=== PATIENT | male | born 1970 | race African-American/Black ===

== ENCOUNTER 2016-10-05 00:49 | Emergency (ER) | payer OTHER ==
[~2016-10-05] VITALS: Ht 170.2 cm; Wt 116.0 kg
[~2016-10-05 00:49] MED LIST: AMOXICILLIN500 MG PO; ASPIRIN EC325 MG PO; ATORVASTATI80 MG/TAB PO; AUGMENTIN875TAB PO; BACLOFEN10 MG PO; CARVEDILOL25 MG PO; CLONIDINE0.1 MG PO; COREG25 MG PO; EFFIENT10 MG PO; FLEXERIL PO; HYDRALAZINE50 MG PO; ISOSORB MONO30 MG PO; KEFLEX500 M1 PO; LASIX 40 MG TAB40 MG PO; LISINOPRIL20 MG PO; NAPROSYN500 MG PO; NORVASC2.5 MG PO; PLAVIX75 MG PO; TORSEMIDE20 M1 PO; ULTRAM50 M1 PO; ZOFRAN ODT8 MG PO; ZPAK PO
[2016-10-05 01:51] LABS: HEMATOCRIT 41.5 % (39.0-50.0); HEMOGLOBIN 13.2 g/dl (14.0-18.0); IMMATURE GRANULOCYTES 0.2 % (0.0-1.0); MEAN CELL VOLUME 96.1 fL CALC (80.0-100.0); MEAN CORPUSCULAR HGB 30.6 pG CALC (26.0-32.0); MEAN CORPUSCULAR HGB CONC 31.8 g/L CALC (32.0-36.0); NEUT# 5.14 thou/uL (1.82-7.42); RED BLOOD COUNT 4.32 mill/uL (4.70-6.10); RED CELL DISTRI WIDTH 15.1 % (11.5-15.5)
[2016-10-05 01:56] LABS: ALBUMIN 3.5 g/dL (3.2-5.0); ALKALINE PHOSPHATASE 65 u/l (38-126); ANION GAP 15 (6-22 (CALC)); BILIRUBIN, TOTAL 0.8 mg/dL (0.0-1.4); BUN 24 mg/dL (9-20); BUN/CREATININE RATIO 17 (12-20 (CALC)); CALCIUM 8.7 mg/dL (8.4-10.2); CARBON DIOXIDE 26 mmol/l (22-30); CHLORIDE 106 mmol/l (95-108); CREATININE 1.4 mg/dL (0.7-1.3); GFR 55 ML/MIN (>=60 (CALC)); GFR FOR AFR.AMER. > 60 ML/MIN (>=60 (CALC)); GLUCOSE 116 mg/dL (75-110); POTASSIUM 4.6 mmol/l (3.5-5.1); SGOT/AST 49 u/l (17-59); SGPT/ALT 47 u/l (21-72); SODIUM 142 mmol/l (137-146); TOTAL PROTEIN 6.7 g/dL (6.3-8.2)
[2016-10-05 02:08] LABS: MYOGLOBIN 135 ng/mL (0 - 121)
[2016-10-05 03:30] LABS: URINE BILIRUBIN - DIPSTICK SMALL (NEGATIVE); URINE BLOOD DIPSTICK TRACE-INTACT (NEGATIVE); URINE CLARITY CLOUDY; URINE COLOR YELLOW; URINE GLUCOSE - DIPSTICK NEGATIVE (NEGATIVE); URINE KETONE TRACE mg/dL (NEGATIVE); URINE LEUK ESTERASE NEGATIVE (NEGATIVE); URINE NITRITE - DIPSTICK NEGATIVE (Negative); URINE PROTEIN - DIPSTICK >=300 mg/dL (NEG-TRACE); URINE SPECIFIC GRAVITY >=1.030
[2016-10-05 03:38] LABS: URINE BACTERIA FEW hpf; URINE HYALINE CAST FEW lpf (NONE-RARE); URINE MUCUS FEW hpf (NONE-FEW); URINE SQUAMOUS EPITHELIAL CELL MODERATE EPI/hpf (0-FEW); URINE WAXY CAST MANY lpf
[2016-10-05] MEDS ORDERED: CIPROFLOXACN500 MG PO (03:50)
[2016-10-05 04:53] VITALS: BP 123/85
== END 2016-10-05 05:00 | disposition home or self-care (01) | DRG 312 ==
LOC: ED 00:49
PROVIDERS: Emergency Medicine
DX: R55 Syncope and collapse (principal); T17.928A Food in respiratory tract, part unspecified causing other injury, initial encounter; N39.0 Urinary tract infection, site not specified; Y92.003 Bedroom of unspecified non-institutional (private) residence as the place of occurrence of the external cause; R06.02 Shortness of breath; X58.XXXA Exposure to other specified factors, initial encounter; Y92.009 Unspecified place in unspecified non-institutional (private) residence as the place of occurrence of the external cause

== ENCOUNTER 2016-10-05 16:16 | Emergency (ER) | payer OTHER ==
[~2016-10-05] VITALS: Ht 170.2 cm; Wt 121.0 kg
[~2016-10-05 16:16] MED LIST changes: +CIPROFLOXACN500 MG PO
[2016-10-05 16:58] VITALS: BP 160/110
== END 2016-10-05 17:03 | disposition home or self-care (01) | DRG 206 ==
LOC: ED 16:16
DX: T17.928A Food in respiratory tract, part unspecified causing other injury, initial encounter (principal); R06.02 Shortness of breath; X58.XXXA Exposure to other specified factors, initial encounter; Y92.009 Unspecified place in unspecified non-institutional (private) residence as the place of occurrence of the external cause

== ENCOUNTER 2016-10-22 17:58 | Emergency (ER) | payer OTHER ==
[~2016-10-22] VITALS: Ht 170.2 cm; Wt 125.0 kg
[2016-10-22 18:40] LABS: HEMATOCRIT 41.3 % (39.0-50.0); HEMOGLOBIN 13.4 g/dl (14.0-18.0); IMMATURE GRANULOCYTES 0.1 % (0.0-1.0); MEAN CELL VOLUME 95.4 fL CALC (80.0-100.0); MEAN CORPUSCULAR HGB 30.9 pG CALC (26.0-32.0); MEAN CORPUSCULAR HGB CONC 32.4 g/L CALC (32.0-36.0); NEUT# 5.36 thou/uL (1.82-7.42); RED BLOOD COUNT 4.33 mill/uL (4.70-6.10); RED CELL DISTRI WIDTH 15.1 % (11.5-15.5)
[2016-10-22 18:58] LABS: ALBUMIN 3.9 g/dL (3.2-5.0); ALKALINE PHOSPHATASE 62 u/l (38-126); ANION GAP 17 (6-22 (CALC)); BUN 21 mg/dL (9-20); BUN/CREATININE RATIO 14 (12-20 (CALC)); CALCIUM 9.3 mg/dL (8.4-10.2); CARBON DIOXIDE 28 mmol/l (22-30); CHLORIDE 101 mmol/l (95-108); CREATININE 1.5 mg/dL (0.7-1.3); GFR 51 ML/MIN (>=60 (CALC)); GFR FOR AFR.AMER. > 60 ML/MIN (>=60 (CALC)); GLUCOSE 119 mg/dL (75-110); POTASSIUM 4.5 mmol/l (3.5-5.1); SGOT/AST 40 u/l (17-59); SGPT/ALT 48 u/l (21-72); SODIUM 141 mmol/l (137-146); TOTAL PROTEIN 7.1 g/dL (6.3-8.2)
[2016-10-22 19:10] LABS: MYOGLOBIN 105 ng/mL (0 - 121)
[2016-10-22 20:40] LABS: URINE BILIRUBIN - DIPSTICK NEGATIVE (NEGATIVE); URINE BLOOD DIPSTICK NEGATIVE (NEGATIVE); URINE CLARITY CLEAR; URINE COLOR YELLOW; URINE GLUCOSE - DIPSTICK NEGATIVE (NEGATIVE); URINE KETONE NEGATIVE (NEGATIVE); URINE LEUK ESTERASE NEGATIVE (NEGATIVE); URINE NITRITE - DIPSTICK NEGATIVE (Negative); URINE PROTEIN - DIPSTICK 30 mg/dL (NEG-TRACE); URINE SPECIFIC GRAVITY 1.025; URINE UROBILINOGEN - DIPSTICK 0.2 E.U./dL (0.2)
[2016-10-22 20:43] LABS: URINE RBC 0-2 RBC/hpf (0-5); URINE WBC 0-2 WBC/hpf (0-5)
[2016-10-22] MEDS ORDERED: MEDDOSEPAK PO (21:26)
[2016-10-22 21:42] VITALS: BP 149/97
== END 2016-10-22 21:39 | disposition home or self-care (01) | DRG 192 ==
LOC: ED 17:58
DX: J44.1 Chronic obstructive pulmonary disease with (acute) exacerbation (principal); I10 Essential (primary) hypertension; E78.5 Hyperlipidemia, unspecified; I25.2 Old myocardial infarction; Z95.5 Presence of coronary angioplasty implant and graft; Z86.73 Personal history of transient ischemic attack (TIA), and cerebral infarction without residual deficits; R55 Syncope and collapse

== ENCOUNTER 2016-12-02 03:30 | Emergency (ER) | payer OTHER ==
[~2016-12-02] VITALS: Ht 170.2 cm; Wt 121.8 kg
[~2016-12-02 03:30] MED LIST changes: +MEDDOSEPAK PO
[2016-12-02] MEDS ORDERED: LASIX 20 MG20 MG/TAB PO (03:55)
[2016-12-02] MEDS ORDERED: NITROGLYCERIN0.4 MG SL (03:57)
[2016-12-02] MEDS ORDERED: CLONIDINE PO (04:00)
[2016-12-02 04:19] LABS: HEMATOCRIT 39.7 % (39.0-50.0); HEMOGLOBIN 12.5 g/dl (14.0-18.0); IMMATURE GRANULOCYTES 0.3 % (0.0-1.0); MEAN CELL VOLUME 97.3 fL CALC (80.0-100.0); MEAN CORPUSCULAR HGB 30.6 pG CALC (26.0-32.0); MEAN CORPUSCULAR HGB CONC 31.5 g/L CALC (32.0-36.0); NEUT# 4.57 thou/uL (1.82-7.42); RED BLOOD COUNT 4.08 mill/uL (4.70-6.10); RED CELL DISTRI WIDTH 15.5 % (11.5-15.5)
[2016-12-02 04:26] LABS: ALBUMIN 3.4 g/dL (3.2-5.0); ALKALINE PHOSPHATASE 51 u/l (38-126); ANION GAP 12 (6-22 (CALC)); BUN 20 mg/dL (9-20); BUN/CREATININE RATIO 14 (12-20 (CALC)); CALCIUM 8.6 mg/dL (8.4-10.2); CARBON DIOXIDE 27 mmol/l (22-30); CHLORIDE 106 mmol/l (95-108); CREATININE 1.4 mg/dL (0.7-1.3); GFR 55 ML/MIN (>=60 (CALC)); GFR FOR AFR.AMER. > 60 ML/MIN (>=60 (CALC)); GLUCOSE 103 mg/dL (75-110); SGOT/AST 34 u/l (17-59); SGPT/ALT 44 u/l (21-72); SODIUM 141 mmol/l (137-146); TOTAL PROTEIN 6.4 g/dL (6.3-8.2)
[2016-12-02 04:31] LABS: INTERNATIONAL NORMALIZED RATIO 1.1 RATIO (0.7-1.3); PROTHROMBIN TIME 11.8 SECONDS (9.0-12.5)
[2016-12-02 04:38] LABS: MYOGLOBIN 80 ng/mL (0 - 121)
[2016-12-02 05:44] VITALS: BP 100/56
[2016-12-03] MEDS ORDERED: ANTIVERT PO (15:34)
== END 2016-12-02 05:55 | disposition home or self-care (01) | DRG 312 ==
LOC: ED 03:30
PROVIDERS: Emergency Medicine
DX: R55 Syncope and collapse (principal); I10 Essential (primary) hypertension; E78.5 Hyperlipidemia, unspecified; I25.2 Old myocardial infarction; Z86.73 Personal history of transient ischemic attack (TIA), and cerebral infarction without residual deficits; Z95.5 Presence of coronary angioplasty implant and graft

== ENCOUNTER 2016-12-03 12:41 | Emergency (ER) | payer OTHER ==
[~2016-12-03] VITALS: Ht 170.2 cm; Wt 128.5 kg
[~2016-12-03 12:41] MED LIST changes: +CLONIDINE PO; +LASIX 20 MG20 MG/TAB PO; +NITROGLYCERIN0.4 MG SL
[2016-12-03 14:04] LABS: HEMATOCRIT 40.2 % (39.0-50.0); HEMOGLOBIN 12.9 g/dl (14.0-18.0); IMMATURE GRANULOCYTES 0.3 % (0.0-1.0); MEAN CELL VOLUME 95.9 fL CALC (80.0-100.0); MEAN CORPUSCULAR HGB 30.8 pG CALC (26.0-32.0); MEAN CORPUSCULAR HGB CONC 32.1 g/L CALC (32.0-36.0); NEUT# 5.02 thou/uL (1.82-7.42); RED BLOOD COUNT 4.19 mill/uL (4.70-6.10); RED CELL DISTRI WIDTH 15.5 % (11.5-15.5)
[2016-12-03 14:29] LABS: ALBUMIN 3.5 g/dL (3.2-5.0); BILIRUBIN, TOTAL 1.2 mg/dL (0.0-1.4); CREATININE 1.7 mg/dL (0.7-1.3); POTASSIUM 4.3 mmol/l (3.5-5.1); TOTAL PROTEIN 6.3 g/dL (6.3-8.2)
[2016-12-03] MEDS ORDERED: ANTIVERT PO (15:34)
[2016-12-03 15:37] VITALS: BP 144/94
== END 2016-12-03 15:27 | disposition home or self-care (01) | DRG 149 ==
LOC: ED 12:41
PROVIDERS: Emergency Medicine
DX: R42 Dizziness and giddiness (principal); I10 Essential (primary) hypertension; E78.5 Hyperlipidemia, unspecified; I25.2 Old myocardial infarction; Z86.73 Personal history of transient ischemic attack (TIA), and cerebral infarction without residual deficits; Z95.5 Presence of coronary angioplasty implant and graft

== ENCOUNTER 2016-12-14 19:58 | Emergency (ER) | payer OTHER ==
[~2016-12-14] VITALS: Ht 170.2 cm; Wt 127.6 kg
[~2016-12-14 19:58] MED LIST changes: +ANTIVERT PO
[2016-12-14 20:38] LABS: HEMATOCRIT 41.8 % (39.0-50.0); HEMOGLOBIN 13.3 g/dl (14.0-18.0); IMMATURE GRANULOCYTES 0.3 % (0.0-1.0); MEAN CELL VOLUME 96.1 fL CALC (80.0-100.0); MEAN CORPUSCULAR HGB 30.6 pG CALC (26.0-32.0); MEAN CORPUSCULAR HGB CONC 31.8 g/L CALC (32.0-36.0); NEUT# 5.09 thou/uL (1.82-7.42); RED BLOOD COUNT 4.35 mill/uL (4.70-6.10); RED CELL DISTRI WIDTH 15.7 % (11.5-15.5)
[2016-12-14 21:11] LABS: ALBUMIN 3.6 g/dL (3.2-5.0); CALCIUM 8.9 mg/dL (8.4-10.2); CREATININE 1.6 mg/dL (0.7-1.3); TOTAL PROTEIN 6.4 g/dL (6.3-8.2)
[2016-12-14] MEDS ORDERED: MEDDOSEPAK PO (23:02)
[2016-12-14] MEDS ORDERED: ZPAK PO (23:02)
[2016-12-14 23:10] LABS: URINE BILIRUBIN - DIPSTICK NEGATIVE (NEGATIVE); URINE BLOOD DIPSTICK NEGATIVE (NEGATIVE); URINE CLARITY SLIGHT CLOUDY; URINE COLOR YELLOW; URINE GLUCOSE - DIPSTICK NEGATIVE (NEGATIVE); URINE KETONE NEGATIVE (NEGATIVE); URINE LEUK ESTERASE NEGATIVE (NEGATIVE); URINE NITRITE - DIPSTICK NEGATIVE (Negative); URINE PROTEIN - DIPSTICK 100 mg/dL (NEG-TRACE); URINE SPECIFIC GRAVITY >=1.030
[2016-12-14 23:16] LABS: BARBITURATES NEGATIVE (NEGATIVE); COCAINE NEGATIVE (NEGATIVE); METHADONE NEGATIVE (NEGATIVE); OXCYCODONE NEGATIVE (NEGATIVE); TETRAHYDROCANNABIONOL NEGATIVE (NEGATIVE); TRICYLIC ANTIDEPRESSANTS NEGATIVE (NEGATIVE)
[2016-12-14 23:17] LABS: URINE BACTERIA FEW hpf; URINE HYALINE CAST FEW lpf (NONE-RARE); URINE RBC 0-2 RBC/hpf (0-5); URINE SQUAMOUS EPITHELIAL CELL MANY EPI/hpf (0-FEW)
[2016-12-14 23:45] VITALS: BP 151/100
== END 2016-12-14 23:45 | disposition home or self-care (01) | DRG 192 ==
LOC: ED 19:58
PROVIDERS: Emergency Medicine
DX: J44.1 Chronic obstructive pulmonary disease with (acute) exacerbation (principal); I10 Essential (primary) hypertension; R55 Syncope and collapse; E78.5 Hyperlipidemia, unspecified; I25.2 Old myocardial infarction; Z86.73 Personal history of transient ischemic attack (TIA), and cerebral infarction without residual deficits

== ENCOUNTER 2017-02-12 19:50 | Emergency (ER) | payer OTHER ==
[~2017-02-12] VITALS: Ht 170.2 cm; Wt 127.0 kg
[2017-02-12 21:13] LABS: HEMATOCRIT 42.9 % (39.0-50.0); HEMOGLOBIN 13.7 g/dl (14.0-18.0); IMMATURE GRANULOCYTES 0.3 % (0.0-1.0); MEAN CELL VOLUME 97.5 fL CALC (80.0-100.0); MEAN CORPUSCULAR HGB 31.1 pG CALC (26.0-32.0); MEAN CORPUSCULAR HGB CONC 31.9 g/L CALC (32.0-36.0); NEUT# 4.46 thou/uL (1.82-7.42); RED BLOOD COUNT 4.4 mill/uL (4.70-6.10); RED CELL DISTRI WIDTH 15.4 % (11.5-15.5)
[2017-02-12 21:27] LABS: ALBUMIN 4.2 g/dL (3.2-5.0); ALKALINE PHOSPHATASE 65 u/l (38-126); ANION GAP 15 (6-22 (CALC)); BILIRUBIN, TOTAL 1.6 mg/dL (0.0-1.4); BUN 16 mg/dL (9-20); BUN/CREATININE RATIO 15 (12-20 (CALC)); CALCIUM 8.7 mg/dL (8.4-10.2); CARBON DIOXIDE 28 mmol/l (22-30); CHLORIDE 104 mmol/l (95-108); CREATININE 1.1 mg/dL (0.7-1.3); GFR > 60 ML/MIN (>=60 (CALC)); GFR FOR AFR.AMER. > 60 ML/MIN (>=60 (CALC)); GLUCOSE 93 mg/dL (75-110); POTASSIUM 4.9 mmol/l (3.5-5.1); SGOT/AST 72 u/l (17-59); SGPT/ALT 31 u/l (21-72); SODIUM 142 mmol/l (137-146); TOTAL PROTEIN 7.6 g/dL (6.3-8.2)
[2017-02-12 22:26] VITALS: BP 178/101
== END 2017-02-12 22:26 | disposition home or self-care (01) | DRG 607 ==
LOC: ED 19:50
PROVIDERS: Emergency Medicine
DX: R22.43 Localized swelling, mass and lump, lower limb, bilateral (principal); I10 Essential (primary) hypertension; Z86.73 Personal history of transient ischemic attack (TIA), and cerebral infarction without residual deficits; I25.2 Old myocardial infarction; Z95.5 Presence of coronary angioplasty implant and graft; Z79.82 Long term (current) use of aspirin

== ENCOUNTER 2017-03-17 02:49 | Observation (INO) | payer OTHER ==
[~2017-03-17] VITALS: Ht 170.2 cm; Wt 128.2 kg
[2017-03-17] VITALS (17 sets, daily range): BP systolic 72–198; BP diastolic 43–112
[~2017-03-17 02:49] MED LIST changes: +DIOVAN320 MG PO; -LISINOPRIL20 MG PO
[2017-03-17 03:42] LABS: HEMATOCRIT 41.5 % (39.0-50.0); HEMOGLOBIN 13.2 g/dl (14.0-18.0); IMMATURE GRANULOCYTES 0.3 % (0.0-1.0); MEAN CORPUSCULAR HGB 30.8 pG CALC (26.0-32.0); MEAN CORPUSCULAR HGB CONC 31.8 g/L CALC (32.0-36.0); NEUT# 4.32 thou/uL (1.82-7.42); RED BLOOD COUNT 4.28 mill/uL (4.70-6.10); RED CELL DISTRI WIDTH 14.9 % (11.5-15.5)
[2017-03-17 04:03] LABS: ACT PARTIAL THROMBO TIME 24.7 SECONDS (20.0-32.5); ALKALINE PHOSPHATASE 62 u/l (38-126); ANION GAP 17 (6-22 (CALC)); BILIRUBIN, TOTAL 1.4 mg/dL (0.0-1.4); BUN 19 mg/dL (9-20); BUN/CREATININE RATIO 17 (12-20 (CALC)); CALCIUM 8.8 mg/dL (8.4-10.2); CARBON DIOXIDE 23 mmol/l (22-30); CHLORIDE 106 mmol/l (95-108); CREATININE 1.1 mg/dL (0.7-1.3); GFR > 60 ML/MIN (>=60 (CALC)); GFR FOR AFR.AMER. > 60 ML/MIN (>=60 (CALC)); GLUCOSE 103 mg/dL (75-110); INTERNATIONAL NORMALIZED RATIO 1.1 RATIO (0.7-1.3); POTASSIUM 4.1 mmol/l (3.5-5.1); PROTHROMBIN TIME 11.9 SECONDS (9.0-12.5); SGOT/AST 41 u/l (17-59); SGPT/ALT 36 u/l (21-72); SODIUM 142 mmol/l (137-146); TOTAL PROTEIN 6.9 g/dL (6.3-8.2)
[2017-03-17 04:13] LABS: MYOGLOBIN 87 ng/mL (0 - 121)
[2017-03-17 06:14] LABS: URINE BILIRUBIN - DIPSTICK NEGATIVE (NEGATIVE); URINE BLOOD DIPSTICK NEGATIVE (NEGATIVE); URINE CLARITY CLEAR; URINE COLOR YELLOW; URINE GLUCOSE - DIPSTICK NEGATIVE (NEGATIVE); URINE KETONE NEGATIVE (NEGATIVE); URINE LEUK ESTERASE NEGATIVE (NEGATIVE); URINE NITRITE - DIPSTICK NEGATIVE (Negative); URINE PROTEIN - DIPSTICK 100 mg/dL (NEG-TRACE); URINE UROBILINOGEN - DIPSTICK 0.2 E.U./dL (0.2)
[2017-03-17 06:30] LABS: URINE RBC 0-2 RBC/hpf (0-5); URINE WBC 0-2 WBC/hpf (0-5)
[2017-03-18] VITALS (12 sets, daily range): BP systolic 81–160; BP diastolic 49–100
[2017-03-18 05:05] LABS: CALCIUM 8.1 mg/dL (8.4-10.2); CREATININE 1.8 mg/dL (0.7-1.3); POTASSIUM 4.9 mmol/l (3.5-5.1)
[2017-03-18 06:01] LABS: HEMATOCRIT 37.7 % (39.0-50.0); HEMOGLOBIN 11.8 g/dl (14.0-18.0); MEAN CORPUSCULAR HGB 31.3 pG CALC (26.0-32.0); MEAN CORPUSCULAR HGB CONC 31.3 g/L CALC (32.0-36.0); RED BLOOD COUNT 3.77 mill/uL (4.70-6.10); RED CELL DISTRI WIDTH 14.8 % (11.5-15.5)
[2017-03-19 00:05] VITALS: BP 144/82
[2017-03-19 04:50] VITALS: BP 137/83
[2017-03-19 06:56] LABS: HEMATOCRIT 39.7 % (39.0-50.0); HEMOGLOBIN 12.8 g/dl (14.0-18.0); IMMATURE GRANULOCYTES 0.5 % (0.0-1.0); MEAN CELL VOLUME 97.5 fL CALC (80.0-100.0); MEAN CORPUSCULAR HGB 31.4 pG CALC (26.0-32.0); MEAN CORPUSCULAR HGB CONC 32.2 g/L CALC (32.0-36.0); NEUT# 8.16 thou/uL (1.82-7.42); RED BLOOD COUNT 4.07 mill/uL (4.70-6.10); RED CELL DISTRI WIDTH 14.3 % (11.5-15.5)
[2017-03-19 07:09] LABS: ANION GAP 16 (6-22 (CALC)); BUN 28 mg/dL (9-20); BUN/CREATININE RATIO 21 (12-20 (CALC)); CALCIUM 8.8 mg/dL (8.4-10.2); CARBON DIOXIDE 26 mmol/l (22-30); CHLORIDE 103 mmol/l (95-108); CREATININE 1.3 mg/dL (0.7-1.3); GFR 60 ML/MIN (>=60 (CALC)); GFR FOR AFR.AMER. > 60 ML/MIN (>=60 (CALC)); GLUCOSE 137 mg/dL (75-110); MAGNESIUM 1.5 mg/dL (1.6-2.3); POTASSIUM 4.8 mmol/l (3.5-5.1); SODIUM 141 mmol/l (137-146)
[2017-03-19 07:51] VITALS: BP 142/89
[2017-03-19 11:22] VITALS: BP 170/96
[2017-03-19] MEDS ORDERED: PREDNISONE10 MG PO (11:44)
[2017-03-19] MEDS ORDERED: IPRATROPIUM BR0.02 % IN (11:44)
== END 2017-03-19 14:45 | disposition home or self-care (01) | DRG 305 ==
LOC: ED 02:49 → ED-I 06:24 → ED 06:44 → ICU 06:45 → MS2 03-18 15:54
PROVIDERS: Emergency Medicine; Nurse Practitioner Family; ADMIT Internal Medicine; ATTEND Internal Medicine
DX: I16.0 Hypertensive urgency (principal); J96.10 Chronic respiratory failure, unspecified whether with hypoxia or hypercapnia; N17.9 Acute kidney failure, unspecified; I50.22 Chronic systolic (congestive) heart failure; J44.1 Chronic obstructive pulmonary disease with (acute) exacerbation; Z68.41 Body mass index [BMI] 40.0-44.9, adult; I13.0 Hypertensive heart and chronic kidney disease with heart failure and stage 1 through stage 4 chronic kidney disease, or unspecified chronic kidney disease; N18.2 Chronic kidney disease, stage 2 (mild); I25.2 Old myocardial infarction; E78.5 Hyperlipidemia, unspecified; I25.5 Ischemic cardiomyopathy; E66.01 Morbid (severe) obesity due to excess calories; E83.42 Hypomagnesemia; G47.33 Obstructive sleep apnea (adult) (pediatric); I25.118 Atherosclerotic heart disease of native coronary artery with other forms of angina pectoris; Z86.73 Personal history of transient ischemic attack (TIA), and cerebral infarction without residual deficits; Z95.5 Presence of coronary angioplasty implant and graft; Z99.81 Dependence on supplemental oxygen; Z91.19 Patient's noncompliance with other medical treatment and regimen
CPT/HCPCS: G0378; J1650

== ENCOUNTER 2017-04-16 22:48 | Observation (INO) | payer OTHER ==
[~2017-04-16] VITALS: Ht 170.2 cm; Wt 130.0 kg
[~2017-04-16 22:48] MED LIST changes: +IPRATROPIUM BR0.02 % IN; +PREDNISONE10 MG PO
[2017-04-17 01:53] LABS: HEMATOCRIT 42.5 % (39.0-50.0); HEMOGLOBIN 13.2 g/dl (14.0-18.0); IMMATURE GRANULOCYTES 0.3 % (0.0-1.0); MEAN CELL VOLUME 96.8 fL CALC (80.0-100.0); MEAN CORPUSCULAR HGB 30.1 pG CALC (26.0-32.0); MEAN CORPUSCULAR HGB CONC 31.1 g/L CALC (32.0-36.0); NEUT# 4.62 thou/uL (1.82-7.42); RED BLOOD COUNT 4.39 mill/uL (4.70-6.10); RED CELL DISTRI WIDTH 15.2 % (11.5-15.5)
[2017-04-17 02:09] LABS: ALBUMIN 3.8 g/dL (3.2-5.0); ALKALINE PHOSPHATASE 70 u/l (38-126); AMYLASE 38 u/l (30-110); ANION GAP 16 (6-22 (CALC)); BILIRUBIN, TOTAL 1.4 mg/dL (0.0-1.4); BUN 14 mg/dL (9-20); BUN/CREATININE RATIO 10 (12-20 (CALC)); CALCIUM 8.8 mg/dL (8.4-10.2); CARBON DIOXIDE 31 mmol/l (22-30); CHLORIDE 103 mmol/l (95-108); CREATININE 1.3 mg/dL (0.7-1.3); GFR 60 ML/MIN (>=60 (CALC)); GFR FOR AFR.AMER. > 60 ML/MIN (>=60 (CALC)); GLUCOSE 95 mg/dL (75-110); LIPASE 63 u/l (23-300); POTASSIUM 4.2 mmol/l (3.5-5.1); SGOT/AST 41 u/l (17-59); SGPT/ALT 44 u/l (21-72); SODIUM 146 mmol/l (137-146); TOTAL PROTEIN 6.8 g/dL (6.3-8.2)
[2017-04-17 04:55] VITALS: BP 182/120
[2017-04-17 05:20] LABS: URINE BILIRUBIN - DIPSTICK NEGATIVE (NEGATIVE); URINE BLOOD DIPSTICK TRACE-INTACT (NEGATIVE); URINE CLARITY CLEAR; URINE COLOR YELLOW; URINE GLUCOSE - DIPSTICK NEGATIVE (NEGATIVE); URINE KETONE NEGATIVE (NEGATIVE); URINE LEUK ESTERASE NEGATIVE (NEGATIVE); URINE NITRITE - DIPSTICK NEGATIVE (Negative); URINE PH 5.5 (4.5-8.0); URINE PROTEIN - DIPSTICK 100 mg/dL (NEG-TRACE); URINE UROBILINOGEN - DIPSTICK 0.2 E.U./dL (0.2)
[2017-04-17 05:26] LABS: URINE BACTERIA FEW hpf; URINE MUCUS FEW hpf (NONE-FEW); URINE SQUAMOUS EPITHELIAL CELL MODERATE EPI/hpf (0-FEW)
[2017-04-17 05:52] VITALS: BP 168/86
[2017-04-17] MEDS ORDERED: PREDNISONE10 MG PO (13:43)
[2017-04-17 14:04] VITALS: BP 177/101
== END 2017-04-17 16:10 | disposition home or self-care (01) | DRG 392 ==
LOC: ED 22:48 → ED-I 04-17 03:45 → ED 04-17 04:04 → ICU 04-17 04:05
PROVIDERS: Emergency Medicine; ADMIT Internal Medicine; ATTEND Internal Medicine
DX: R10.33 Periumbilical pain (principal); I11.0 Hypertensive heart disease with heart failure; I50.9 Heart failure, unspecified; Z68.41 Body mass index [BMI] 40.0-44.9, adult; I25.10 Atherosclerotic heart disease of native coronary artery without angina pectoris; J44.9 Chronic obstructive pulmonary disease, unspecified; I25.5 Ischemic cardiomyopathy; E66.01 Morbid (severe) obesity due to excess calories; Z95.5 Presence of coronary angioplasty implant and graft
CPT/HCPCS: Q9967; S0164

== ENCOUNTER 2017-04-24 07:05 | Inpatient (IN) | payer OTHER ==
[~2017-04-24] VITALS: Ht 170.2 cm; Wt 131.0 kg
[2017-04-24 07:35] LABS: HEMATOCRIT 40.1 % (39.0-50.0); HEMOGLOBIN 12.9 g/dl (14.0-18.0); IMMATURE GRANULOCYTES 0.1 % (0.0-1.0); MEAN CELL VOLUME 95.5 fL CALC (80.0-100.0); MEAN CORPUSCULAR HGB 30.7 pG CALC (26.0-32.0); MEAN CORPUSCULAR HGB CONC 32.2 g/L CALC (32.0-36.0); NEUT# 4.43 thou/uL (1.82-7.42); RED BLOOD COUNT 4.2 mill/uL (4.70-6.10); RED CELL DISTRI WIDTH 15.2 % (11.5-15.5)
[2017-04-24 08:15] LABS: ALBUMIN 3.9 g/dL (3.2-5.0); ALKALINE PHOSPHATASE 83 u/l (38-126); ANION GAP 16 (6-22 (CALC)); BILIRUBIN, TOTAL 1.2 mg/dL (0.0-1.4); BUN 21 mg/dL (9-20); BUN/CREATININE RATIO 15 (12-20 (CALC)); CALCIUM 8.5 mg/dL (8.4-10.2); CARBON DIOXIDE 28 mmol/l (22-30); CHLORIDE 104 mmol/l (95-108); CREATININE 1.4 mg/dL (0.7-1.3); GFR 55 ML/MIN (>=60 (CALC)); GFR FOR AFR.AMER. > 60 ML/MIN (>=60 (CALC)); GLUCOSE 125 mg/dL (75-110); POTASSIUM 3.6 mmol/l (3.5-5.1); SGOT/AST 47 u/l (17-59); SGPT/ALT 51 u/l (21-72); SODIUM 144 mmol/l (137-146); TOTAL PROTEIN 6.9 g/dL (6.3-8.2)
[2017-04-24 08:27] LABS: MYOGLOBIN 96 ng/mL (0 - 121)
[2017-04-24 12:21] VITALS: BP 159/97
[2017-04-24 15:14] VITALS: BP 161/81
[2017-04-24 16:46] LABS: MAGNESIUM 1.4 mg/dL (1.6-2.3); POTASSIUM 5.1 mmol/l (3.5-5.1)
[2017-04-24 19:20] VITALS: BP 139/85
[2017-04-25 00:10] VITALS: BP 113/60
[2017-04-25 05:03] VITALS: BP 117/70
[2017-04-25 05:53] LABS: HEMATOCRIT 40.1 % (39.0-50.0); HEMOGLOBIN 12.4 g/dl (14.0-18.0); IMMATURE GRANULOCYTES 0.3 % (0.0-1.0); MEAN CELL VOLUME 98.3 fL CALC (80.0-100.0); MEAN CORPUSCULAR HGB 30.4 pG CALC (26.0-32.0); MEAN CORPUSCULAR HGB CONC 30.9 g/L CALC (32.0-36.0); NEUT# 8.39 thou/uL (1.82-7.42); RED BLOOD COUNT 4.08 mill/uL (4.70-6.10); RED CELL DISTRI WIDTH 14.9 % (11.5-15.5)
[2017-04-25 06:09] LABS: ANION GAP 17 (6-22 (CALC)); BUN 23 mg/dL (9-20); BUN/CREATININE RATIO 17 (12-20 (CALC)); CALCIUM 8.5 mg/dL (8.4-10.2); CARBON DIOXIDE 29 mmol/l (22-30); CHLORIDE 102 mmol/l (95-108); CREATININE 1.4 mg/dL (0.7-1.3); GFR 55 ML/MIN (>=60 (CALC)); GFR FOR AFR.AMER. > 60 ML/MIN (>=60 (CALC)); GLUCOSE 133 mg/dL (75-110); MAGNESIUM 2.2 mg/dL (1.6-2.3); POTASSIUM 5.1 mmol/l (3.5-5.1); SODIUM 143 mmol/l (137-146)
[2017-04-25 09:20] VITALS: BP 112/70
[2017-04-25 11:00] VITALS: BP 114/79
[2017-04-25 16:16] VITALS: BP 93/64
[2017-04-25 19:20] VITALS: BP 115/65
[2017-04-26 00:30] VITALS: BP 92/54
[2017-04-26 04:30] VITALS: BP 107/77
[2017-04-26 05:00] VITALS: BP 106/75
[2017-04-26 06:05] LABS: HEMATOCRIT 40.5 % (39.0-50.0); HEMOGLOBIN 12.7 g/dl (14.0-18.0); IMMATURE GRANULOCYTES 0.6 % (0.0-1.0); MEAN CELL VOLUME 97.4 fL CALC (80.0-100.0); MEAN CORPUSCULAR HGB 30.5 pG CALC (26.0-32.0); MEAN CORPUSCULAR HGB CONC 31.4 g/L CALC (32.0-36.0); NEUT# 12.3 thou/uL (1.82-7.42); RED BLOOD COUNT 4.16 mill/uL (4.70-6.10); RED CELL DISTRI WIDTH 15.2 % (11.5-15.5)
[2017-04-26 06:15] LABS: CALCIUM 8.7 mg/dL (8.4-10.2); CREATININE 2.1 mg/dL (0.7-1.3); MAGNESIUM 2.3 mg/dL (1.6-2.3); POTASSIUM 5.1 mmol/l (3.5-5.1)
[2017-04-26 07:49] VITALS: BP 104/74
[2017-04-26 11:00] VITALS: BP 95/65
[2017-04-26 19:55] VITALS: BP 121/82
[2017-04-27 04:45] VITALS: BP 131/89
[2017-04-27 07:33] LABS: HEMATOCRIT 41.3 % (39.0-50.0); HEMOGLOBIN 12.9 g/dl (14.0-18.0); MEAN CELL VOLUME 95.6 fL CALC (80.0-100.0); MEAN CORPUSCULAR HGB 29.9 pG CALC (26.0-32.0); MEAN CORPUSCULAR HGB CONC 31.2 g/L CALC (32.0-36.0); RED BLOOD COUNT 4.32 mill/uL (4.70-6.10); RED CELL DISTRI WIDTH 15.3 % (11.5-15.5)
[2017-04-27 07:51] LABS: CALCIUM 8.7 mg/dL (8.4-10.2); CREATININE 2.1 mg/dL (0.7-1.3)
[2017-04-27 08:00] VITALS: BP 126/85
[2017-04-27 08:33] LABS: POTASSIUM 5.4 mmol/l (3.5-5.1)
[2017-04-27 12:00] VITALS: BP 140/79
[2017-04-27] MEDS ORDERED: PANTOPRAZOLE SO40 M1 PO (14:25)
== END 2017-04-27 15:05 | disposition home or self-care (01) | DRG 291 ==
LOC: ED 07:05 → ED-I 08:26 → ED 08:40 → MS2 08:41
PROVIDERS: Emergency Medicine; Nurse Practitioner Family; ADMIT Internal Medicine; ATTEND Internal Medicine
DX: I13.0 Hypertensive heart and chronic kidney disease with heart failure and stage 1 through stage 4 chronic kidney disease, or unspecified chronic kidney disease (principal); I50.23 Acute on chronic systolic (congestive) heart failure; J96.20 Acute and chronic respiratory failure, unspecified whether with hypoxia or hypercapnia; N17.9 Acute kidney failure, unspecified; Z68.41 Body mass index [BMI] 40.0-44.9, adult; J44.1 Chronic obstructive pulmonary disease with (acute) exacerbation; N18.2 Chronic kidney disease, stage 2 (mild); I25.118 Atherosclerotic heart disease of native coronary artery with other forms of angina pectoris; I25.5 Ischemic cardiomyopathy; I25.2 Old myocardial infarction; E78.5 Hyperlipidemia, unspecified; E66.01 Morbid (severe) obesity due to excess calories; G47.33 Obstructive sleep apnea (adult) (pediatric); E83.42 Hypomagnesemia; Z91.19 Patient's noncompliance with other medical treatment and regimen; Z95.5 Presence of coronary angioplasty implant and graft; Z86.73 Personal history of transient ischemic attack (TIA), and cerebral infarction without residual deficits
CPT/HCPCS: S0164

== ENCOUNTER 2017-05-02 00:12 | Inpatient (IN) | payer OTHER ==
[~2017-05-02] VITALS: Ht 170.2 cm; Wt 136.0 kg
[~2017-05-02 00:12] MED LIST changes: +PANTOPRAZOLE SO40 M1 PO
[2017-05-02 01:28] LABS: HEMATOCRIT 39.7 % (39.0-50.0); HEMOGLOBIN 12.3 g/dl (14.0-18.0); IMMATURE GRANULOCYTES 0.4 % (0.0-1.0); MEAN CELL VOLUME 95.7 fL CALC (80.0-100.0); MEAN CORPUSCULAR HGB 29.6 pG CALC (26.0-32.0); NEUT# 6.22 thou/uL (1.82-7.42); RED BLOOD COUNT 4.15 mill/uL (4.70-6.10); RED CELL DISTRI WIDTH 15.2 % (11.5-15.5); URINE BILIRUBIN - DIPSTICK NEGATIVE (NEGATIVE); URINE BLOOD DIPSTICK NEGATIVE (NEGATIVE); URINE CLARITY CLEAR; URINE COLOR YELLOW; URINE GLUCOSE - DIPSTICK NEGATIVE (NEGATIVE); URINE KETONE NEGATIVE (NEGATIVE); URINE LEUK ESTERASE NEGATIVE (NEGATIVE); URINE NITRITE - DIPSTICK NEGATIVE (Negative); URINE PROTEIN - DIPSTICK NEGATIVE (NEG-TRACE); URINE UROBILINOGEN - DIPSTICK 0.2 E.U./dL (0.2)
[2017-05-02 01:40] LABS: ALBUMIN 3.6 g/dL (3.2-5.0); ALKALINE PHOSPHATASE 63 u/l (38-126); ANION GAP 15 (6-22 (CALC)); BILIRUBIN, TOTAL 1.6 mg/dL (0.0-1.4); BUN 21 mg/dL (9-20); BUN/CREATININE RATIO 20 (12-20 (CALC)); CALCIUM 8.4 mg/dL (8.4-10.2); CARBON DIOXIDE 31 mmol/l (22-30); CHLORIDE 105 mmol/l (95-108); CREATININE 1.1 mg/dL (0.7-1.3); GFR > 60 ML/MIN (>=60 (CALC)); GFR FOR AFR.AMER. > 60 ML/MIN (>=60 (CALC)); GLUCOSE 86 mg/dL (75-110); POTASSIUM 4.2 mmol/l (3.5-5.1); SGOT/AST 50 u/l (17-59); SGPT/ALT 70 u/l (21-72); SODIUM 147 mmol/l (137-146); TOTAL PROTEIN 6.1 g/dL (6.3-8.2)
[2017-05-02 01:46] LABS: ACT PARTIAL THROMBO TIME 24.5 SECONDS (20.0-32.5); INTERNATIONAL NORMALIZED RATIO 1.1 RATIO (0.7-1.3); PROTHROMBIN TIME 11.9 SECONDS (9.0-12.5)
[2017-05-02 01:55] LABS: MYOGLOBIN 65 ng/mL (0 - 121)
[2017-05-02 06:12] VITALS: BP 162/88
[2017-05-02 08:01] VITALS: BP 169/116
[2017-05-02 10:56] VITALS: BP 184/103
[2017-05-02 14:12] VITALS: BP 114/61
== END 2017-05-02 15:00 | disposition short-term general hospital (02) | DRG 303 ==
LOC: ED 00:12 → ED-I 04:00 → ED 04:42 → MS2 04:43
PROVIDERS: Emergency Medicine; ADMIT Internal Medicine; ATTEND Internal Medicine
DX: I25.5 Ischemic cardiomyopathy (principal); I13.0 Hypertensive heart and chronic kidney disease with heart failure and stage 1 through stage 4 chronic kidney disease, or unspecified chronic kidney disease; I50.22 Chronic systolic (congestive) heart failure; Z68.42 Body mass index [BMI] 45.0-49.9, adult; E66.01 Morbid (severe) obesity due to excess calories; J44.9 Chronic obstructive pulmonary disease, unspecified; G47.33 Obstructive sleep apnea (adult) (pediatric); F17.200 Nicotine dependence, unspecified, uncomplicated; F12.90 Cannabis use, unspecified, uncomplicated; I25.118 Atherosclerotic heart disease of native coronary artery with other forms of angina pectoris; N18.9 Chronic kidney disease, unspecified; Z95.5 Presence of coronary angioplasty implant and graft
CPT/HCPCS: G0378

== ENCOUNTER 2017-05-26 05:36 | Emergency (ER) | payer OTHER ==
[~2017-05-26] VITALS: Ht 170.2 cm; Wt 119.4 kg
[2017-05-26] MEDS ORDERED: PERCOCET 5/325M1 TAB PO (06:51)
[2017-05-26] MEDS ORDERED: AMOXICILLIN500 MG PO (06:51)
[2017-05-26 06:56] VITALS: BP 134/97
[2017-05-27] MEDS ORDERED: ULTRAM50 M1 PO (21:19)
== END 2017-05-26 07:00 | disposition home or self-care (01) | DRG 153 ==
LOC: ED 05:36
DX: H66.91 Otitis media, unspecified, right ear (principal); I11.0 Hypertensive heart disease with heart failure; I50.9 Heart failure, unspecified; E78.5 Hyperlipidemia, unspecified; I25.2 Old myocardial infarction; J44.9 Chronic obstructive pulmonary disease, unspecified; Z95.5 Presence of coronary angioplasty implant and graft; Z99.81 Dependence on supplemental oxygen; Z86.73 Personal history of transient ischemic attack (TIA), and cerebral infarction without residual deficits

== ENCOUNTER 2017-05-27 20:02 | Emergency (ER) | payer OTHER ==
[~2017-05-27] VITALS: Ht 170.2 cm; Wt 118.8 kg
[~2017-05-27 20:02] MED LIST changes: +PERCOCET 5/325M1 TAB PO
[2017-05-27] MEDS ORDERED: ULTRAM50 M1 PO (21:19)
[2017-05-27 21:35] VITALS: BP 155/88
== END 2017-05-27 21:36 | disposition home or self-care (01) | DRG 563 ==
LOC: ED 20:02
DX: S93.601A Unspecified sprain of right foot, initial encounter (principal); I10 Essential (primary) hypertension; J44.9 Chronic obstructive pulmonary disease, unspecified; E78.5 Hyperlipidemia, unspecified; I25.2 Old myocardial infarction; W19.XXXA Unspecified fall, initial encounter; Y93.9 Activity, unspecified; Y92.009 Unspecified place in unspecified non-institutional (private) residence as the place of occurrence of the external cause; Z99.81 Dependence on supplemental oxygen; Z86.73 Personal history of transient ischemic attack (TIA), and cerebral infarction without residual deficits; Z95.5 Presence of coronary angioplasty implant and graft

== ENCOUNTER 2017-07-09 02:41 | Emergency (ER) | payer OTHER ==
[~2017-07-09] VITALS: Ht 170.2 cm; Wt 116.4 kg
[2017-07-09] MEDS ORDERED: UNK DIURETIC (03:15)
[2017-07-09] MEDS ORDERED: ROBITUSSIN AC10 ML PO (03:16)
[2017-07-09 03:46] LABS: BILIRUBIN, TOTAL 0.8 mg/dL (0.0-1.4); CALCIUM 8.7 mg/dL (8.4-10.2); CREATININE 1.6 mg/dL (0.7-1.3); POTASSIUM 4.7 mmol/l (3.5-5.1); TOTAL PROTEIN 6.8 g/dL (6.3-8.2)
[2017-07-09 03:56] LABS: HEMATOCRIT 41.3 % (39.0-50.0); HEMOGLOBIN 13.1 g/dl (14.0-18.0); IMMATURE GRANULOCYTES 0.1 % (0.0-1.0); MEAN CELL VOLUME 94.7 fL CALC (80.0-100.0); MEAN CORPUSCULAR HGB CONC 31.7 g/L CALC (32.0-36.0); NEUT# 4.25 thou/uL (1.82-7.42); RED BLOOD COUNT 4.36 mill/uL (4.70-6.10)
[2017-07-09 04:07] LABS: URINE BILIRUBIN - DIPSTICK NEGATIVE (NEGATIVE); URINE BLOOD DIPSTICK TRACE-INTACT (NEGATIVE); URINE COLOR YELLOW; URINE GLUCOSE - DIPSTICK NEGATIVE (NEGATIVE); URINE KETONE NEGATIVE (NEGATIVE); URINE LEUK ESTERASE NEGATIVE (NEGATIVE); URINE NITRITE - DIPSTICK NEGATIVE (Negative); URINE PROTEIN - DIPSTICK >=300 mg/dL (NEG-TRACE); URINE SPECIFIC GRAVITY >=1.030
[2017-07-09 04:08] LABS: URINE CLARITY CLEAR
[2017-07-09 04:11] LABS: BARBITURATES NEGATIVE (NEGATIVE); COCAINE NEGATIVE (NEGATIVE); METHADONE NEGATIVE (NEGATIVE); OXCYCODONE NEGATIVE (NEGATIVE); TETRAHYDROCANNABIONOL NEGATIVE (NEGATIVE); TRICYLIC ANTIDEPRESSANTS NEGATIVE (NEGATIVE)
[2017-07-09 04:18] LABS: URINE BACTERIA FEW hpf; URINE TRANSITIONAL EPI. CELLS FEW hpf
[2017-07-09 04:35] VITALS: BP 131/80
[2017-07-09] MEDS ORDERED: ANTIVERT PO (04:59)
== END 2017-07-09 05:00 | disposition home or self-care (01) | DRG 149 ==
LOC: ED 02:41
PROVIDERS: Emergency Medicine
DX: R42 Dizziness and giddiness (principal); I11.0 Hypertensive heart disease with heart failure; I50.9 Heart failure, unspecified; Z99.81 Dependence on supplemental oxygen; N28.9 Disorder of kidney and ureter, unspecified; E78.5 Hyperlipidemia, unspecified; I25.2 Old myocardial infarction; Z86.73 Personal history of transient ischemic attack (TIA), and cerebral infarction without residual deficits; Z95.5 Presence of coronary angioplasty implant and graft

== ENCOUNTER 2017-07-20 13:04 | Emergency (ER) | payer OTHER ==
[~2017-07-20] VITALS: Ht 170.2 cm; Wt 121.0 kg
[~2017-07-20 13:04] MED LIST changes: +ROBITUSSIN AC10 ML PO; +UNK DIURETIC
[2017-07-20 13:47] LABS: HEMATOCRIT 39.5 % (39.0-50.0); HEMOGLOBIN 12.7 g/dl (14.0-18.0); IMMATURE GRANULOCYTES 0.3 % (0.0-1.0); MEAN CELL VOLUME 92.1 fL CALC (80.0-100.0); MEAN CORPUSCULAR HGB 29.6 pG CALC (26.0-32.0); MEAN CORPUSCULAR HGB CONC 32.2 g/L CALC (32.0-36.0); NEUT# 5.86 thou/uL (1.82-7.42); RED BLOOD COUNT 4.29 mill/uL (4.70-6.10); RED CELL DISTRI WIDTH 16.7 % (11.5-15.5)
[2017-07-20 14:02] LABS: ALBUMIN 4.1 g/dL (3.2-5.0); ALKALINE PHOSPHATASE 71 u/l (38-126); ANION GAP 14 (6-22 (CALC)); BILIRUBIN, TOTAL 1.3 mg/dL (0.0-1.4); BUN 17 mg/dL (9-20); BUN/CREATININE RATIO 14 (12-20 (CALC)); CALCIUM 9.4 mg/dL (8.4-10.2); CARBON DIOXIDE 28 mmol/l (22-30); CHLORIDE 107 mmol/l (95-108); CREATININE 1.2 mg/dL (0.7-1.3); GFR > 60 ML/MIN (>=60 (CALC)); GFR FOR AFR.AMER. > 60 ML/MIN (>=60 (CALC)); GLUCOSE 111 mg/dL (75-110); POTASSIUM 3.8 mmol/l (3.5-5.1); SGOT/AST 50 u/l (17-59); SGPT/ALT 43 u/l (21-72); SODIUM 146 mmol/l (137-146); TOTAL PROTEIN 6.9 g/dL (6.3-8.2)
[2017-07-20 14:11] LABS: MYOGLOBIN 189 ng/mL (0 - 121)
[2017-07-20] MEDS ORDERED: LORTAB 1010 MG PO (15:09)
[2017-07-20 15:18] VITALS: BP 158/86
== END 2017-07-20 15:34 | disposition home or self-care (01) | DRG 563 ==
LOC: ED 13:04
PROVIDERS: Emergency Medicine
DX: S93.402A Sprain of unspecified ligament of left ankle, initial encounter (principal); I11.0 Hypertensive heart disease with heart failure; I50.9 Heart failure, unspecified; W19.XXXA Unspecified fall, initial encounter

== ENCOUNTER 2017-08-11 02:55 | Emergency (ER) | payer OTHER ==
[~2017-08-11] VITALS: Ht 170.2 cm; Wt 121.4 kg
[~2017-08-11 02:55] MED LIST changes: +LORTAB 1010 MG PO
[2017-08-11] MEDS ORDERED: CETIRIZINE10 MG PO (03:00)
[2017-08-11] MEDS ORDERED: DIOVAN320 MG PO (03:01)
[2017-08-11] MEDS ORDERED: PLAVIX75 MG PO (03:02)
[2017-08-11] MEDS ORDERED: BUMETANIDE1 MG PO (03:04)
[2017-08-11] MEDS ORDERED: DIOVAN160 MG PO (03:05)
[2017-08-11 03:48] LABS: HEMATOCRIT 38.1 % (39.0-50.0); HEMOGLOBIN 11.6 g/dl (14.0-18.0); IMMATURE GRANULOCYTES 0.4 % (0.0-1.0); MEAN CELL VOLUME 94.5 fL CALC (80.0-100.0); MEAN CORPUSCULAR HGB 28.8 pG CALC (26.0-32.0); MEAN CORPUSCULAR HGB CONC 30.4 g/L CALC (32.0-36.0); NEUT# 5.07 thou/uL (1.82-7.42); RED BLOOD COUNT 4.03 mill/uL (4.70-6.10); RED CELL DISTRI WIDTH 16.9 % (11.5-15.5)
[2017-08-11 04:02] LABS: ALKALINE PHOSPHATASE 79 u/l (38-126); ANION GAP 18 (6-22 (CALC)); BILIRUBIN, TOTAL 0.9 mg/dL (0.0-1.4); BUN 17 mg/dL (9-20); BUN/CREATININE RATIO 14 (12-20 (CALC)); CALCIUM 8.9 mg/dL (8.4-10.2); CARBON DIOXIDE 26 mmol/l (22-30); CHLORIDE 106 mmol/l (95-108); CREATININE 1.2 mg/dL (0.7-1.3); GFR > 60 ML/MIN (>=60 (CALC)); GFR FOR AFR.AMER. > 60 ML/MIN (>=60 (CALC)); GLUCOSE 118 mg/dL (75-110); POTASSIUM 4.1 mmol/l (3.5-5.1); SGOT/AST 41 u/l (17-59); SGPT/ALT 25 u/l (21-72); SODIUM 146 mmol/l (137-146)
[2017-08-11 04:14] LABS: MYOGLOBIN 79 ng/mL (0 - 121)
[2017-08-11 04:55] VITALS: BP 163/93
== END 2017-08-11 05:15 | disposition home or self-care (01) | DRG 948 ==
LOC: ED 02:55
PROVIDERS: Emergency Medicine
DX: R53.1 Weakness (principal); I42.9 Cardiomyopathy, unspecified; I50.9 Heart failure, unspecified; R60.0 Localized edema; E11.9 Type 2 diabetes mellitus without complications; I10 Essential (primary) hypertension; Z95.810 Presence of automatic (implantable) cardiac defibrillator

== ENCOUNTER 2017-08-12 20:25 | Inpatient (IN) | payer OTHER ==
[~2017-08-12] VITALS: Ht 170.2 cm; Wt 134.0 kg
[~2017-08-12 20:25] MED LIST changes: +BUMETANIDE1 MG PO; +CETIRIZINE10 MG PO; +DIOVAN160 MG PO
--- NOTE | 2017-08-12 21:14 | NUR ---
PT TAKEN TO ER ROOM 15 BY CORINNE. PT STATES HE TOOK HIS MEDS. STATES HE USES [facility] AT HOME TO GET AROUND. REPORT GIVEN TO ER .
--- NOTE | 2017-08-12 21:23 | NUR ---
PT. WITH C/O EDEMA TO BLE +4 AND ABD. HARD AND DISTENDED AND PAINFUL.
[2017-08-12 21:27] LABS: HEMATOCRIT 41.1 % (39.0-50.0); HEMOGLOBIN 12.5 g/dl (14.0-18.0); IMMATURE GRANULOCYTES 0.3 % (0.0-1.0); MEAN CELL VOLUME 93.4 fL CALC (80.0-100.0); MEAN CORPUSCULAR HGB 28.4 pG CALC (26.0-32.0); MEAN CORPUSCULAR HGB CONC 30.4 g/L CALC (32.0-36.0); NEUT# 3.91 thou/uL (1.82-7.42); RED BLOOD COUNT 4.4 mill/uL (4.70-6.10); RED CELL DISTRI WIDTH 16.8 % (11.5-15.5)
[2017-08-12 21:37] LABS: ALBUMIN 4.3 g/dL (3.2-5.0); ALKALINE PHOSPHATASE 92 u/l (38-126); BILIRUBIN, TOTAL 1.3 mg/dL (0.0-1.4); BUN 18 mg/dL (9-20); BUN/CREATININE RATIO 14 (12-20 (CALC)); CALCIUM 9.3 mg/dL (8.4-10.2); CARBON DIOXIDE 26 mmol/l (22-30); CHLORIDE 103 mmol/l (95-108); CREATININE 1.3 mg/dL (0.7-1.3); GFR 60 ML/MIN (>=60 (CALC)); GFR FOR AFR.AMER. > 60 ML/MIN (>=60 (CALC)); GLUCOSE 108 mg/dL (75-110); LIPASE 46 u/l (23-300); POTASSIUM 4.1 mmol/l (3.5-5.1); SGOT/AST 47 u/l (17-59); SGPT/ALT 39 u/l (21-72); TOTAL PROTEIN 7.5 g/dL (6.3-8.2)
[2017-08-12 21:39] LABS: ANION GAP 16 (6-22 (CALC)); SODIUM 141 mmol/l (137-146)
--- NOTE | 2017-08-12 21:50 | NUR ---
IV LASIX GIVEN PER MD ORDER.
--- NOTE | 2017-08-12 21:51 | NUR ---
O2 2 LIT. NC APPLIED.
--- NOTE | 2017-08-12 21:55 | NUR ---
IV LABETALOL GIVEN PER MD ORDER.
[2017-08-12 22:00] LABS: URINE BLOOD DIPSTICK SMALL (NEGATIVE); URINE COLOR YELLOW; URINE GLUCOSE - DIPSTICK NEGATIVE (NEGATIVE); URINE KETONE NEGATIVE (NEGATIVE); URINE LEUK ESTERASE NEGATIVE (NEGATIVE); URINE NITRITE - DIPSTICK NEGATIVE (Negative); URINE PH 5.5 (4.5-8.0); URINE PROTEIN - DIPSTICK >=300 mg/dL (NEG-TRACE); URINE SPECIFIC GRAVITY >=1.030
[2017-08-12 22:11] LABS: URINE BILIRUBIN - DIPSTICK NEGATIVE (NEGATIVE); URINE CLARITY CLEAR
--- NOTE | 2017-08-12 22:55 | NUR ---
MD IN ROOM TO DISCUSS CLINICAL FINDINGS WITH PT. AND TO ALSO MAKE HIM AWARE OF ADMISSION, VERBALIZED UNDERSTANDING.
--- NOTE | 2017-08-12 23:54 | NUR ---
PT. VOIDED 1 LIT CLEAR CLAIRE URINE.
--- NOTE | 2017-08-12 23:58 | NUR ---
Admission Note Report Given to: TISH HEREDIA Transported by: Wheelchair X Stretcher Transported with: X Nurse Transporter X Patent IV X O2 X Paper Machine Supervisor
[2017-08-13] VITALS (7 sets, daily range): BP systolic 99–157; BP diastolic 70–98
--- NOTE | 2017-08-13 00:15 | NUR ---
PT ARRIVED TO FLOOR WITH ER STAFF. PT AMBULATED TO SCALE; THEN TO BED. VITAL SIGNS OBTAINED. PT ORIENTED TO ROOM AND CALL LIGHT SYSTEM. PT DENIES ANY PAIN OR DISCOMFORT. NO DISTRESS NOTED.O2 2L IN PLACE; PT STATES HOME USE OF O2. ABD DISTENDED; FIRM. BOWEL SOUNDS PRESENT. EDEMA +4 LEG/FEET BILAT NOTED. PEDAL PULSES PALPATED BILAT. TELE IN PLACE. IV RAC FLUSHED WITHOUT DIFFICULTY; NO REDNESS OR EDEMA NOTED. FREQUENT ROUNDS MADE. SAFETY PRECAUTIONS REINFORCED. CALL LIGHT WITHIN REACH.
--- NOTE | 2017-08-13 00:27 | NUR ---
PT. TRANSFERED VIA STRETCHER, TO [facility], NO C/O.
--- NOTE | 2017-08-13 04:15 | NUR ---
TELE IN PLACE. NO DISTRESS NOTED; O2 IN PLACE. ASSESSMENT UNCHANGED. CALL LIGHT WITHIN REACH.
[2017-08-13 06:10] LABS: HEMATOCRIT 37.1 % (39.0-50.0); HEMOGLOBIN 11.5 g/dl (14.0-18.0); MEAN CELL VOLUME 92.5 fL CALC (80.0-100.0); MEAN CORPUSCULAR HGB 28.7 pG CALC (26.0-32.0); RED BLOOD COUNT 4.01 mill/uL (4.70-6.10); RED CELL DISTRI WIDTH 16.6 % (11.5-15.5)
[2017-08-13 06:21] LABS: ANION GAP 17 (6-22 (CALC)); BUN 18 mg/dL (9-20); BUN/CREATININE RATIO 14 (12-20 (CALC)); CALCIUM 9.2 mg/dL (8.4-10.2); CARBON DIOXIDE 25 mmol/l (22-30); CHLORIDE 104 mmol/l (95-108); CREATININE 1.3 mg/dL (0.7-1.3); GFR 60 ML/MIN (>=60 (CALC)); GFR FOR AFR.AMER. > 60 ML/MIN (>=60 (CALC)); GLUCOSE 108 mg/dL (75-110); MAGNESIUM 1.4 mg/dL (1.6-2.3); POTASSIUM 4.7 mmol/l (3.5-5.1); SODIUM 141 mmol/l (137-146)
--- NOTE | 2017-08-13 08:00 | NUR ---
PT RESTING WITH EYES CLOSED; AROUSED EASILY TO VERBAL STIMULI; NO COMPLAINTS VOICED; TELE MONITOR IN PLACE; CALL SAMPSON WITHIN REACH; WILL CONTINUE TO MONITOR.
--- NOTE | 2017-08-13 12:30 | NUR ---
PT IN HIGH BALDERAS POSITION TOLERATING LUNCH WELL; NO COMPLAINTS VOICED; CALL SAMPSON WITHIN REACH; WILL CONTINUE TO MONITOR.
--- NOTE | 2017-08-13 16:47 | NUR ---
PT RESTING WITH EYES CLOSED; NO S/SX OF DISTRESS NOTED
--- NOTE | 2017-08-13 19:05 | NUR ---
REPORT RECEIVED FROM GIOVANNA PALENCIA;PT IN RESTROOM AT THIS TIME;PT VOICES NO COMPLAINTS OR NEEDED;PT EDUCATED TO CALL FOR ASSISTANCE IF NEEDED;CALL LIGHT IN REACH;WILL CONTINUE TO MONITOR
--- NOTE | 2017-08-13 21:15 | NUR ---
PT RESTING IN SEMI FOWLERS POSITION WATCHING TV;A&O X3;ASSESSMENT COMPLETED;RESPIRATIONS EVEN AND UNLABORED,SHALLOW ON 02 @ 2L VIA NC;DIMINISHED LUNG SOUNDS NOTED;PEDAL PULSES WEAK,4+ PITTING EDEMA NOTED TO BILATERAL ANKLES;FEET ELEVATED ON X2 PILLOWS;TELE MONITOR IN PLACE;#20G TO RAC FLUSHED AND PATENT;SKIN INTACT;PT VOICES NO COMPLAINTS OR DISCOMFORTS;PT ENCOURAGED TO CALL FOR ASSISTANCE IF NEEDED;FALL PRECAUTIONS IN PLACE WITH CALL LIGHT IN REACH;WILL CONTINUE TO MONITOR
--- NOTE | 2017-08-13 23:30 | NUR ---
PT APPEARS TO BE SLEEPING IN SEMI FOWLERS POSITION;WOKE PT TO ADMINISTER SCHEDULED MEDICATION AND OBTAIN VS;RESPIRATIONS EVEN AND UNLABORED, SHALLOW ON 02;PT NEEDS TO BE FREQUENTLY REMINDED TO KEEP OXYGEN ON;TELE MONITOR IN PLACE;PT DENIES ANY NEEDS;FALL PRECAUTIONS IN PLACE WITH CALL LIGHT IN REACH;WILL CONTINUE TO MONITOR
[2017-08-14] VITALS (7 sets, daily range): BP systolic 102–134; BP diastolic 68–90
--- NOTE | 2017-08-14 05:50 | NUR ---
PT RESTING ON BEDSIDE COMPLAINING OF BACK PAIN;PT AND WRITTER DISCUSSED ORDERED PAIN MEDICATIONS;PT REFUSES PAIN MEDICATIONS;WARM PACKS PROVIDED AND PT RE-POSITIONED INTO THE RECLINER;TELE MONITOR IN PLACE;PT VOIDED 700CC OF DARK YELLOW URINE INTO URINAL;TELE MONITOR IN PLACE;RESPIRATIONS SHALLOW ON O2 @ 2L;SAFETY PRECAUTIONS REINFORCED;CALL LIGHT IN REACH;WILL CONTINUE TO MONITOR
--- NOTE | 2017-08-14 07:45 | NUR ---
ASSESSMENT IS COMPLETED: IV SITE IS FREE FROM REDNESS OR EDEMA. TELE MONITOR IN PLACE. PT IS SITTING UP IN THE CHAIR DOSES OFF ,
[2017-08-14 08:59] LABS: HEMATOCRIT 39.1 % (39.0-50.0); HEMOGLOBIN 11.8 g/dl (14.0-18.0); MEAN CORPUSCULAR HGB 28.4 pG CALC (26.0-32.0); MEAN CORPUSCULAR HGB CONC 30.2 g/L CALC (32.0-36.0); RED BLOOD COUNT 4.16 mill/uL (4.70-6.10); RED CELL DISTRI WIDTH 16.7 % (11.5-15.5)
[2017-08-14 09:06] LABS: CALCIUM 9.1 mg/dL (8.4-10.2); INTERNATIONAL NORMALIZED RATIO 1.1 RATIO (0.7-1.3); MAGNESIUM 1.8 mg/dL (1.6-2.3); POTASSIUM 4.9 mmol/l (3.5-5.1); PROTHROMBIN TIME 12.1 SECONDS (9.0-12.5)
--- NOTE | 2017-08-14 12:15 | NUR ---
PT IS SITTING IN THE CHAIR. NO DISTRESS NOTED. IV SITE IS FREE FROM REDNESS OR EDEMA. CONTIUE TO OSBERVE AND MONITOR.
--- NOTE | 2017-08-14 16:15 | NUR ---
PT IS SITTING UP IN THE CHAIR. NO DISTRESS NOTED. IV SITE IS FREE FROM REDNESS OR EDEMA. HAS HAD SOME WEEPING NOTED. CONTINUE TO OSBERVE AND MONITOR.
--- NOTE | 2017-08-14 16:16 | NUR ---
Pt was seen for medrounds. Medications were explained along with their purposes. Pt seemed tearful. Pt noted that he fell on the way to the bathroom earlier. Nursing staff was alerted. Pt had no concerns or questions. Handed the pt his phone upon request, thanked him, and wished him well.
--- NOTE | 2017-08-14 16:46 | NUR ---
SPOKE WITH PT RE: FALL. HE STATED" I FELL YESTERDAY,NOT TODAY". INFORMED THAT THE PHARMACIST STUDENT WAS UNDER THE IMPRESSION THAT HE FELL TODAY. STATED" I TOLD HIM THAT WAS YESTERDAY NOT TODAY".
--- NOTE | 2017-08-14 19:45 | NUR ---
PT RESTING IN BED WATCHING TV. PT IS ALERT AND ORIENTED X3. PERRLA. LUNGS ARE CLEAR AND DIMINISHED. RESP ARE EVEN AND UNLABORED. NO DISTRESS NOTED. HR REGULAR. PULSES PALPABLE THROUGHOUT. 4+ EDEMA TO BILAT LOWER EXTREMITIES. BS ACTIVE. PT VOIDING VIA URINAL. #20 RAC. NO REDNESS OR EDEMA NOTED. WILL CONTINUE TO MONITOR
--- NOTE | 2017-08-15 | NUR ---
PT RESTING IN BED WITH EYES CLOSED. RESP ARE EVEN AND UNLABORED. NO DISTRESS NOTED. WILL CONTINUE TO MONITOR
--- NOTE | 2017-08-15 04:05 | NUR ---
PT RESTING IN BED WITH EYES CLOSED. RESP ARE EVEN AND UNLABORED. NO DISTRESS NOTED. WILL CONTINUE TO MONITOR
[2017-08-15 05:00] VITALS: BP 117/82
--- NOTE | 2017-08-15 05:00 | NUR ---
LAB INTO DRAW AM LABS
--- NOTE | 2017-08-15 05:48 | NUR ---
PT REFUSED AM HEPARIN AND STATES HE IS AWAITING DISCHARGE
[2017-08-15 05:49] LABS: HEMATOCRIT 38.5 % (39.0-50.0); HEMOGLOBIN 11.7 g/dl (14.0-18.0); IMMATURE GRANULOCYTES 0.3 % (0.0-1.0); MEAN CELL VOLUME 92.5 fL CALC (80.0-100.0); MEAN CORPUSCULAR HGB 28.1 pG CALC (26.0-32.0); MEAN CORPUSCULAR HGB CONC 30.4 g/L CALC (32.0-36.0); NEUT# 3.35 thou/uL (1.82-7.42); RED BLOOD COUNT 4.16 mill/uL (4.70-6.10); RED CELL DISTRI WIDTH 16.7 % (11.5-15.5)
[2017-08-15 06:11] LABS: CALCIUM 9.1 mg/dL (8.4-10.2); CREATININE 2.1 mg/dL (0.7-1.3); MAGNESIUM 1.7 mg/dL (1.6-2.3); POTASSIUM 4.4 mmol/l (3.5-5.1)
--- NOTE | 2017-08-15 07:50 | NUR ---
ASSESSMENT IS COMPLETED: IV SITE IS FREE FROM REDNESS OR EDEMA. NO DISTRESS MOTED. CONTINUE TO OSEBRVE AND MONITOR.
[2017-08-15 11:36] VITALS: BP 109/74
--- NOTE | 2017-08-15 12:30 | NUR ---
PT IS SITTING UP ON THE SIDE OF THE BED WITH NO DISTRESS NTOED. CONTINUE TO OSBERVE AND MONITOR.
[2017-08-15 15:23] VITALS: BP 109/76
--- NOTE | 2017-08-15 16:30 | NUR ---
PT IS RELAXING IN BED WITH MO DISTRESS NOTED. IV SITE IS FREE FROM REDMESS OR EDEMA. CONTINUE TO OSEBRVE AND MONITOR.
[2017-08-15 19:22] VITALS: BP 117/80
--- NOTE | 2017-08-15 20:00 | NUR ---
PT SITTING UP ON SIDE OF BED. PT IS ALERT AND ORIENTED X3. PERRLA. RESP ARE EVEN AND UNLABORED. NO DISTRESS NOTED. LUNGS ARE CLEAR AND DIMINISHED IN BASES. TELE IN PLACE. HR REGULAR. PULSES PALPABLE THROUGHOUT. 4+ EDEMA TO BILAT LOWER EXTREMITIES. BS ACTIVE. PT REPORTS A NORMAL BM EARLIER TODAY. #20 RAC SALINE LOCKED. NO REDNESS OR EDEMA NOTED. REINFORCED STRICT I&O WITH PATIENT. WILL CONTINUE TO MONITOR
[2017-08-15 23:52] VITALS: BP 141/94
--- NOTE | 2017-08-16 | NUR ---
PT RESTING IN BED WITH EYES CLOSED. RESP ARE EVEN AND UNLABORED. NO DISTRESS NOTED WILL CONTINUE TO MONITOR
[2017-08-16 03:27] VITALS: BP 105/70
--- NOTE | 2017-08-16 04:00 | NUR ---
PT RESTING IN BED WITH EYES CLOSED. RESP ARE EVEN AND UNLABORED. NO DISTRESS NOTED. WILL CONTINUE TO MONITOR
[2017-08-16 07:53] LABS: HEMATOCRIT 38.7 % (39.0-50.0); HEMOGLOBIN 11.9 g/dl (14.0-18.0); IMMATURE GRANULOCYTES 0.3 % (0.0-1.0); MEAN CELL VOLUME 91.7 fL CALC (80.0-100.0); MEAN CORPUSCULAR HGB 28.2 pG CALC (26.0-32.0); MEAN CORPUSCULAR HGB CONC 30.7 g/L CALC (32.0-36.0); NEUT# 3.54 thou/uL (1.82-7.42); RED BLOOD COUNT 4.22 mill/uL (4.70-6.10); RED CELL DISTRI WIDTH 16.3 % (11.5-15.5)
[2017-08-16 08:04] LABS: CALCIUM 9.1 mg/dL (8.4-10.2); MAGNESIUM 1.4 mg/dL (1.6-2.3); POTASSIUM 4.4 mmol/l (3.5-5.1)
--- NOTE | 2017-08-16 08:10 | NUR ---
ASSESSEMEMT IS COMPLETED; NO DISTRESS NOTED. A LITTLE MORE AWAKE THIS AM. IV SITE IS FREE FROM REDNESS OR EDEMA. TELE MONITOR IN PLACE.
[2017-08-16 08:15] VITALS: BP 115/52
[2017-08-16 11:32] VITALS: BP 115/78
--- NOTE | 2017-08-16 12:45 | NUR ---
PT HAS BEEN SITTING UP ON THE SIDE OF THE BED, NO DISTRESS NOTED. IV SITE IS FREE FROM REDNESS OR EDEMA.
[2017-08-16] MEDS ORDERED: ZITHROMAX500 MG PO (14:04)
[2017-08-16] MEDS ORDERED: IPRATROPIU0.5 MG/3 M NEB (14:04)
[2017-08-16] MEDS ORDERED: NEBULIZER COMPRESSOR (14:04)
--- NOTE | 2017-08-16 14:28 | NUR ---
DISCHARGE INSTRUCTIONS GIVEN AND VERBALIZED UNDERSTANDING. IV SITE DISCONTINEUD CATHETER INTACT. NO REDNESS OR EDEMA.
== END 2017-08-16 14:40 | disposition home or self-care (01) | DRG 291 ==
LOC: ED 20:25 → ED-I 23:00 → ED 23:51 → MS2 23:52
PROVIDERS: Family Medicine; Nurse Practitioner Family; ADMIT Internal Medicine; ATTEND Internal Medicine
DX: I13.0 Hypertensive heart and chronic kidney disease with heart failure and stage 1 through stage 4 chronic kidney disease, or unspecified chronic kidney disease (principal); I50.23 Acute on chronic systolic (congestive) heart failure; J96.10 Chronic respiratory failure, unspecified whether with hypoxia or hypercapnia; J18.9 Pneumonia, unspecified organism; N17.9 Acute kidney failure, unspecified; R13.10 Dysphagia, unspecified; J44.0 Chronic obstructive pulmonary disease with (acute) lower respiratory infection; Z68.42 Body mass index [BMI] 45.0-49.9, adult; J44.1 Chronic obstructive pulmonary disease with (acute) exacerbation; J45.901 Unspecified asthma with (acute) exacerbation; I16.0 Hypertensive urgency; E66.01 Morbid (severe) obesity due to excess calories; E83.42 Hypomagnesemia; N18.2 Chronic kidney disease, stage 2 (mild); E78.5 Hyperlipidemia, unspecified; F17.210 Nicotine dependence, cigarettes, uncomplicated; G47.33 Obstructive sleep apnea (adult) (pediatric); I25.5 Ischemic cardiomyopathy; R10.84 Generalized abdominal pain; I25.118 Atherosclerotic heart disease of native coronary artery with other forms of angina pectoris; Z86.73 Personal history of transient ischemic attack (TIA), and cerebral infarction without residual deficits; Z95.810 Presence of automatic (implantable) cardiac defibrillator; Z95.5 Presence of coronary angioplasty implant and graft; I25.2 Old myocardial infarction

== ENCOUNTER 2017-08-27 21:22 | Observation (INO) | payer SELFPAY ==
[~2017-08-27] VITALS: Ht 170.2 cm; Wt 144.0 kg
[~2017-08-27 21:22] MED LIST changes: +IPRATROPIU0.5 MG/3 M NEB; +NEBULIZER COMPRESSOR; +ZITHROMAX500 MG PO
--- NOTE | 2017-08-27 21:22 | NUR ---
PT TO ROOM 13 BY EMS FOR N/V/D FOR 2 DAYS WITH WEAKNESS
--- NOTE | 2017-08-27 21:54 | NUR ---
BREATHING TREATMENT GIVEN. BREATING TECH. FOR GOOD DEPOSITION TO THE LUNGS.
[2017-08-27 22:11] LABS: HEMATOCRIT 36.6 % (39.0-50.0); HEMOGLOBIN 11.2 g/dl (14.0-18.0); IMMATURE GRANULOCYTES 0.3 % (0.0-1.0); MEAN CORPUSCULAR HGB 28.1 pG CALC (26.0-32.0); MEAN CORPUSCULAR HGB CONC 30.6 g/L CALC (32.0-36.0); NEUT# 4.06 thou/uL (1.82-7.42); RED BLOOD COUNT 3.98 mill/uL (4.70-6.10); RED CELL DISTRI WIDTH 17.7 % (11.5-15.5)
--- NOTE | 2017-08-27 22:28 | NUR ---
pt medicated and 2 labs redrawn.
[2017-08-27 22:35] LABS: INFLUENZA A NONE DETECTED (NONE DETECT); INFLUENZA B NONE DETECTED (NONE DETECT)
[2017-08-27 22:44] LABS: ALBUMIN 3.7 g/dL (3.2-5.0); CREATININE 1.8 mg/dL (0.7-1.3); POTASSIUM 4.8 mmol/l (3.5-5.1); TOTAL PROTEIN 6.4 g/dL (6.3-8.2)
[2017-08-27] MEDS ORDERED: ZOFRAN4 MG PO (23:27)
[2017-08-27] MEDS ORDERED: AMOXICILLIN500 MG PO (23:27)
--- NOTE | 2017-08-27 23:46 | NUR ---
Pt continues to rest comfortably at this time. Advised of possible admission.
--- NOTE | 2017-08-28 00:11 | NUR ---
report called to Starr HEREDIA. Pt going to room 268
--- NOTE | 2017-08-28 00:17 | NUR ---
pt transported by cot to room 268.
[2017-08-28 00:25] VITALS: BP 141/81
--- NOTE | 2017-08-28 00:25 | NUR ---
PT ADMITTED TO MS2 VIA WHEELCHAIR ACCOMPANIED BY ER NURSE CARLEY. PT ALERT AND ORIENTED X3. FLAT AFFECT, STATES HE WAS RECENTLY DISCHARGED FROM [facility]. ADMISSION ASSESSMENT COMPLETED, SKIN INTACT. EDEMA NOTED TO BLE, INSTRUCTED ON ELEVATING EXTREMITIES. CALL LIGHT IN REACH,CONTINUE TO MONITOR.
--- NOTE | 2017-08-28 04:06 | NUR ---
PT SITTING ON SIDE OF BED, NO SIGNS OF DISTRESS NOTED, RESP EVEN AND UNLABORED. VOICES NO NEEDS OR COMPLAINTS AT THIS TIME. CALL LIGHT IN REACH,CONTINUE TO MONITOR.
[2017-08-28 04:43] VITALS: BP 126/90
--- NOTE | 2017-08-28 07:00 | NUR ---
RECEIVED BEDSIDE REPORT FROM STEPHANY DOHERTY. SITTING ON EDGE OF BED. RESPS EVEN AND UNLABORED ON O2 VIA NC, TELE MONITOR IN PLACE. DENIES PAIN OR DISCOMFORT, SAFETY PRECAUTIONS REINFORCED. BED IN LOWEST POSITION WITH WHEELS LOCKED. CALL LIGHT WITHIN REACH. ENCOURAGED PT TO CALL FOR ANY NEEDS.
[2017-08-28 07:55] VITALS: BP 155/97
[2017-08-28 11:36] VITALS: BP 147/96
--- NOTE | 2017-08-28 12:45 | NUR ---
SITTING ON EDGE OF BED. RESPS EVEN AND UNLABORED ON O2 VIA NC, TELE MONITOR IN PLACE. DR CRAMER AT BEDSIDE, NEW ORDERS RECEIVED. CALL LIGHT WITHIN REACH. WILL CONTINUE TO MONITOR.
--- NOTE | 2017-08-28 16:27 | NUR ---
Patient denied any side effects pertaining to medication. c
[2017-08-28 16:34] VITALS: BP 136/83
[2017-08-28] MEDS ORDERED: AUGMENTIN875TAB PO (17:13)
[2017-08-28] MEDS ORDERED: FLORASTOR250 M1 PO (17:13)
[2017-08-28] MEDS ORDERED: MEDDOSEPAK PO (17:13)
--- NOTE | 2017-08-28 18:30 | NUR ---
Discharge instructions given. Patient verbalizes understanding of same. Discharged in stable condition via Wheelchair to Home with family. All belongings sent with pt.
== END 2017-08-28 18:25 | disposition home or self-care (01) | DRG 291 ==
LOC: ED 21:22 → ED-I 23:10 → ED 23:41 → MS2 23:42
PROVIDERS: Emergency Medicine; ADMIT Internal Medicine; ATTEND Internal Medicine
DX: I13.0 Hypertensive heart and chronic kidney disease with heart failure and stage 1 through stage 4 chronic kidney disease, or unspecified chronic kidney disease (principal); I50.23 Acute on chronic systolic (congestive) heart failure; Z99.81 Dependence on supplemental oxygen; E66.01 Morbid (severe) obesity due to excess calories; J44.1 Chronic obstructive pulmonary disease with (acute) exacerbation; Z68.42 Body mass index [BMI] 45.0-49.9, adult; J02.0 Streptococcal pharyngitis; I25.10 Atherosclerotic heart disease of native coronary artery without angina pectoris; N18.2 Chronic kidney disease, stage 2 (mild); E78.5 Hyperlipidemia, unspecified; Z95.810 Presence of automatic (implantable) cardiac defibrillator; Z86.73 Personal history of transient ischemic attack (TIA), and cerebral infarction without residual deficits; Z95.5 Presence of coronary angioplasty implant and graft; I25.5 Ischemic cardiomyopathy; F17.210 Nicotine dependence, cigarettes, uncomplicated; D64.9 Anemia, unspecified; R09.02 Hypoxemia; R06.89 Other abnormalities of breathing; Z91.14 Patient's other noncompliance with medication regimen
CPT/HCPCS: G0378

== ENCOUNTER 2017-09-09 20:59 | Observation (INO) | payer SELFPAY ==
[~2017-09-09] VITALS: Ht 170.2 cm; Wt 142.0 kg
[~2017-09-09 20:59] MED LIST changes: +FLORASTOR250 M1 PO; +ZOFRAN4 MG PO
[2017-09-09 21:45] LABS: HEMATOCRIT 36.5 % (39.0-50.0); HEMOGLOBIN 11.2 g/dl (14.0-18.0); IMMATURE GRANULOCYTES 0.4 % (0.0-1.0); MEAN CELL VOLUME 89.5 fL CALC (80.0-100.0); MEAN CORPUSCULAR HGB 27.5 pG CALC (26.0-32.0); MEAN CORPUSCULAR HGB CONC 30.7 g/L CALC (32.0-36.0); NEUT# 6.05 thou/uL (1.82-7.42); RED BLOOD COUNT 4.08 mill/uL (4.70-6.10); RED CELL DISTRI WIDTH 18.7 % (11.5-15.5)
[2017-09-09 22:37] LABS: ANION GAP 17 (6-22 (CALC)); BUN 15 mg/dL (9-20); BUN/CREATININE RATIO 12 (12-20 (CALC)); CARBON DIOXIDE 27 mmol/l (22-30); CHLORIDE 104 mmol/l (95-108); CREATININE 1.3 mg/dL (0.7-1.3); GFR 60 ML/MIN (>=60 (CALC)); GFR FOR AFR.AMER. > 60 ML/MIN (>=60 (CALC)); POTASSIUM 3.7 mmol/l (3.5-5.1); SODIUM 144 mmol/l (137-146)
[2017-09-10 00:01] LABS: URINE BILIRUBIN - DIPSTICK NEGATIVE (NEGATIVE); URINE BLOOD DIPSTICK NEGATIVE (NEGATIVE); URINE CLARITY SL CLOUDY; URINE COLOR YELLOW; URINE GLUCOSE - DIPSTICK NEGATIVE (NEGATIVE); URINE KETONE NEGATIVE (NEGATIVE); URINE LEUK ESTERASE NEGATIVE (NEGATIVE); URINE NITRITE - DIPSTICK NEGATIVE (Negative); URINE PROTEIN - DIPSTICK 100 mg/dL (NEG-TRACE)
[2017-09-10 00:08] LABS: URINE BACTERIA FEW hpf; URINE MUCUS MODERATE hpf (NONE-FEW); URINE RBC 0-2 RBC/hpf (0-5); URINE SQUAMOUS EPITHELIAL CELL MODERATE EPI/hpf (0-FEW)
[2017-09-10 00:30] VITALS: BP 131/96
[2017-09-10 05:00] VITALS: BP 90/65
[2017-09-10 07:25] VITALS: BP 97/62
[2017-09-10 11:30] VITALS: BP 90/58
[2017-09-10 15:11] VITALS: BP 90/60
[2017-09-10 19:00] VITALS: BP 97/72
[2017-09-11 00:12] VITALS: BP 110/66
[2017-09-11 04:58] VITALS: BP 102/72
[2017-09-11 05:30] LABS: HEMATOCRIT 35.3 % (39.0-50.0); HEMOGLOBIN 10.7 g/dl (14.0-18.0); IMMATURE GRANULOCYTES 0.3 % (0.0-1.0); MEAN CELL VOLUME 91.5 fL CALC (80.0-100.0); MEAN CORPUSCULAR HGB 27.7 pG CALC (26.0-32.0); MEAN CORPUSCULAR HGB CONC 30.3 g/L CALC (32.0-36.0); NEUT# 4.81 thou/uL (1.82-7.42); RED BLOOD COUNT 3.86 mill/uL (4.70-6.10); RED CELL DISTRI WIDTH 18.6 % (11.5-15.5)
[2017-09-11 05:41] LABS: CREATININE 1.7 mg/dL (0.7-1.3); MAGNESIUM 1.4 mg/dL (1.6-2.3); POTASSIUM 4.7 mmol/l (3.5-5.1)
[2017-09-11 09:16] VITALS: BP 102/68
[2017-09-11 11:40] VITALS: BP 126/71
[2017-09-11 14:51] VITALS: BP 118/79
[2017-09-11] MEDS ORDERED: LOSARTAN POT50 MG PO (17:29)
[2017-09-11] MEDS ORDERED: LASIX 40 MG TAB40 MG PO (17:29)
== END 2017-09-11 19:30 | disposition home or self-care (01) | DRG 304 ==
LOC: ED 20:59 → ED-I 23:05 → ED 23:19 → MS2 23:20
PROVIDERS: Family Medicine; Nurse Practitioner Family; ADMIT Internal Medicine; ATTEND Internal Medicine
DX: I16.0 Hypertensive urgency (principal); I50.43 Acute on chronic combined systolic (congestive) and diastolic (congestive) heart failure; E66.01 Morbid (severe) obesity due to excess calories; I42.9 Cardiomyopathy, unspecified; Z68.42 Body mass index [BMI] 45.0-49.9, adult; I13.0 Hypertensive heart and chronic kidney disease with heart failure and stage 1 through stage 4 chronic kidney disease, or unspecified chronic kidney disease; N18.2 Chronic kidney disease, stage 2 (mild); E78.5 Hyperlipidemia, unspecified; J44.9 Chronic obstructive pulmonary disease, unspecified; G47.33 Obstructive sleep apnea (adult) (pediatric); F17.200 Nicotine dependence, unspecified, uncomplicated; Z95.810 Presence of automatic (implantable) cardiac defibrillator; Z86.73 Personal history of transient ischemic attack (TIA), and cerebral infarction without residual deficits; Z91.14 Patient's other noncompliance with medication regimen; Z95.5 Presence of coronary angioplasty implant and graft; Z82.49 Family history of ischemic heart disease and other diseases of the circulatory system
CPT/HCPCS: G0378; J1650; J3475

== ENCOUNTER 2017-09-18 04:54 | Emergency (ER) | payer SELFPAY ==
[~2017-09-18] VITALS: Ht 170.2 cm; Wt 145.4 kg
[~2017-09-18 04:54] MED LIST changes: +LOSARTAN POT50 MG PO
[2017-09-18 06:45] VITALS: BP 146/85
== END 2017-09-18 06:58 | disposition home or self-care (01) | DRG 305 ==
LOC: ED 04:54
DX: I10 Essential (primary) hypertension (principal); S40.012A Contusion of left shoulder, initial encounter; W18.30XA Fall on same level, unspecified, initial encounter; Y93.01 Activity, walking, marching and hiking; Y92.002 Bathroom of unspecified non-institutional (private) residence as the place of occurrence of the external cause; Z95.810 Presence of automatic (implantable) cardiac defibrillator

== ENCOUNTER 2017-09-20 20:31 | Emergency (ER) | payer SELFPAY ==
[~2017-09-20] VITALS: Ht 170.2 cm; Wt 142.2 kg
--- NOTE | 2017-09-20 21:26 | NUR ---
BREATHING TREATMENT GIVEN. BREATHING TECH. FOR GOOD DEPOSITION TO THE LUNGS AND SOB.
[2017-09-20 21:32] LABS: HEMOGLOBIN 11.8 g/dl (14.0-18.0); IMMATURE GRANULOCYTES 0.1 % (0.0-1.0); MEAN CELL VOLUME 90.1 fL CALC (80.0-100.0); MEAN CORPUSCULAR HGB 27.3 pG CALC (26.0-32.0); MEAN CORPUSCULAR HGB CONC 30.3 g/L CALC (32.0-36.0); NEUT# 4.4 thou/uL (1.82-7.42); RED BLOOD COUNT 4.33 mill/uL (4.70-6.10); RED CELL DISTRI WIDTH 18.9 % (11.5-15.5)
[2017-09-20 21:58] LABS: ALBUMIN 4.2 g/dL (3.2-5.0); ALKALINE PHOSPHATASE 116 u/l (38-126); ANION GAP 20 (6-22 (CALC)); BILIRUBIN, TOTAL 1.1 mg/dL (0.0-1.4); BUN 17 mg/dL (9-20); BUN/CREATININE RATIO 11 (12-20 (CALC)); CARBON DIOXIDE 28 mmol/l (22-30); CHLORIDE 101 mmol/l (95-108); CREATININE 1.5 mg/dL (0.7-1.3); GFR 51 ML/MIN (>=60 (CALC)); GFR FOR AFR.AMER. > 60 ML/MIN (>=60 (CALC)); POTASSIUM 3.9 mmol/l (3.5-5.1); SGOT/AST 37 u/l (17-59); SGPT/ALT 33 u/l (21-72); SODIUM 145 mmol/l (137-146); TOTAL PROTEIN 7.3 g/dL (6.3-8.2)
[2017-09-20 22:09] LABS: MYOGLOBIN 74 ng/mL (0 - 121)
[2017-09-20 23:13] LABS: URINE BLOOD DIPSTICK TRACE-INTACT (NEGATIVE); URINE COLOR YELLOW; URINE GLUCOSE - DIPSTICK NEGATIVE (NEGATIVE); URINE KETONE TRACE mg/dL (NEGATIVE); URINE LEUK ESTERASE NEGATIVE (NEGATIVE); URINE NITRITE - DIPSTICK NEGATIVE (Negative); URINE PROTEIN - DIPSTICK >=300 mg/dL (NEG-TRACE); URINE SPECIFIC GRAVITY 1.025
[2017-09-20 23:17] LABS: URINE CLARITY SL CLOUDY
[2017-09-20 23:18] LABS: BARBITURATES NEGATIVE (NEGATIVE); COCAINE NEGATIVE (NEGATIVE); METHADONE NEGATIVE (NEGATIVE); OXCYCODONE NEGATIVE (NEGATIVE); TETRAHYDROCANNABIONOL NEGATIVE (NEGATIVE); TRICYLIC ANTIDEPRESSANTS NEGATIVE (NEGATIVE)
[2017-09-20 23:19] LABS: URINE BILIRUBIN - DIPSTICK NEGATIVE (NEGATIVE)
[2017-09-20 23:20] LABS: URINE HYALINE CAST FEW lpf (NONE-RARE); URINE MUCUS MODERATE hpf (NONE-FEW); URINE RBC 0-2 RBC/hpf (0-5); URINE SQUAMOUS EPITHELIAL CELL MODERATE EPI/hpf (0-FEW)
[2017-09-20] MEDS ORDERED: CIPROFLOXACN500 MG PO (23:29)
[2017-09-21 01:00] VITALS: BP 136/85
== END 2017-09-21 01:00 | disposition home or self-care (01) | DRG 191 ==
LOC: ED 20:31
PROVIDERS: Emergency Medicine
DX: J44.1 Chronic obstructive pulmonary disease with (acute) exacerbation (principal); N39.0 Urinary tract infection, site not specified; I11.0 Hypertensive heart disease with heart failure; I50.9 Heart failure, unspecified; E78.00 Pure hypercholesterolemia, unspecified; Z95.5 Presence of coronary angioplasty implant and graft; Z95.810 Presence of automatic (implantable) cardiac defibrillator

== ENCOUNTER 2017-09-26 00:04 | Observation (INO) | payer SELFPAY ==
[~2017-09-26] VITALS: Ht 170.2 cm; Wt 140.0 kg
[2017-09-26] MEDS ORDERED: MECLIZINE25 MG PO (00:57)
[2017-09-26] MEDS ORDERED: GABAPENTIN300 M2 PO (00:58)
[2017-09-26 01:00] LABS: HEMATOCRIT 37.2 % (39.0-50.0); HEMOGLOBIN 11.4 g/dl (14.0-18.0); IMMATURE GRANULOCYTES 0.4 % (0.0-1.0); MEAN CELL VOLUME 88.2 fL CALC (80.0-100.0); MEAN CORPUSCULAR HGB CONC 30.6 g/L CALC (32.0-36.0); NEUT# 5.29 thou/uL (1.82-7.42); RED BLOOD COUNT 4.22 mill/uL (4.70-6.10); RED CELL DISTRI WIDTH 18.8 % (11.5-15.5)
[2017-09-26 01:00] LABS: URINE BLOOD DIPSTICK TRACE-INTACT (NEGATIVE); URINE COLOR YELLOW; URINE GLUCOSE - DIPSTICK NEGATIVE (NEGATIVE); URINE KETONE NEGATIVE (NEGATIVE); URINE LEUK ESTERASE NEGATIVE (NEGATIVE); URINE NITRITE - DIPSTICK NEGATIVE (Negative); URINE PH 5.5 (4.5-8.0); URINE PROTEIN - DIPSTICK >=300 mg/dL (NEG-TRACE); URINE SPECIFIC GRAVITY 1.025
[2017-09-26 01:02] LABS: URINE CLARITY CLEAR
[2017-09-26 01:05] LABS: URINE BILIRUBIN - DIPSTICK NEGATIVE (NEGATIVE)
[2017-09-26 01:13] LABS: URINE BACTERIA RARE hpf; URINE RBC 0-2 RBC/hpf (0-5); URINE SQUAMOUS EPITHELIAL CELL RARE EPI/hpf (0-FEW); URINE WBC 0-2 WBC/hpf (0-5)
[2017-09-26 01:15] LABS: ALBUMIN 4.1 g/dL (3.2-5.0); ALKALINE PHOSPHATASE 94 u/l (38-126); ANION GAP 19 (6-22 (CALC)); BILIRUBIN, TOTAL 1.2 mg/dL (0.0-1.4); BUN 23 mg/dL (9-20); BUN/CREATININE RATIO 16 (12-20 (CALC)); CARBON DIOXIDE 30 mmol/l (22-30); CHLORIDE 100 mmol/l (95-108); CREATININE 1.5 mg/dL (0.7-1.3); GFR 51 ML/MIN (>=60 (CALC)); GFR FOR AFR.AMER. > 60 ML/MIN (>=60 (CALC)); POTASSIUM 3.8 mmol/l (3.5-5.1); SGOT/AST 33 u/l (17-59); SGPT/ALT 32 u/l (21-72); SODIUM 146 mmol/l (137-146)
[2017-09-26 01:17] LABS: INTERNATIONAL NORMALIZED RATIO 1.1 RATIO (0.7-1.3); PROTHROMBIN TIME 12.7 SECONDS (9.0-12.5)
[2017-09-26 04:55] VITALS: BP 163/116
[2017-09-26 08:05] VITALS: BP 154/94
[2017-09-26 11:08] VITALS: BP 141/73
[2017-09-26 15:16] VITALS: BP 121/80
[2017-09-26 23:25] VITALS: BP 134/87
[2017-09-27 04:06] VITALS: BP 137/94
[2017-09-27 05:49] LABS: HEMATOCRIT 35.6 % (39.0-50.0); HEMOGLOBIN 10.7 g/dl (14.0-18.0); IMMATURE GRANULOCYTES 0.5 % (0.0-1.0); MEAN CELL VOLUME 90.4 fL CALC (80.0-100.0); MEAN CORPUSCULAR HGB 27.2 pG CALC (26.0-32.0); MEAN CORPUSCULAR HGB CONC 30.1 g/L CALC (32.0-36.0); NEUT# 9.36 thou/uL (1.82-7.42); RED BLOOD COUNT 3.94 mill/uL (4.70-6.10); RED CELL DISTRI WIDTH 18.4 % (11.5-15.5)
[2017-09-27 06:06] LABS: ANION GAP 17 (6-22 (CALC)); BUN 32 mg/dL (9-20); BUN/CREATININE RATIO 21 (12-20 (CALC)); CARBON DIOXIDE 31 mmol/l (22-30); CHLORIDE 99 mmol/l (95-108); CREATININE 1.5 mg/dL (0.7-1.3); GFR 51 ML/MIN (>=60 (CALC)); GFR FOR AFR.AMER. > 60 ML/MIN (>=60 (CALC)); MAGNESIUM 1.4 mg/dL (1.6-2.3); SODIUM 142 mmol/l (137-146)
[2017-09-27 09:18] VITALS: BP 133/96
[2017-09-27 11:18] VITALS: BP 129/75
[2017-09-27] MEDS ORDERED: IPRATROPIU0.5 MG/3 M NEB (14:24)
[2017-09-27] MEDS ORDERED: CETIRIZINE10 MG PO (14:24)
[2017-09-27] MEDS ORDERED: MEDDOSEPAK PO (14:24)
[2017-09-27] MEDS ORDERED: LOSARTAN POT50 MG PO (14:24)
[2017-09-27] MEDS ORDERED: DOXYCYCL HYC100 MG PO (14:24)
[2017-09-27] MEDS ORDERED: NEBULIZER COMPRESSOR (14:24)
[2017-09-27] MEDS ORDERED: PLAVIX75 MG PO (14:24)
[2017-09-27] MEDS ORDERED: GABAPENTIN300 M2 PO (14:24)
[2017-09-27] MEDS ORDERED: CARVEDILOL25 MG PO (14:24)
[2017-09-27] MEDS ORDERED: PANTOPRAZOLE SO40 M1 PO (14:24)
[2017-09-27] MEDS ORDERED: ATORVASTATIN CA40 MG PO (14:24)
[2017-09-27 14:46] VITALS: BP 135/89
[2017-09-27 20:37] VITALS: BP 131/93
[2017-09-28 00:16] VITALS: BP 137/89
[2017-09-28 05:00] VITALS: BP 133/78
[2017-09-28 08:36] VITALS: BP 121/66
[2017-09-28 09:27] LABS: HEMATOCRIT 37.4 % (39.0-50.0); HEMOGLOBIN 11.1 g/dl (14.0-18.0); IMMATURE GRANULOCYTES 0.4 % (0.0-1.0); MEAN CELL VOLUME 91.7 fL CALC (80.0-100.0); MEAN CORPUSCULAR HGB 27.2 pG CALC (26.0-32.0); MEAN CORPUSCULAR HGB CONC 29.7 g/L CALC (32.0-36.0); NEUT# 11.02 thou/uL (1.82-7.42); RED BLOOD COUNT 4.08 mill/uL (4.70-6.10); RED CELL DISTRI WIDTH 18.5 % (11.5-15.5)
[2017-09-28 09:46] LABS: CREATININE 1.6 mg/dL (0.7-1.3); POTASSIUM 4.6 mmol/l (3.5-5.1)
[2017-09-28 16:19] VITALS: BP 107/76
== END 2017-09-28 16:37 | disposition home or self-care (01) | DRG 291 ==
LOC: ED 00:04 → ED-I 01:30 → ED 04:16 → MS2 04:17
PROVIDERS: Emergency Medicine; Nurse Practitioner Family; ADMIT Internal Medicine; ATTEND Internal Medicine
DX: I13.0 Hypertensive heart and chronic kidney disease with heart failure and stage 1 through stage 4 chronic kidney disease, or unspecified chronic kidney disease (principal); I50.23 Acute on chronic systolic (congestive) heart failure; I16.0 Hypertensive urgency; N17.9 Acute kidney failure, unspecified; I42.8 Other cardiomyopathies; E66.01 Morbid (severe) obesity due to excess calories; J44.0 Chronic obstructive pulmonary disease with (acute) lower respiratory infection; Z68.42 Body mass index [BMI] 45.0-49.9, adult; J20.9 Acute bronchitis, unspecified; N18.2 Chronic kidney disease, stage 2 (mild); I25.5 Ischemic cardiomyopathy; G47.33 Obstructive sleep apnea (adult) (pediatric); E78.5 Hyperlipidemia, unspecified; Z91.14 Patient's other noncompliance with medication regimen; Z95.5 Presence of coronary angioplasty implant and graft; Z86.73 Personal history of transient ischemic attack (TIA), and cerebral infarction without residual deficits; Z95.810 Presence of automatic (implantable) cardiac defibrillator
CPT/HCPCS: G0378

== ENCOUNTER 2017-10-29 22:00 | Observation (INO) | payer OTHER ==
[~2017-10-29] VITALS: Ht 170.2 cm; Wt 140.2 kg
[~2017-10-29 22:00] MED LIST changes: +ATORVASTATIN CA40 MG PO; +DOXYCYCL HYC100 MG PO; +GABAPENTIN300 M2 PO; +MECLIZINE25 MG PO
[2017-10-29 22:27] LABS: HEMATOCRIT 34.5 % (39.0-50.0); HEMOGLOBIN 10.5 g/dl (14.0-18.0); IMMATURE GRANULOCYTES 0.4 % (0.0-1.0); MEAN CORPUSCULAR HGB 26.8 pG CALC (26.0-32.0); MEAN CORPUSCULAR HGB CONC 30.4 g/L CALC (32.0-36.0); NEUT# 5.03 thou/uL (1.82-7.42); RED BLOOD COUNT 3.92 mill/uL (4.70-6.10); RED CELL DISTRI WIDTH 19.8 % (11.5-15.5)
[2017-10-29 22:39] LABS: ALBUMIN 3.8 g/dL (3.2-5.0); ALKALINE PHOSPHATASE 103 u/l (38-126); ANION GAP 16 (6-22 (CALC)); BILIRUBIN, TOTAL 1.3 mg/dL (0.0-1.4); BUN 20 mg/dL (9-20); BUN/CREATININE RATIO 14 (12-20 (CALC)); CARBON DIOXIDE 32 mmol/l (22-30); CHLORIDE 101 mmol/l (95-108); CREATININE 1.4 mg/dL (0.7-1.3); GFR 55 ML/MIN (>=60 (CALC)); GFR FOR AFR.AMER. > 60 ML/MIN (>=60 (CALC)); LIPASE 63 u/l (23-300); SGOT/AST 31 u/l (17-59); SGPT/ALT 36 u/l (21-72); SODIUM 145 mmol/l (137-146); TOTAL PROTEIN 6.9 g/dL (6.3-8.2)
[2017-10-29 22:51] LABS: MYOGLOBIN 70 ng/mL (0 - 121)
[2017-10-29 23:00] LABS: POTASSIUM 3.5 mmol/l (3.5-5.1)
[2017-10-29 23:02] LABS: ACT PARTIAL THROMBO TIME 24.5 SECONDS (20.0-32.5); INTERNATIONAL NORMALIZED RATIO 1.1 RATIO (0.7-1.3); PROTHROMBIN TIME 12.5 SECONDS (9.0-12.5)
[2017-10-30 01:15] VITALS: BP 122/88
[2017-10-30 01:39] LABS: URINE BILIRUBIN - DIPSTICK NEGATIVE (NEGATIVE); URINE BLOOD DIPSTICK NEGATIVE (NEGATIVE); URINE COLOR YELLOW; URINE GLUCOSE - DIPSTICK NEGATIVE (NEGATIVE); URINE KETONE NEGATIVE (NEGATIVE); URINE LEUK ESTERASE NEGATIVE (NEGATIVE); URINE NITRITE - DIPSTICK NEGATIVE (Negative); URINE PROTEIN - DIPSTICK 100 mg/dL (NEG-TRACE); URINE UROBILINOGEN - DIPSTICK 0.2 E.U./dL (0.2)
[2017-10-30 01:50] LABS: BARBITURATES NEGATIVE (NEGATIVE); COCAINE NEGATIVE (NEGATIVE); METHADONE NEGATIVE (NEGATIVE); OXCYCODONE NEGATIVE (NEGATIVE); TETRAHYDROCANNABIONOL NEGATIVE (NEGATIVE); TRICYLIC ANTIDEPRESSANTS NEGATIVE (NEGATIVE)
[2017-10-30 01:51] LABS: URINE CLARITY CLEAR
[2017-10-30 02:02] LABS: URINE BACTERIA FEW hpf; URINE SQUAMOUS EPITHELIAL CELL RARE EPI/hpf (0-FEW)
[2017-10-30 05:13] VITALS: BP 128/73
[2017-10-30 08:39] LABS: HEMATOCRIT 35.1 % (39.0-50.0); HEMOGLOBIN 10.5 g/dl (14.0-18.0); MEAN CORPUSCULAR HGB 26.9 pG CALC (26.0-32.0); MEAN CORPUSCULAR HGB CONC 29.9 g/L CALC (32.0-36.0); RED BLOOD COUNT 3.9 mill/uL (4.70-6.10); RED CELL DISTRI WIDTH 20.1 % (11.5-15.5)
[2017-10-30 09:22] LABS: ANION GAP 16 (6-22 (CALC)); BUN 22 mg/dL (9-20); BUN/CREATININE RATIO 16 (12-20 (CALC)); CARBON DIOXIDE 31 mmol/l (22-30); CHLORIDE 101 mmol/l (95-108); CREATININE 1.4 mg/dL (0.7-1.3); GFR 55 ML/MIN (>=60 (CALC)); GFR FOR AFR.AMER. > 60 ML/MIN (>=60 (CALC)); POTASSIUM 3.8 mmol/l (3.5-5.1); SODIUM 143 mmol/l (137-146)
[2017-10-30 11:13] VITALS: BP 145/100
[2017-10-30 15:51] VITALS: BP 140/99
[2017-10-30 19:39] VITALS: BP 116/83
[2017-10-30 23:05] VITALS: BP 145/95
[2017-10-31 04:05] VITALS: BP 143/93
[2017-10-31 05:46] LABS: HEMATOCRIT 36.5 % (39.0-50.0); HEMOGLOBIN 10.9 g/dl (14.0-18.0); MEAN CELL VOLUME 90.6 fL CALC (80.0-100.0); MEAN CORPUSCULAR HGB CONC 29.9 g/L CALC (32.0-36.0); RED BLOOD COUNT 4.03 mill/uL (4.70-6.10); RED CELL DISTRI WIDTH 19.9 % (11.5-15.5)
[2017-10-31 05:49] LABS: ANION GAP 17 (6-22 (CALC)); BUN 25 mg/dL (9-20); BUN/CREATININE RATIO 18 (12-20 (CALC)); CARBON DIOXIDE 33 mmol/l (22-30); CHLORIDE 99 mmol/l (95-108); CREATININE 1.4 mg/dL (0.7-1.3); GFR 55 ML/MIN (>=60 (CALC)); GFR FOR AFR.AMER. > 60 ML/MIN (>=60 (CALC)); POTASSIUM 4.4 mmol/l (3.5-5.1); SODIUM 145 mmol/l (137-146)
[2017-10-31 05:51] LABS: MAGNESIUM 1.9 mg/dL (1.6-2.3)
[2017-10-31] MEDS ORDERED: LASIX 40 MG TAB40 MG PO (10:50)
[2017-10-31] MEDS ORDERED: ALDACTONE25 MG PO (10:51)
[2017-10-31] MEDS ORDERED: TRAMADOL HCL50 MG PO (10:51)
[2017-10-31 12:11] VITALS: BP 158/83
== END 2017-10-31 14:20 | disposition home health service (06) | DRG 313 ==
LOC: ED 22:00 → ED-I 10-30 → ED 10-30 00:22 → MS2 10-30 00:23
PROVIDERS: Emergency Medicine; Nurse Practitioner Family; ADMIT Internal Medicine; ATTEND Internal Medicine
DX: R07.9 Chest pain, unspecified (principal); I25.10 Atherosclerotic heart disease of native coronary artery without angina pectoris; I50.23 Acute on chronic systolic (congestive) heart failure; E66.01 Morbid (severe) obesity due to excess calories; E83.42 Hypomagnesemia; I13.0 Hypertensive heart and chronic kidney disease with heart failure and stage 1 through stage 4 chronic kidney disease, or unspecified chronic kidney disease; Z68.42 Body mass index [BMI] 45.0-49.9, adult; N18.3 Chronic kidney disease, stage 3 (moderate); J44.9 Chronic obstructive pulmonary disease, unspecified; I25.5 Ischemic cardiomyopathy; G47.33 Obstructive sleep apnea (adult) (pediatric); E78.5 Hyperlipidemia, unspecified; Z95.5 Presence of coronary angioplasty implant and graft; Z86.73 Personal history of transient ischemic attack (TIA), and cerebral infarction without residual deficits; Z95.810 Presence of automatic (implantable) cardiac defibrillator; Z82.49 Family history of ischemic heart disease and other diseases of the circulatory system
CPT/HCPCS: G0378; J3475

== ENCOUNTER 2017-11-30 23:26 | Emergency (ER) | payer OTHER ==
[~2017-11-30] VITALS: Ht 170.2 cm; Wt 119.6 kg
[~2017-11-30 23:26] MED LIST changes: +ALDACTONE25 MG PO; +TRAMADOL HCL50 MG PO
[2017-11-30] MEDS ORDERED: TRAMADOL HCL50 MG PO (23:58)
[2017-12-01 01:06] VITALS: BP 161/95
== END 2017-12-01 01:06 | disposition home or self-care (01) | DRG 563 ==
LOC: ED 23:26
DX: S39.012A Strain of muscle, fascia and tendon of lower back, initial encounter (principal); I10 Essential (primary) hypertension; Z95.0 Presence of cardiac pacemaker; X58.XXXA Exposure to other specified factors, initial encounter

== ENCOUNTER 2017-12-28 20:52 | Emergency (ER) | payer OTHER ==
[~2017-12-28] VITALS: Ht 170.2 cm; Wt 122.2 kg
[2017-12-28] MEDS ORDERED: GABAPENTIN300 M2 PO (21:05)
[2017-12-28] MEDS ORDERED: TRAMADOL HCL50 MG PO (21:15)
[2017-12-28] MEDS ORDERED: VOLTAREN - GENE75 MG PO (21:15)
[2017-12-28] MEDS ORDERED: FLEXERIL5 M1 PO (21:15)
[2017-12-28 21:25] VITALS: BP 129/83
== END 2017-12-28 21:33 | disposition home or self-care (01) | DRG 552 ==
LOC: ED 20:52
DX: S16.1XXA Strain of muscle, fascia and tendon at neck level, initial encounter (principal)

== ENCOUNTER 2018-01-26 20:19 | Emergency (ER) | payer OTHER ==
[~2018-01-26] VITALS: Ht 170.2 cm; Wt 126.6 kg
[~2018-01-26 20:19] MED LIST changes: +FLEXERIL5 M1 PO; +VOLTAREN - GENE75 MG PO
[2018-01-26] MEDS ORDERED: TRAMADOL HCL50 MG PO (21:04)
[2018-01-26 21:26] VITALS: BP 157/101
== END 2018-01-26 21:26 | disposition home or self-care (01) ==
LOC: ED 20:19
DX: G89.29 Other chronic pain (principal); M54.5 Low back pain; Z95.0 Presence of cardiac pacemaker; M54.6 Pain in thoracic spine; Z95.5 Presence of coronary angioplasty implant and graft

== ENCOUNTER 2018-03-06 21:21 | Emergency (ER) | payer OTHER ==
[~2018-03-06] VITALS: Ht 170.2 cm; Wt 125.0 kg
[~2018-03-06 21:21] MED LIST changes: +ADVAIR DISK1 INH; +ALBUTEROL1.25 MG/3; +AMLODIPINE10 MG PO; +BUMETANIDE2 MG PO; +EC ASPIRIN325 M1 PO; +HYDRALAZINE HCL50 MG PO
[2018-03-06] MEDS ORDERED: TRAMADOL HCL50 MG PO (21:59)
[2018-03-06 22:21] VITALS: BP 158/93
== END 2018-03-06 22:21 | disposition home or self-care (01) ==
LOC: ED 21:21
DX: M54.5 Low back pain (principal); G89.29 Other chronic pain; I11.0 Hypertensive heart disease with heart failure; I50.9 Heart failure, unspecified; E78.00 Pure hypercholesterolemia, unspecified; J44.9 Chronic obstructive pulmonary disease, unspecified; Z95.5 Presence of coronary angioplasty implant and graft; Z95.0 Presence of cardiac pacemaker; Z86.73 Personal history of transient ischemic attack (TIA), and cerebral infarction without residual deficits

== ENCOUNTER 2018-03-19 23:08 | Emergency (ER) | payer OTHER ==
[~2018-03-19] VITALS: Ht 170.2 cm; Wt 121.0 kg
[2018-03-19 23:47] LABS: HEMOGLOBIN 13.4 g/dl (14.0-18.0); IMMATURE GRANULOCYTES 0.5 % (0.0-5.0); MEAN CELL VOLUME 95.9 fL CALC (80.0-100.0); MEAN CORPUSCULAR HGB 30.6 pG CALC (26.0-32.0); MEAN CORPUSCULAR HGB CONC 31.9 g/L CALC (32.0-36.0); NEUT# 10.59 thou/uL (1.82-7.42); RED BLOOD COUNT 4.38 mill/uL (4.70-6.10); RED CELL DISTRI WIDTH 14.6 % (11.5-15.5)
[2018-03-19 23:48] LABS: URINE BILIRUBIN - DIPSTICK NEGATIVE (NEGATIVE); URINE BLOOD DIPSTICK MODERATE (NEGATIVE); URINE COLOR YELLOW; URINE GLUCOSE - DIPSTICK NEGATIVE (NEGATIVE); URINE KETONE NEGATIVE (NEGATIVE); URINE LEUK ESTERASE NEGATIVE (NEGATIVE); URINE NITRITE - DIPSTICK NEGATIVE (Negative); URINE PROTEIN - DIPSTICK >=300 mg/dL (NEG-TRACE); URINE UROBILINOGEN - DIPSTICK 0.2 E.U./dL (0.2)
[2018-03-19 23:50] LABS: URINE CLARITY SL CLOUDY
[2018-03-19 23:54] LABS: URINE BACTERIA FEW hpf; URINE MUCUS FEW hpf (NONE-FEW); URINE SQUAMOUS EPITHELIAL CELL FEW EPI/hpf (0-FEW)
[2018-03-19 23:56] LABS: ALBUMIN 4.2 g/dL (3.2-5.0); ALKALINE PHOSPHATASE 86 u/l (38-126); ANION GAP 17 (6-22 (CALC)); BILIRUBIN, TOTAL 0.7 mg/dL (0.0-1.4); BUN 10 mg/dL (9-20); BUN/CREATININE RATIO 11 (12-20 (CALC)); CARBON DIOXIDE 29 mmol/l (22-30); CHLORIDE 100 mmol/l (95-108); GFR > 60 ML/MIN (>=60 (CALC)); GFR FOR AFR.AMER. > 60 ML/MIN (>=60 (CALC)); POTASSIUM 4.3 mmol/l (3.5-5.1); SGOT/AST 40 u/l (17-59); SGPT/ALT 40 u/l (21-72); SODIUM 141 mmol/l (137-146); TOTAL PROTEIN 7.8 g/dL (6.3-8.2)
[2018-03-20 00:08] LABS: MYOGLOBIN 160 ng/mL (0 - 121)
[2018-03-20] MEDS ORDERED: ROBITUSSIN AC10 ML PO (00:37)
[2018-03-20] MEDS ORDERED: AMOXICILLIN500 MG PO (00:37)
[2018-03-20 01:38] VITALS: BP 173/85
== END 2018-03-20 01:52 | disposition home or self-care (01) ==
LOC: ED 23:08
PROVIDERS: Emergency Medicine
DX: J02.0 Streptococcal pharyngitis (principal); J44.9 Chronic obstructive pulmonary disease, unspecified; I11.0 Hypertensive heart disease with heart failure; I50.9 Heart failure, unspecified; Z95.5 Presence of coronary angioplasty implant and graft; Z95.0 Presence of cardiac pacemaker; G89.29 Other chronic pain; M54.9 Dorsalgia, unspecified; R05 Cough; R42 Dizziness and giddiness; R50.9 Fever, unspecified; J02.9 Acute pharyngitis, unspecified; R07.9 Chest pain, unspecified

== ENCOUNTER 2018-04-02 06:08 | Day surgery (SDC) | payer OTHER ==
[~2018-04-02] VITALS: Ht 170.2 cm; Wt 84.4 kg
[2018-04-02 08:20] VITALS: BP 156/89
== END 2018-04-02 08:58 | disposition home or self-care (01) ==
LOC: ORM 06:08
PROVIDERS: ATTEND Anesthesiology Pain Medicine
DX: M54.5 Low back pain (principal); M12.9 Arthropathy, unspecified

== ENCOUNTER 2018-04-30 23:38 | Emergency (ER) | payer OTHER ==
[~2018-04-30] VITALS: Ht 170.2 cm; Wt 130.6 kg
[~2018-04-30 23:38] MED LIST changes: -ALBUTEROL1.25 MG/3; +ALBUTEROL1.25 MG/3 IN
[2018-05-01 00:18] VITALS: BP 175/98
== END 2018-05-01 00:28 | disposition home or self-care (01) ==
LOC: ED 23:38
DX: M54.5 Low back pain (principal); G89.29 Other chronic pain; I11.0 Hypertensive heart disease with heart failure; I50.9 Heart failure, unspecified; E78.00 Pure hypercholesterolemia, unspecified; J44.9 Chronic obstructive pulmonary disease, unspecified; Z86.73 Personal history of transient ischemic attack (TIA), and cerebral infarction without residual deficits; Z95.5 Presence of coronary angioplasty implant and graft; Z95.0 Presence of cardiac pacemaker

== ENCOUNTER 2018-06-12 22:14 | Emergency (ER) | payer OTHER ==
[~2018-06-12] VITALS: Ht 170.2 cm; Wt 131.0 kg
[2018-06-12 23:02] LABS: URINE BILIRUBIN - DIPSTICK NEGATIVE (NEGATIVE); URINE BLOOD DIPSTICK NEGATIVE (NEGATIVE); URINE COLOR YELLOW; URINE GLUCOSE - DIPSTICK NEGATIVE (NEGATIVE); URINE KETONE 15 mg/dL (NEGATIVE); URINE LEUK ESTERASE NEGATIVE (NEGATIVE); URINE NITRITE - DIPSTICK NEGATIVE (Negative); URINE PROTEIN - DIPSTICK 100 mg/dL (NEG-TRACE); URINE SPECIFIC GRAVITY 1.025
[2018-06-12 23:05] LABS: URINE CLARITY SL CLOUDY
[2018-06-12 23:08] LABS: URINE RBC 0-2 RBC/hpf (0-5); URINE SQUAMOUS EPITHELIAL CELL MANY EPI/hpf (0-FEW); URINE WBC 0-2 WBC/hpf (0-5)
[2018-06-12 23:30] VITALS: BP 176/92
== END 2018-06-12 23:36 | disposition home or self-care (01) ==
LOC: ED 22:14
PROVIDERS: Family Medicine
DX: G89.29 Other chronic pain (principal); M54.5 Low back pain; R30.0 Dysuria; I11.0 Hypertensive heart disease with heart failure; I50.9 Heart failure, unspecified; J44.9 Chronic obstructive pulmonary disease, unspecified; E78.00 Pure hypercholesterolemia, unspecified; Z95.5 Presence of coronary angioplasty implant and graft; Z95.0 Presence of cardiac pacemaker

== ENCOUNTER 2018-07-07 23:56 | Inpatient (IN) | payer OTHER ==
[~2018-07-07] VITALS: Ht 170.2 cm; Wt 133.6 kg
[2018-07-08] VITALS (7 sets, daily range): BP systolic 147–174; BP diastolic 78–100
[2018-07-08 00:56] LABS: HEMATOCRIT 41.2 % (39.0-50.0); HEMOGLOBIN 12.7 g/dl (14.0-18.0); IMMATURE GRANULOCYTES 0.3 % (0.0-5.0); MEAN CELL VOLUME 92.6 fL CALC (80.0-100.0); MEAN CORPUSCULAR HGB 28.5 pG CALC (26.0-32.0); MEAN CORPUSCULAR HGB CONC 30.8 g/L CALC (32.0-36.0); NEUT# 3.85 thou/uL (1.82-7.42); RED BLOOD COUNT 4.45 mill/uL (4.70-6.10); RED CELL DISTRI WIDTH 16.4 % (11.5-15.5)
[2018-07-08 01:25] LABS: ALBUMIN 3.8 g/dL (3.2-5.0); ALKALINE PHOSPHATASE 74 u/l (38-126); ANION GAP 13 (6-22 (CALC)); BILIRUBIN, TOTAL 0.7 mg/dL (0.0-1.4); BUN 12 mg/dL (9-20); BUN/CREATININE RATIO 13 (12-20 (CALC)); CARBON DIOXIDE 32 mmol/l (22-30); CHLORIDE 101 mmol/l (95-108); CREATININE 0.9 mg/dL (0.7-1.3); GFR > 60 ML/MIN (>=60 (CALC)); GFR FOR AFR.AMER. > 60 ML/MIN (>=60 (CALC)); POTASSIUM 4.1 mmol/l (3.5-5.1); SGOT/AST 26 u/l (17-59); SODIUM 142 mmol/l (137-146)
[2018-07-08 02:30] LABS: MYOGLOBIN 52 ng/mL (0 - 121)
[2018-07-08 02:36] LABS: URINE BILIRUBIN - DIPSTICK NEGATIVE (NEGATIVE); URINE BLOOD DIPSTICK NEGATIVE (NEGATIVE); URINE COLOR YELLOW; URINE GLUCOSE - DIPSTICK NEGATIVE (NEGATIVE); URINE KETONE NEGATIVE (NEGATIVE); URINE LEUK ESTERASE TRACE (NEGATIVE); URINE NITRITE - DIPSTICK NEGATIVE (Negative); URINE PH 7.5 (4.5-8.0); URINE PROTEIN - DIPSTICK 100 mg/dL (NEG-TRACE); URINE SPECIFIC GRAVITY 1.025
[2018-07-08 02:39] LABS: BARBITURATES NEGATIVE (NEGATIVE); COCAINE NEGATIVE (NEGATIVE); METHADONE NEGATIVE (NEGATIVE); TETRAHYDROCANNABIONOL NEGATIVE (NEGATIVE); TRICYLIC ANTIDEPRESSANTS NEGATIVE (NEGATIVE)
[2018-07-08 02:40] LABS: OXCYCODONE NEGATIVE (NEGATIVE)
[2018-07-08 02:49] LABS: URINE SQUAMOUS EPITHELIAL CELL RARE EPI/hpf (0-FEW)
[2018-07-09] VITALS (7 sets, daily range): BP systolic 107–136; BP diastolic 68–88
[2018-07-09 05:17] LABS: HEMOGLOBIN 12.1 g/dl (14.0-18.0); IMMATURE GRANULOCYTES 0.2 % (0.0-5.0); MEAN CELL VOLUME 93.5 fL CALC (80.0-100.0); MEAN CORPUSCULAR HGB 28.3 pG CALC (26.0-32.0); MEAN CORPUSCULAR HGB CONC 30.3 g/L CALC (32.0-36.0); NEUT# 4.11 thou/uL (1.82-7.42); RED BLOOD COUNT 4.28 mill/uL (4.70-6.10); RED CELL DISTRI WIDTH 16.3 % (11.5-15.5)
[2018-07-09 05:35] LABS: ALBUMIN 3.6 g/dL (3.2-5.0); ALKALINE PHOSPHATASE 56 u/l (38-126); ANION GAP 15 (6-22 (CALC)); BILIRUBIN, TOTAL 0.9 mg/dL (0.0-1.4); BUN 15 mg/dL (9-20); BUN/CREATININE RATIO 15 (12-20 (CALC)); CARBON DIOXIDE 30 mmol/l (22-30); CHLORIDE 100 mmol/l (95-108); GFR > 60 ML/MIN (>=60 (CALC)); GFR FOR AFR.AMER. > 60 ML/MIN (>=60 (CALC)); MAGNESIUM 1.6 mg/dL (1.6-2.3); POTASSIUM 4.7 mmol/l (3.5-5.1); SGOT/AST 20 u/l (17-59); SODIUM 141 mmol/l (137-146); TOTAL PROTEIN 6.6 g/dL (6.3-8.2)
[2018-07-10 04:03] VITALS: BP 124/87
[2018-07-10 05:31] LABS: HEMATOCRIT 43.6 % (39.0-50.0); IMMATURE GRANULOCYTES 0.4 % (0.0-5.0); MEAN CELL VOLUME 95.4 fL CALC (80.0-100.0); MEAN CORPUSCULAR HGB 28.4 pG CALC (26.0-32.0); MEAN CORPUSCULAR HGB CONC 29.8 g/L CALC (32.0-36.0); NEUT# 4.85 thou/uL (1.82-7.42); RED BLOOD COUNT 4.57 mill/uL (4.70-6.10); RED CELL DISTRI WIDTH 16.3 % (11.5-15.5)
[2018-07-10 05:35] LABS: ALKALINE PHOSPHATASE 65 u/l (38-126); ANION GAP 16 (6-22 (CALC)); BILIRUBIN, TOTAL 0.8 mg/dL (0.0-1.4); BUN 20 mg/dL (9-20); BUN/CREATININE RATIO 18 (12-20 (CALC)); CARBON DIOXIDE 33 mmol/l (22-30); CHLORIDE 97 mmol/l (95-108); CREATININE 1.1 mg/dL (0.7-1.3); GFR > 60 ML/MIN (>=60 (CALC)); GFR FOR AFR.AMER. > 60 ML/MIN (>=60 (CALC)); MAGNESIUM 1.6 mg/dL (1.6-2.3); POTASSIUM 4.7 mmol/l (3.5-5.1); SGOT/AST 20 u/l (17-59); SODIUM 141 mmol/l (137-146); TOTAL PROTEIN 7.2 g/dL (6.3-8.2)
[2018-07-10 08:11] VITALS: BP 106/67
[2018-07-10 11:00] VITALS: BP 124/86
[2018-07-10 14:11] VITALS: BP 135/76
[2018-07-10 14:31] VITALS: BP 135/76
== END 2018-07-10 20:53 | disposition home or self-care (01) | DRG 291 ==
LOC: ED 23:56 → ED-I 07-08 02:34 → ED 07-08 02:57 → MS2 07-08 02:58
PROVIDERS: Emergency Medicine; ADMIT Internal Medicine; ATTEND Internal Medicine Nephrology
DX: I13.0 Hypertensive heart and chronic kidney disease with heart failure and stage 1 through stage 4 chronic kidney disease, or unspecified chronic kidney disease (principal); J18.9 Pneumonia, unspecified organism; I50.43 Acute on chronic combined systolic (congestive) and diastolic (congestive) heart failure; Z68.42 Body mass index [BMI] 45.0-49.9, adult; J44.0 Chronic obstructive pulmonary disease with (acute) lower respiratory infection; J44.1 Chronic obstructive pulmonary disease with (acute) exacerbation; N18.3 Chronic kidney disease, stage 3 (moderate); I42.0 Dilated cardiomyopathy; I25.10 Atherosclerotic heart disease of native coronary artery without angina pectoris; E78.5 Hyperlipidemia, unspecified; E66.01 Morbid (severe) obesity due to excess calories; G62.9 Polyneuropathy, unspecified; G47.33 Obstructive sleep apnea (adult) (pediatric); G89.29 Other chronic pain; Z86.73 Personal history of transient ischemic attack (TIA), and cerebral infarction without residual deficits; Z95.810 Presence of automatic (implantable) cardiac defibrillator; Z95.5 Presence of coronary angioplasty implant and graft; Z79.02 Long term (current) use of antithrombotics/antiplatelets

== ENCOUNTER 2018-08-30 21:43 | Emergency (ER) | payer OTHER ==
[~2018-08-30] VITALS: Ht 170.2 cm; Wt 127.0 kg
[2018-08-30] MEDS ORDERED: CODEINE/GUAIFEN1 SOL PO (23:40)
[2018-08-30] MEDS ORDERED: AMOXICILLIN500 MG PO (23:40)
[2018-08-30 23:45] VITALS: BP 162/97
== END 2018-08-30 23:53 | disposition home or self-care (01) ==
LOC: ED 21:43
DX: J06.9 Acute upper respiratory infection, unspecified (principal); J02.9 Acute pharyngitis, unspecified; I11.0 Hypertensive heart disease with heart failure; I50.9 Heart failure, unspecified; J44.9 Chronic obstructive pulmonary disease, unspecified; T46.5X6A Underdosing of other antihypertensive drugs, initial encounter; E78.00 Pure hypercholesterolemia, unspecified; Z95.0 Presence of cardiac pacemaker; Z95.5 Presence of coronary angioplasty implant and graft; Z86.73 Personal history of transient ischemic attack (TIA), and cerebral infarction without residual deficits; R05 Cough; R09.81 Nasal congestion

== ENCOUNTER 2018-09-20 19:09 | Emergency (ER) | payer OTHER ==
[~2018-09-20] VITALS: Ht 170.2 cm; Wt 129.5 kg
[~2018-09-20 19:09] MED LIST changes: +CODEINE/GUAIFEN1 SOL PO
--- NOTE | 2018-09-20 19:39 | NUR ---
BREATHING TREATMENT GIVEN. BREATHING TECH. FOR GOOD DEPOSITION TO THE LUNGS.
[2018-09-20 19:45] LABS: HEMATOCRIT 40.5 % (39.0-50.0); HEMOGLOBIN 12.3 g/dl (14.0-18.0); IMMATURE GRANULOCYTES 0.4 % (0.0-5.0); MEAN CELL VOLUME 92.9 fL CALC (80.0-100.0); MEAN CORPUSCULAR HGB 28.2 pG CALC (26.0-32.0); MEAN CORPUSCULAR HGB CONC 30.4 g/L CALC (32.0-36.0); NEUT# 4.82 thou/uL (1.82-7.42); RED BLOOD COUNT 4.36 mill/uL (4.70-6.10); RED CELL DISTRI WIDTH 16.8 % (11.5-15.5)
[2018-09-20 19:56] LABS: ALBUMIN 4.1 g/dL (3.2-5.0); ALKALINE PHOSPHATASE 73 u/l (38-126); BILIRUBIN, TOTAL 0.9 mg/dL (0.0-1.4); BUN 15 mg/dL (9-20); BUN/CREATININE RATIO 16 (12-20 (CALC)); CARBON DIOXIDE 28 mmol/l (22-30); CHLORIDE 105 mmol/l (95-108); GFR > 60 ML/MIN (>=60 (CALC)); GFR FOR AFR.AMER. > 60 ML/MIN (>=60 (CALC)); SGOT/AST 34 u/l (17-59); SODIUM 143 mmol/l (137-146); TOTAL PROTEIN 7.4 g/dL (6.3-8.2)
[2018-09-20 19:58] LABS: ANION GAP 14 (6-22 (CALC))
[2018-09-20 20:09] LABS: MYOGLOBIN 133 ng/mL (0 - 121)
[2018-09-20 21:09] LABS: URINE BILIRUBIN - DIPSTICK NEGATIVE (NEGATIVE); URINE BLOOD DIPSTICK TRACE-INTACT (NEGATIVE); URINE COLOR YELLOW; URINE GLUCOSE - DIPSTICK NEGATIVE (NEGATIVE); URINE KETONE NEGATIVE (NEGATIVE); URINE LEUK ESTERASE NEGATIVE (NEGATIVE); URINE NITRITE - DIPSTICK NEGATIVE (Negative); URINE PROTEIN - DIPSTICK >=300 mg/dL (NEG-TRACE); URINE SPECIFIC GRAVITY 1.025
[2018-09-20] MEDS ORDERED: PREDNISONE50 MG PO (21:14)
[2018-09-20 21:18] LABS: URINE SQUAMOUS EPITHELIAL CELL FEW EPI/hpf (0-FEW)
[2018-09-20 21:25] VITALS: BP 173/88
[2018-09-30] MEDS ORDERED: TRAMADOL HCL50 MG PO (14:42)
== END 2018-09-20 21:29 | disposition home or self-care (01) ==
LOC: ED 19:09
PROVIDERS: Family Medicine
DX: J44.1 Chronic obstructive pulmonary disease with (acute) exacerbation (principal); I11.0 Hypertensive heart disease with heart failure; I50.9 Heart failure, unspecified; E78.00 Pure hypercholesterolemia, unspecified; Z86.73 Personal history of transient ischemic attack (TIA), and cerebral infarction without residual deficits; Z95.0 Presence of cardiac pacemaker; Z95.5 Presence of coronary angioplasty implant and graft; R06.02 Shortness of breath; R05 Cough

== ENCOUNTER → 2018-09-30 | Outpatient (REF) | payer OTHER ==
[~2018-09-30] MED LIST changes: +CARVEDILOL3.125 MG PO; +COREG12.5 MG PO; +LEVAQUIN750 MG PO; +METRONIDAZOLE500 MG PO; +PREDNISONE50 MG PO
[2018-09-30 14:07] VITALS: BP 187/103
[2018-09-30 14:11] LABS: BARBITURATES NEGATIVE (NEGATIVE); COCAINE NEGATIVE (NEGATIVE); METHADONE NEGATIVE (NEGATIVE); OXCYCODONE NEGATIVE (NEGATIVE); TETRAHYDROCANNABIONOL NEGATIVE (NEGATIVE); TRICYLIC ANTIDEPRESSANTS NEGATIVE (NEGATIVE)
== END | disposition home or self-care (01) | DRG 950 ==
LOC: PAIN/MGT 13:30
PROVIDERS: ATTEND Anesthesiology Pain Medicine
DX: Z51.81 Encounter for therapeutic drug level monitoring (principal); Z79.891 Long term (current) use of opiate analgesic

== ENCOUNTER 2018-10-10 00:12 | Inpatient (IN) | payer OTHER ==
[~2018-10-10] VITALS: Ht 170.2 cm; Wt 133.5 kg
[2018-10-10] VITALS (31 sets, daily range): BP systolic 84–198; BP diastolic 59–111
[~2018-10-10 00:12] MED LIST changes: -CARVEDILOL3.125 MG PO; -COREG12.5 MG PO; -LEVAQUIN750 MG PO; -METRONIDAZOLE500 MG PO
--- NOTE | 2018-10-10 00:13 | NUR ---
BY W/C TO ROOM 6
[2018-10-10 00:48] LABS: IMMATURE GRANULOCYTES 0.3 % (0.0-5.0); MEAN CORPUSCULAR HGB 28.1 pG CALC (26.0-32.0); MEAN CORPUSCULAR HGB CONC 29.6 g/L CALC (32.0-36.0); NEUT# 5.59 thou/uL (1.82-7.42); RED BLOOD COUNT 4.98 mill/uL (4.70-6.10); RED CELL DISTRI WIDTH 18.3 % (11.5-15.5)
[2018-10-10 00:51] LABS: HEMATOCRIT 47.3 % (39.0-50.0)
[2018-10-10 01:18] LABS: ALBUMIN 4.4 g/dL (3.2-5.0); ALKALINE PHOSPHATASE 103 u/l (38-126); ANION GAP 16 (6-22 (CALC)); BUN 16 mg/dL (9-20); BUN/CREATININE RATIO 12 (12-20 (CALC)); CARBON DIOXIDE 36 mmol/l (22-30); CHLORIDE 96 mmol/l (95-108); CREATININE 1.3 mg/dL (0.7-1.3); GFR 59 ML/MIN (>=60 (CALC)); GFR FOR AFR.AMER. > 60 ML/MIN (>=60 (CALC)); POTASSIUM 3.8 mmol/l (3.5-5.1); SGOT/AST 53 u/l (17-59); SODIUM 144 mmol/l (137-146)
[2018-10-10 01:30] LABS: MYOGLOBIN 61 ng/mL (0 - 121)
--- NOTE | 2018-10-10 01:55 | NUR ---
MEDICATED FOR TEMP 99.6 NO CHILLS PT PREFERS NO GOWN OR SHEET SAYTS HE IS COMFORTABLE PAIN IS RESSOOLVING NSR NO ECTOPY
[2018-10-10 02:19] LABS: BARBITURATES NEGATIVE (NEGATIVE); COCAINE NEGATIVE (NEGATIVE); METHADONE NEGATIVE (NEGATIVE); OXCYCODONE NEGATIVE (NEGATIVE); TETRAHYDROCANNABIONOL NEGATIVE (NEGATIVE); TRICYLIC ANTIDEPRESSANTS NEGATIVE (NEGATIVE); URINE BILIRUBIN - DIPSTICK NEGATIVE (NEGATIVE); URINE BLOOD DIPSTICK NEGATIVE (NEGATIVE); URINE COLOR YELLOW; URINE GLUCOSE - DIPSTICK NEGATIVE (NEGATIVE); URINE KETONE TRACE mg/dL (NEGATIVE); URINE LEUK ESTERASE NEGATIVE (Negative); URINE NITRITE - DIPSTICK NEGATIVE (Negative); URINE PROTEIN - DIPSTICK >=300 mg/dL (NEG-TRACE); URINE SPECIFIC GRAVITY >=1.030
[2018-10-10 02:20] LABS: URINE CLARITY CLEAR
--- NOTE | 2018-10-10 02:25 | NUR ---
IV ABX DRIP COMPLETED AND PT IS COMFORTABLY WATCHING TV NO COUGH NO SOB NO CP.SR NO ECTOPY W/P ORAAL MUCOSA
[2018-10-10 02:34] LABS: URINE SQUAMOUS EPITHELIAL CELL RARE EPI/hpf (0-FEW)
[2018-10-10 02:35] LABS: URINE BACTERIA FEW hpf; URINE MUCUS FEW hpf (NONE-FEW); URINE TRICHOMONAS FEW hpf
[2018-10-10 02:37] LABS: URINE FINE GRAN CAST RARE lpf; URINE HYALINE CAST RARE lpf (NONE-RARE)
--- NOTE | 2018-10-10 03:50 | NUR ---
PHONE REPORT TO NURSE GUPTA IN ICU
--- NOTE | 2018-10-10 03:55 | NUR ---
PT TRANSPORTED TO ICU RM1 VIA STRETCHER MONITOR O2 IN STABLE CONDITION
--- NOTE | 2018-10-10 03:55 | NUR ---
PT ARRIVED TO UNIT VIA STRETCHER WITH ER STAFF; ALERT AND ORIENTED. C/O CHEST PAIN 8/10 UPON ARRIVAL; NITRO PASTE IN PLACE TO LEFT UPPER CHEST. RESPIRATIONS LABORED WITH EXERTION AND OXYGEN IN PLACE AT 2L; PT REPORTS THAT IS WHAT HE WEARS AT HOME. AMBULATED TO BED INDEPENDENTLY WITH STEADY GAIT. BLOOD PRESSURE ELEVATED AND INITIAL TELE READING SINUS TACH WITH PVC'S. ORIENTED TO ROOM AND CALL LIGHT SYSTEM. PLAN OF CARE DISCUSSED. PT ENCOURAGED TO VERBALIZE CONCERNS. STATES UNDERSTANDING. SAFETY MEASURES IN PLACE. CALL LIGHT WITHIN REACH.
--- NOTE | 2018-10-10 04:15 | NUR ---
RT AT BEDSIDE APPLYING BIPAP. LUNGS DIMISHED THROUGHOUT WITH 2+ PITTING EDEMA TO BLE. UNABLE TO APPLY BYRON HOSE. VANCOMYCIN INFUSING UPON ARRIVAL. WEIGHT OBTAINED VIA BED SCALE. ASSESSMENT COMPLETE. IV SITE TO LAC APPEARS HEALTHY.
--- NOTE | 2018-10-10 04:30 | NUR ---
4 ASA ADMINSITERED PER ED MD ORDERS.
--- NOTE | 2018-10-10 04:44 | NUR ---
PT RESTING IN SEMI FOWLERS WITH EYES CLOSED. BIPAP PLACED ON CPAP SETTINGS AT 6 WITH 28% FIO2. RESPIORATIONS CURRENTLY AT 23 EVEN AND UNLABORED. VANCO COMPLETED AND IV SITE FLUSHED.
--- NOTE | 2018-10-10 05:51 | NUR ---
BLOOD PRESSURE REMAINS ELEVATED CURRENTLY 198/107 WITH HR 112. NEW ORDER RECEIVED FROM DR. ARANDA FOR CLONIDINE PO.
--- NOTE | 2018-10-10 06:05 | NUR ---
CLONIDINE ADMINSITERED AND NEW NITRO PASTE APPLIED TO RIGHT UPPER CHEST. OLD NITRO REMOVED. CPAP REPLACED. WILL CONTINUE TO MONTIOR BLOOD PRESSURE.
--- NOTE | 2018-10-10 07:15 | NUR ---
PT IS RESTING WITH EYES CLOSED,. BIPAP IN PLACE, BREATH SOUNDS ARE DIMINISHED, HR IS REG WITH OCC PVC'S. ABD IS SOFT WITH ACTIVE BS.WELL ROUNDED. IV SITE IS FREE FROM REDNESS OR EDEMA.PULSES ARE STRONG X4. CONTINUE TO OBSERVE AND MONITOR.
--- NOTE | 2018-10-10 11:00 | NUR ---
PT WENT DOWN TO CT SCAN VIA WC ACCOMPANIED BY STAFF. IV SITE IS INTACT. O2 WENT WITH PT.
--- NOTE | 2018-10-10 12:00 | NUR ---
PT IS RELAXING ON THE SIDE OF THE BED RETURNED FROM HAVING CT SCAN COMPLETED: NO DISTRESS NOTED. IV SITE IS FREE FROM REDNESS OR EDEMA. CONTNUE TO OBSERVE AND MONITOR,
--- NOTE | 2018-10-10 14:00 | NUR ---
PT ANTIBIOTIC COMPLETED: PT IS RESTING WITH EYES CLOSED WILL CONTINUE TO WATCH BP STARTED TO DROP AT 1200 WAS 84/69, THEN AT 1300 WAS 90/61/ CONTINUE TO OSBERVE AND MONITOR.,
--- NOTE | 2018-10-10 15:30 | NUR ---
last troponin drawn by iv site pt tolerated well
--- NOTE | 2018-10-10 17:20 | NUR ---
PT IS RESTING WITH EYES CLOSED. NO DISTRESS NOTED. IV SITE IS FREE FROM REDNESS OR EDEMA.
--- NOTE | 2018-10-10 18:11 | NUR ---
FAMILY IN THE ROOM. NO DISTRESS NOTED. PT HAD BEEN RESTING COMFORTABLY. WILL CONTINUE TO OSBERVE AND MONITOR.
--- NOTE | 2018-10-10 18:50 | NUR ---
REPORT FROM CHAS SILVA. ASSUMED PT. CARE.
--- NOTE | 2018-10-10 19:20 | NUR ---
PT. ASKED IF HE HAD SOMEONE BRING HIS HOME CPAP. STATES HE HAS NOT ASKED ANYONE TO BRING HIS MASK, BUT THAT HE WILL NOT WEAR OURS BECAUSE IT HURTS HIS NOSE. ASKED PERSON AT BEDSIDE IF THEY WERE ABLE TO GO GET HIS HOME CPAP AND THEY ARE ABLE TO.
--- NOTE | 2018-10-10 20:10 | NUR ---
PT. FOUND AWAKE, ALERT, ORIENTED X 3. SKIN WARM AND DRY. AFEBRILE. RESPS EVEN AND UNLABORED. ABD SOFT, OBESE. PT. DENIES COMPLAINTS OF CP OR SOB. PULSES INTACT THROUGHOUT. DIMINISHED LUNG SOUNDS TO BASES BILAT. CLEAR UPPERS, BOWEL SOUNDS ACTIVE THROUGHOUT. NEISHA. MONTESINOS. SCANT LOWER EXT EDEMA NOTED. REMAINS WITH NITRO PATCH IN PLACE TO RT. UPPER CHEST/SHOULDER AREA. CALL LIGHT REMAINS WITHIN REACH. DINNER TRAY REMOVED AND WATER REFRESHED AT THIS TIME. WILL CONTINUE TO ASSESS.
--- NOTE | 2018-10-10 21:38 | NUR ---
PT. MEDICATED PER PHYSICIAN ORDERS. CALL LIGHT REMAINS WITHIN REACH. BLANKET PROVIDED PER PATIENT REQUEST. DENIES OTHER COMPLAINTS OR NEEDS.
--- NOTE | 2018-10-10 23:04 | NUR ---
PT. RESTING WITH EYES CLOSED IN NO DISTRESS. CALL LIGHT REMAINS WITHIN REACH. WILL CONTINUE TO ASSESS.
[2018-10-11] VITALS: BP 102/64
--- NOTE | 2018-10-11 01:41 | NUR ---
PT. RESTING WITH EYES CLOSED AND SNORING RESPIRATIONS. SPO2 REMAINS STABLE DESPITE THE FACT THE PATIENT IS NOT UTILIZING HIS OWN CPAP. BP/HR STABLE. CALL LIGHT REMAINS WITHIN REACH. WILL CONTINUE TO MONITOR.
[2018-10-11 04:00] VITALS: BP 160/83
--- NOTE | 2018-10-11 04:17 | NUR ---
PT. RESTING IN BED WITH EYES CLOSED AND SNORING RESPIRATION. PT. VOICES NO COMPAINTS OR NEEDS. RESPS REMAIN EVEN, SHALLOW, UNLABORED. BP/HR STABLE. CALL LIGHT REMAINS WITHIN REACH.
--- NOTE | 2018-10-11 04:40 | NUR ---
PT. REMAINS EASILY AROUSABLE TO LIGHT VERBAL STIMULI. RESPS REMAIN EVEN AND UNLABORED. LAB AT BEDSIDE AT THIS TIME. BLOOD SAMPLES OBTAINE. PT. REMAINS STABLE. CALL LIGHT REMAINS WITHIN REACH.
[2018-10-11 05:12] LABS: HEMATOCRIT 45.8 % (39.0-50.0); HEMOGLOBIN 13.5 g/dl (14.0-18.0); IMMATURE GRANULOCYTES 0.5 % (0.0-5.0); MEAN CORPUSCULAR HGB 28.3 pG CALC (26.0-32.0); MEAN CORPUSCULAR HGB CONC 29.5 g/L CALC (32.0-36.0); NEUT# 6.19 thou/uL (1.82-7.42); RED BLOOD COUNT 4.77 mill/uL (4.70-6.10); RED CELL DISTRI WIDTH 18.1 % (11.5-15.5)
[2018-10-11 05:23] LABS: ALKALINE PHOSPHATASE 83 u/l (38-126); ANION GAP 13 (6-22 (CALC)); BILIRUBIN, TOTAL 0.7 mg/dL (0.0-1.4); BUN 23 mg/dL (9-20); BUN/CREATININE RATIO 19 (12-20 (CALC)); CARBON DIOXIDE 34 mmol/l (22-30); CHLORIDE 99 mmol/l (95-108); CREATININE 1.2 mg/dL (0.7-1.3); GFR > 60 ML/MIN (>=60 (CALC)); GFR FOR AFR.AMER. > 60 ML/MIN (>=60 (CALC)); SGOT/AST 40 u/l (17-59); SODIUM 141 mmol/l (137-146)
[2018-10-11 05:26] LABS: MAGNESIUM 1.8 mg/dL (1.6-2.3)
[2018-10-11 08:00] VITALS: BP 111/69
--- NOTE | 2018-10-11 08:45 | NUR ---
nitropaste removed from right upper cw as per Dr Ruano request
--- NOTE | 2018-10-11 08:46 | NUR ---
DR CRAMER @BEDSIDE FOR ASSESSMENT.
--- NOTE | 2018-10-11 12:00 | NUR ---
PT SITTING ON SIDE OF BED, EATING LUNCH. NO S/S OF DISTRESS.
[2018-10-11 12:01] VITALS: BP 93/58
--- NOTE | 2018-10-11 13:35 | NUR ---
PT LAYING DOWN IN BED, APPEARS TO BE SLEEPING. RESPIRATIONS EVEN/UNLABORED, SPO2 98%. PT REFUSED HOME CPAP MACHINE. CALLBELL W/IN REACH. WILL CONTINUE TO MONITOR.
--- NOTE | 2018-10-11 14:09 | NUR ---
PO MED HELD WHILE PT NAPS.
--- NOTE | 2018-10-11 15:30 | NUR ---
WOKE PT UP FROM SLEEP TO MEDICATE. URINAL EMPTIED.
[2018-10-11 16:11] VITALS: BP 119/73
--- NOTE | 2018-10-11 16:56 | NUR ---
PT LAYING DOWN, APPEARS TO BE SLEEPING. NO S/S OF DISTRESS AT THIS TIME.
--- NOTE | 2018-10-11 17:45 | NUR ---
PT SLEEPING. WILL HOLD DINNER UNTIL PT WAKES UP. BREATHING EVEN/UNLABORED. PT WEARING 2L NC O2, REFUSING CPAP.
--- NOTE | 2018-10-11 18:45 | NUR ---
REPORT FROM Char HANCOCK RN. ASSUMED PT. CARE.
--- NOTE | 2018-10-11 19:14 | NUR ---
PT. REQUESTING DIFFERENT MEAL AT THIS TIME. REQUESTING PB&J. DIETARY INFORMED. SITTING UP IN BED IN NO DISTRESS, O2 CANNULA UP IN HIS HAIR. ENCOURAGED TO WEAR HIS NASAL CANNULA PROPERLY. DENIES COMPLAINTS OF PAIN OR NEED. RESPS EVEN AND UNLABORED.
--- NOTE | 2018-10-11 19:30 | NUR ---
DIETARY HAS BROUGHT UP A COUPLE OF PEANUT BUTTER AND JELLY SANDWICHES PER PATIENT REQUEST.
[2018-10-11 19:59] VITALS: BP 121/73
--- NOTE | 2018-10-11 20:08 | NUR ---
FAMILY AT BEDSIDE AT THIS TIME. PT. SITTING AT BEDSIDE IN NO DISTRESS. TEMP NOW 100.0. DENIES COMPLAINTS OF PAIN OR NEED. BP/HR STABLE.
--- NOTE | 2018-10-11 22:01 | NUR ---
PT. MEDICATED PER PHYSICIAN ORDERS. PATIENT REQUESTED ALL FOOD ON HIS TRAY TABLE TO THROWN IN THE GARBAGE. OFFERED TO LEAVE THE UNEATEN "WHOPPER" AND PARTIAL MILKSHAKE, BUT PT. REFUSED REQUESTING IT BE THROWN AWAY. DECLINES OFFER FOR HOME CPAP USE AT THIS TIME. PULSE OX REPLACED. WILL CONTINUE TO MONITOR.
[2018-10-12] VITALS: BP 126/72
--- NOTE | 2018-10-12 00:15 | NUR ---
PT. REMAINS EASILY AROUSABLE TO LIGHT VERBAL STIMULI. RESPS REMAIN EVEN AND UNLABORED. BP CUFF REPLACED AT THIS TIME PT. HAS REMOVED IT ON HIS OWN. CALL LIGHT REMAINS WITHIN REACH. WILL CONINTUE TO ASSESS.
--- NOTE | 2018-10-12 03:10 | NUR ---
PT. SPILLED URINAL AT THIS TIME. EMPTIED OF 800 CC OF URINE AND APPROX 100 CC OF URINE ON THE FLOOR. PT. FEET CLEANSED AND SOCKS CHANGED. FLOOR CLEANED. PT. SITTING AT BEDSIDE IN NO DISTRESS. NASAL CANNULA FOUND ON FLOOR REPLACED AT THIS TIME.
[2018-10-12 04:56] VITALS: BP 184/86
--- NOTE | 2018-10-12 05:05 | NUR ---
PT. AGAIN FOUND WITH NASAL CANNULA ON THE FLOOR. REPLACED AGAIN. ENCOURAGED TO KEEP NASAL CANNULA IN PLACE. MEDICATED PER PHYSICIAN ORDERS. WILL CONTINUE TO ASSESS.
[2018-10-12 05:30] LABS: HEMATOCRIT 45.3 % (39.0-50.0); HEMOGLOBIN 13.4 g/dl (14.0-18.0); MEAN CELL VOLUME 96.4 fL CALC (80.0-100.0); MEAN CORPUSCULAR HGB 28.5 pG CALC (26.0-32.0); MEAN CORPUSCULAR HGB CONC 29.6 g/L CALC (32.0-36.0); RED BLOOD COUNT 4.7 mill/uL (4.70-6.10); RED CELL DISTRI WIDTH 17.8 % (11.5-15.5)
[2018-10-12 05:35] LABS: ANION GAP 14 (6-22 (CALC)); BUN 20 mg/dL (9-20); BUN/CREATININE RATIO 19 (12-20 (CALC)); CARBON DIOXIDE 33 mmol/l (22-30); CHLORIDE 99 mmol/l (95-108); GFR > 60 ML/MIN (>=60 (CALC)); GFR FOR AFR.AMER. > 60 ML/MIN (>=60 (CALC)); MAGNESIUM 1.6 mg/dL (1.6-2.3); POTASSIUM 4.9 mmol/l (3.5-5.1); SODIUM 141 mmol/l (137-146)
--- NOTE | 2018-10-12 07:08 | NUR ---
REPORT RECVD FROM GIOVANNA RAND AT START OF SHIFT.
--- NOTE | 2018-10-12 07:29 | NUR ---
WHEN ASKED IF PT WANTED A BATH TODAY, HE SAID HE DIDNT NEED ONE BC "HE WAS GOING HOME TODAY". I ADVISED PT WILL BE IN LATER THIS MORNING AND PT REPEATED "I WILL BE GOING HOME TODAY". PTS TEMP 100.6
[2018-10-12 08:00] VITALS: BP 134/87
--- NOTE | 2018-10-12 08:06 | NUR ---
PT SITTING UP TO SIDE OF BED, EATING BREAKFAST. ASKED FOR FAN TO BE TURNED ON.
--- NOTE | 2018-10-12 08:13 | NUR ---
ENTERED ROOM TO RECYCLE BP, PT NOT TALKING TO THIS RN. WILL CONTINUE TO MONITOR.
--- NOTE | 2018-10-12 10:03 | NUR ---
PT SITTING UP ON SIDE OF BED WITH COVERS WRAPPED IN BLANKETS.
--- NOTE | 2018-10-12 11:49 | NUR ---
PT UP TO TOILET FOR BM WITH STEADY GAIT.
--- NOTE | 2018-10-12 11:59 | NUR ---
PT SITTING UP ON SIDE OF BED, EATING LUNCH. DC PENDING.
--- NOTE | 2018-10-12 12:00 | NUR ---
DR CRAMER @BEDSIDE WITH PT, ASSESSING PT & DISCUSSING TEST RESULTS & POC.
[2018-10-12] MEDS ORDERED: LOSARTAN POT50 MG PO (12:01)
[2018-10-12] MEDS ORDERED: PLAVIX75 MG PO (12:01)
[2018-10-12] MEDS ORDERED: COREG12.5 MG PO (12:02)
[2018-10-12 12:03] VITALS: BP 138/76
[2018-10-12] MEDS ORDERED: CARVEDILOL3.125 MG PO (12:03)
[2018-10-12] MEDS ORDERED: METRONIDAZOLE500 MG PO (12:03)
[2018-10-12] MEDS ORDERED: LEVAQUIN750 MG PO (12:03)
--- NOTE | 2018-10-12 12:47 | NUR ---
PT EDUCATED ON DC INSTRUCTIONS INCLUDING NEW MEDICATIONS, MEDS TO STOP, AND IMPORTANCE OF FOLLOW UP CARE AND MEDICATION COMPLIANCE. 3 RX HANDED TO PT WITH DC INSTRUCTIONS.
--- NOTE | 2018-10-12 12:49 | NUR ---
PT REFUSED WC, AMBULATED OUT OF ICU WITH STEADY GAIT AND ALL BELONGINGS PACKED BY HIMSELF.
== END 2018-10-12 12:44 | disposition home or self-care (01) | DRG 291 ==
LOC: ED 00:12 → ED-I 02:36 → ED 03:18 → ICU 03:19
PROVIDERS: Emergency Medicine; Internal Medicine; ADMIT Internal Medicine; ATTEND Internal Medicine Nephrology
DX: I13.0 Hypertensive heart and chronic kidney disease with heart failure and stage 1 through stage 4 chronic kidney disease, or unspecified chronic kidney disease (principal); I50.23 Acute on chronic systolic (congestive) heart failure; J44.0 Chronic obstructive pulmonary disease with (acute) lower respiratory infection; Z68.42 Body mass index [BMI] 45.0-49.9, adult; E11.22 Type 2 diabetes mellitus with diabetic chronic kidney disease; N18.3 Chronic kidney disease, stage 3 (moderate); J20.9 Acute bronchitis, unspecified; I25.5 Ischemic cardiomyopathy; I25.10 Atherosclerotic heart disease of native coronary artery without angina pectoris; A59.00 Urogenital trichomoniasis, unspecified; G47.33 Obstructive sleep apnea (adult) (pediatric); E66.01 Morbid (severe) obesity due to excess calories; E78.5 Hyperlipidemia, unspecified; E11.42 Type 2 diabetes mellitus with diabetic polyneuropathy; E11.21 Type 2 diabetes mellitus with diabetic nephropathy; Z86.73 Personal history of transient ischemic attack (TIA), and cerebral infarction without residual deficits; Z95.810 Presence of automatic (implantable) cardiac defibrillator; Z95.5 Presence of coronary angioplasty implant and graft; Z99.81 Dependence on supplemental oxygen

== ENCOUNTER 2018-11-13 22:53 | Emergency (ER) | payer OTHER ==
[~2018-11-13] VITALS: Ht 170.2 cm; Wt 135.2 kg
[~2018-11-13 22:53] MED LIST changes: +CARVEDILOL3.125 MG PO; +COREG12.5 MG PO; +LEVAQUIN750 MG PO; +METRONIDAZOLE500 MG PO
[2018-11-14] MEDS ORDERED: ORPHENADRINE100 MG PO (00:12)
[2018-11-14] MEDS ORDERED: VOLTAREN - GENE75 MG PO (00:12)
[2018-11-14] MEDS ORDERED: TRAMADOL HCL50 MG PO (00:12)
[2018-11-14 00:32] VITALS: BP 171/92
== END 2018-11-14 00:32 | disposition home or self-care (01) ==
LOC: ED 22:53
DX: S29.011A Strain of muscle and tendon of front wall of thorax, initial encounter (principal); R07.81 Pleurodynia; W18.49XA Other slipping, tripping and stumbling without falling, initial encounter; Y93.E1 Activity, personal bathing and showering; Y92.002 Bathroom of unspecified non-institutional (private) residence as the place of occurrence of the external cause

== ENCOUNTER 2018-11-19 18:33 | Inpatient (IN) | payer OTHER ==
[~2018-11-19] VITALS: Ht 170.2 cm; Wt 133.2 kg
[~2018-11-19 18:33] MED LIST changes: +ORPHENADRINE100 MG PO
--- NOTE | 2018-11-19 18:33 | NUR ---
PT TO ROOM VIA WHEELCHAIR FOR BEDSIDE TRIAGE.
--- NOTE | 2018-11-19 18:52 | NUR ---
2ND BLOOD PRESSURE TAKEN 157/77, ORAL TEMP OBTAINED 98.2, DR. MCDERMOTT NOTIFIED, WILL NOT BE GIVING BLOOD PRESSURE MEDICATION ORDERED.
--- NOTE | 2018-11-19 18:54 | NUR ---
PT STATES IS ON OXYGEN AT ALL TIMES. 2 LITRES, NOTIFIED.
[2018-11-19 19:00] LABS: HEMATOCRIT 45.9 % (39.0-50.0); HEMOGLOBIN 13.6 g/dl (14.0-18.0); IMMATURE GRANULOCYTES 0.9 % (0.0-5.0); MEAN CELL VOLUME 93.7 fL CALC (80.0-100.0); MEAN CORPUSCULAR HGB 27.8 pG CALC (26.0-32.0); MEAN CORPUSCULAR HGB CONC 29.6 g/L CALC (32.0-36.0); NEUT# 11.9 thou/uL (1.82-7.42); RED BLOOD COUNT 4.9 mill/uL (4.70-6.10); RED CELL DISTRI WIDTH 17.6 % (11.5-15.5)
[2018-11-19] MEDS ORDERED: ISOSORB MONO30 MG PO (19:00)
[2018-11-19] MEDS ORDERED: MIRTAZAPINE15 MG PO (19:00)
[2018-11-19] MEDS ORDERED: SPIRONOLACTONE25 MG PO (19:00)
[2018-11-19 19:19] LABS: ALBUMIN 4.7 g/dL (3.2-5.0); ALKALINE PHOSPHATASE 84 u/l (38-126); BILIRUBIN, TOTAL 0.8 mg/dL (0.0-1.4); BUN 39 mg/dL (9-20); BUN/CREATININE RATIO 27 (12-20 (CALC)); CHLORIDE 102 mmol/l (95-108); CREATININE 1.5 mg/dL (0.7-1.3); GFR 50 ML/MIN (>=60 (CALC)); GFR FOR AFR.AMER. > 60 ML/MIN (>=60 (CALC)); SGOT/AST 65 u/l (17-59); SODIUM 140 mmol/l (137-146); TOTAL PROTEIN 8.1 g/dL (6.3-8.2)
--- NOTE | 2018-11-19 19:19 | NUR ---
PT STATES HAS NOT HAD ANY OF HIS MEDICATIONS SINCE SATURDAY BECAUSE [facility] STAFF DID NOT GIVE HIM ANY MEDICATIONS. STATES JUST STARTED HAVING INCREASED SOB APPROX 3 HOURS AGO. PT STATES HE IS ON O2/22 L PER NC/ AT HOME AND HAS PORTABLE TANK HE WAS USING TO COME TO ER WITH.
[2018-11-19 19:21] LABS: ANION GAP 18 (6-22 (CALC)); CARBON DIOXIDE 25 mmol/l (22-30); POTASSIUM 5.3 mmol/l (3.5-5.1)
--- NOTE | 2018-11-19 19:22 | NUR ---
AT BEDSIDE, AUTHORIZATION SENT TO [facility] FOR MEDICAL RECORDS OF TIME AT THEIR HOSP[facility].
[2018-11-19 19:31] LABS: MYOGLOBIN 477 ng/mL (0 - 121)
--- NOTE | 2018-11-19 20:11 | NUR ---
PT RESTING QUIETLY ON SIDE OF BED. TRAY PLACED IN FRONT OF PT, PT STATES FEELS A LITTLE BETTER AT THIS TIME.
[2018-11-19 20:54] LABS: URINE BILIRUBIN - DIPSTICK NEGATIVE (NEGATIVE); URINE BLOOD DIPSTICK SMALL (NEGATIVE); URINE COLOR YELLOW; URINE GLUCOSE - DIPSTICK NEGATIVE (NEGATIVE); URINE KETONE NEGATIVE (NEGATIVE); URINE LEUK ESTERASE NEGATIVE (NEGATIVE); URINE NITRITE - DIPSTICK NEGATIVE (Negative); URINE PROTEIN - DIPSTICK 30 mg/dL (NEG-TRACE); URINE UROBILINOGEN - DIPSTICK 0.2 E.U./dL (0.2)
--- NOTE | 2018-11-19 20:58 | NUR ---
ROCEPHIN INFUSING, PT SITTING UP ON SIDE OF BED, WATCHING TV.
[2018-11-19 21:02] LABS: URINE WBC 0-2 WBC/hpf (0-5)
[2018-11-19 21:48] VITALS: BP 169/92
--- NOTE | 2018-11-19 21:48 | NUR ---
PT ARRIVED TO FLOOR VIA WHEELCHAIR ACCOMPAINED BY ER STAFF. PT ALERT AND ORIENTED. AMBULATED FROM WHEELCHAIR TO BED WITH STEADY GAIT. SITTING UP ON SIDE OF BED, PT RESPIRATIONS LABORED, CURRENTLY ON 2L/M VIA NC WITH O2 SAT 93%. THREAD SEPARATOR IN PLACE, INITIAL READING SR 97. PT DENIES ANY PAIN OR DISCOMFORT. IV SITE APPEARS HEALTHY. DISCUSSED POC. PT VERBALIZED UNDERSTANDING. VISITOR ENTERS ROOM WITH FELICIA ROSENTHAL. EDUCATED PT ON 2GM SODIUM DIET AT THIS TIME, PT CONTINUE TO EAT FOOD BROUGHT BY GUEST. ORIENTED TO ROOM AND CALL LIGHT SYSTEM. CALL LIGHT WITHIN REACH. WILL CONTINUE TO MONITOR.
--- NOTE | 2018-11-19 21:55 | NUR ---
PT TRANSPORTED TO [facility] BY GIOVANNA VELA VIA W/C
[2018-11-20 00:10] VITALS: BP 139/69
--- NOTE | 2018-11-20 00:55 | NUR ---
PT RESTING IN BED WITH EYES CLOSED. PT NOT WEARING O2 AT THIS TIME. 02 SAT 89% EDUCATION SITE MANAGER WOKE PT UP TO ASSISTED PUTTING IT BACK ON AND PT REFUSED AFTER SEVERAL ATTEMPTS. RT NOTIFIED. PT PUT O2 ON AT THIS TIME FOR RT. CALL LIGHT WITHIN REACH. WILL CONTINUE TO MONITOR.
[2018-11-20 04:10] VITALS: BP 149/84
--- NOTE | 2018-11-20 05:07 | NUR ---
PT NOTED SITTING AT SIDE OF BED WITH GOWN AND TWISTHAND OFF. PT ALERT AND ORIENTED. O2 @ 2L/M VIA NC. WHEN ASKED WHY MONITOR AND GOWN WERE OFF PT STATES HE WAS HOT. RE-APPLIED MONITOR. PT DENIES ANY WANTS OR NEEDS. CALL LIGHT WITHIN REACH. WILL CONTINUE TO MONITOR.
--- NOTE | 2018-11-20 07:30 | NUR ---
REPORT RECEIVED FROM CHAS LE. PT SITTING UPRIGHT IN BED. DENIES PAIN. MOSTLY GRUNTS TO QUESTIONING. REPORTING OF CONCERNS ENCOURAGED. WET COUGH NOTED. PT DENIES PRODUCTIVE COUGH. O2 @ 2L VIA NC, O2 SAT 90%. PT AMBULATES TO RESTROOM INDEPENDENTLY. CALL LIGHT REVIEWED AND IN REACH. PT STATES UNDERSTANDING.
[2018-11-20 07:45] VITALS: BP 156/67
--- NOTE | 2018-11-20 10:58 | NUR ---
DR. JOHNSTON IN TO SEE PT. AT THIS TIME. ADJUSTMENT TO MEDICATION REGIMEN DISCUSSED.
[2018-11-20 11:05] VITALS: BP 181/96
--- NOTE | 2018-11-20 12:01 | NUR ---
DR. STEEN NOTIFIED OF CONSULT AND PRESENT ON UNIT AT THIS TIME.
[2018-11-20 15:49] LABS: ALBUMIN 4.4 g/dL (3.2-5.0); BUN 30 mg/dL (9-20); CARBON DIOXIDE 22 mmol/l (22-30); CHLORIDE 103 mmol/l (95-108); CREATININE 1.1 mg/dL (0.7-1.3); GFR > 60 ML/MIN (>=60 (CALC)); GFR FOR AFR.AMER. > 60 ML/MIN (>=60 (CALC)); POTASSIUM 5.1 mmol/l (3.5-5.1); SODIUM 139 mmol/l (137-146)
--- NOTE | 2018-11-20 16:05 | NUR ---
PT UP TO SHOWER. SIGNIFICANT OTHER AT BEDSIDE. DENIES COMPLAINTS. TOLERATED ACTIVITY WELL.
[2018-11-20 16:11] VITALS: BP 150/91
--- NOTE | 2018-11-20 19:00 | NUR ---
PT RESTING IN BED WITH EYES CLOSED, NO SIGNS OF DISTRESS NOTED, RESP EVEN AND UNLABORED. PT SATS 95%ON 02 2L NC, PT DIFFICULT TO STIMULATE, HR 102 RESP 22. PT ALERT AND ORIENTED X3. NORMALLY USES CPAP AT NIGHT BUT NO IS AVAILABLE TO BRING IT FROM HOME, INSTRUCTED TO KEEP O2 ON QHS. CALL LIGHT IN REACH,CONTINUE TO MONITOR.
[2018-11-20 19:21] VITALS: BP 150/82
--- NOTE | 2018-11-20 21:38 | NUR ---
PT SITTING ON SIDE OF BED, NO SIGNS OF DISTRESS NOTED, RESP EVEN AND UNLABORED. 02 2L NC, PT MEDICATED PER MAR, VOICES NO NEEDS OR COMPLAINTS AT THIS TIME. CALL LIGHT IN REACH,CONTINUE TO MONITOR.
[2018-11-21] VITALS (10 sets, daily range): BP systolic 99–173; BP diastolic 60–101
--- NOTE | 2018-11-21 | NUR ---
ZITHROMYCIN INFUSION COMPLETED, SOLUMEDROL GIVEN. VOICES NO NEEDS OR COMPLAINTS AT THIS TIME. 02 2L NC, CALL LIGHT IN REACH,CONTINUE TO MONITOR.
[2018-11-21 06:14] LABS: HEMATOCRIT 44.6 % (39.0-50.0); HEMOGLOBIN 13.3 g/dl (14.0-18.0); IMMATURE GRANULOCYTES 0.7 % (0.0-5.0); MEAN CELL VOLUME 94.3 fL CALC (80.0-100.0); MEAN CORPUSCULAR HGB 28.1 pG CALC (26.0-32.0); MEAN CORPUSCULAR HGB CONC 29.8 g/L CALC (32.0-36.0); NEUT# 13.33 thou/uL (1.82-7.42); RED BLOOD COUNT 4.73 mill/uL (4.70-6.10); RED CELL DISTRI WIDTH 17.5 % (11.5-15.5)
[2018-11-21 06:32] LABS: ALBUMIN 4.2 g/dL (3.2-5.0); ALKALINE PHOSPHATASE 76 u/l (38-126); AMYLASE 42 u/l (30-110); BILIRUBIN, TOTAL 0.5 mg/dL (0.0-1.4); BUN 28 mg/dL (9-20); BUN/CREATININE RATIO 27 (12-20 (CALC)); CHLORIDE 102 mmol/l (95-108); CREATININE 1.1 mg/dL (0.7-1.3); GFR > 60 ML/MIN (>=60 (CALC)); GFR FOR AFR.AMER. > 60 ML/MIN (>=60 (CALC)); LIPASE 48 u/l (23-300); SGOT/AST 45 u/l (17-59); SODIUM 143 mmol/l (137-146); TOTAL PROTEIN 7.1 g/dL (6.3-8.2)
[2018-11-21 06:41] LABS: ANION GAP 14 (6-22 (CALC)); CARBON DIOXIDE 32 mmol/l (22-30); MAGNESIUM 2.2 mg/dL (1.6-2.3); POTASSIUM 5.2 mmol/l (3.5-5.1)
--- NOTE | 2018-11-21 06:55 | NUR ---
PT REPORT RECIEVED FROM CHAS HAMMOND. PT SLEEPING. NO S/S OF DISTRESS. CALL LIGHT IN REACH. WILL CONTINUE TO MONITOR.
--- NOTE | 2018-11-21 07:19 | NUR ---
STRATEGIC PLANNING SPECIALIST CALLED STATING PT TACHY; UP TO 160S AND THROWING PVCS. PT UP TO RESTROOM NO S/S OF DISTRESS. BP AND PULSE TO BE CHECKED WHEN PT EXITS RESTROOM. WILL CONTINUE TO MONIOR.
--- NOTE | 2018-11-21 07:35 | NUR ---
PT A/O X3. SPEECH IS CLEAR. RESP LABORED. LUNG SOUNDS DIMINISHED. TELE IN PLACE. O2 @2L ON PT. BOWEL SOUNDS ACTIVE X4. STRONG RADIAL, WEAK PEDAL PULSES. #20 LAC SL. FLUSHED AND PATENT. SITE APPEARS HEALTHY. TRACE OF EDEMA NOTED TO BLE. ENCOURAGED ELEVATION. PT DENIES ANY PAIN OR NEEDS. POC DISCUSSED. SAFETY PRECAUTIONS IN PLACE. CALL LIGHT IN REACH. WILL CONTINUE TO MONITOR.
--- NOTE | 2018-11-21 11:25 | NUR ---
API DEVELOPER CALLED STATING PT TELE READING TACHY IN THE 120S W/ PVCS. PT SITTING IN SIDE OF BED. BP READING 154/83, PULSE 115. MD IN ROOM AT THIS TIME. MD MADE AWARE OF TREND. NO NEW ORDERS AT THIS TIME. WILL CONTINUE TO MONITOR.
--- NOTE | 2018-11-21 12:21 | NUR ---
PT SITTING ON SIDE OF BED ON PHONE. O2 @2L REAPPLIED TO PT. REINFORCED THE NEED TO KEEP OXYGEN ON. PT DENIES ANY PAIN OR NEEDS. CALL LIGHT IN REACH. WILL CONTINUE TO MONITOR.
--- NOTE | 2018-11-21 15:28 | NUR ---
GIOVANNA FLOWERS FROM ER CALLED STATING PT TELE READING ASYSTOLE. PREVIOUS CALLED RECIEVED FROM CAMELID FIBER SORTER NEELIMA STATING PT TELE HAS WAVES BUT NO READING. FILING AND POLISHING SUPERVISOR INTO ROOM WHEN GIOVANNA FLOWERS CALLED. FILING AND POLISHING SUPERVISOR UNPLUGGED TELE AND REMOVED BATTERIES; THIS BEING THE REASON PT READING ASYSTOLE. PT SITTING ON SIDE OF BED WATCHING SHOWS ON CELLPHONE.
--- NOTE | 2018-11-21 16:50 | NUR ---
PT RESTING IN BED. NO C/O PAIN OR NEEDS. CALL LIGHT IN REACH. WILL CONTINUE TO MONITOR.
--- NOTE | 2018-11-21 19:38 | NUR ---
PT. SITTING UP ON THE SIDE OF THE BED WITH NO DISTRESS NOTED; O2 INFUSING PER NC PER ORDER; ASSESSMENT COMPLETED; INSTRUCTED TO VOID IN URINAL EVERY TIME AND INSTRUCTED OF NEED FOR URINE SAMPLE; VERBALIZES UNDERSTANDING; IV SITE PATENT AND SL; ENCOURAGED TO CALL FOR ANY NEEDS; CALL LIGHT IS IN REACH; WILL CONTINUE TO MONITOR.
--- NOTE | 2018-11-21 21:19 | NUR ---
PT. C/O BACK PAIN 02/28 AND B/P 178/ AND ALSO C/O COUGH; MEDICATED WITH ORDERED PRN ROBITUSSIN AND TRAMADOL ALONG WITH SCHED APRESOLINE; WILL REASSESS; DENIES FURTHER NEEDS; CALL LIGHT IS IN REACH.
--- NOTE | 2018-11-21 23:50 | NUR ---
PT. RESTING IN BED WITH NO DISTRESS NOTED; EYES CLOSED; CALL LIGHT IS IN REACH; WILL CONTINUE TO MONITOR.
[2018-11-22 00:35] VITALS: BP 153/88
--- NOTE | 2018-11-22 03:23 | NUR ---
PT. RESTING IN BED WITH EYES CLOSED; SNORING; NO DISTRESS NOTED; CALL LIGHT IS IN REACH.
[2018-11-22 03:46] VITALS: BP 151/96
--- NOTE | 2018-11-22 04:16 | NUR ---
PT. AMBULATGING BACK FROM THE BATHROOM AND HAS EXERTTIONAL SOB; O2 REAPPLIED @2LITERS/MIN PER NC PER ORDER; GATORADE GIVEN PER PTS REQUEST; DENIES FURTHER NEEDS; CALL LIGHT IS IN REACH.
--- NOTE | 2018-11-22 05:29 | NUR ---
PT. C/O COUGH AND BACK PAIN AND IS MEDICATED WITH ORDERED PRN ROBITUSSIN AND TRAMADOL; WILL REASSESS; DENIES FURTHER NEEDS; CALL LIGHT IS IN REACH.
[2018-11-22 07:42] VITALS: BP 175/99
--- NOTE | 2018-11-22 07:42 | NUR ---
PT A/O X3. SPEECH IS CLEAR. RESP EVEN AND UNLABORED. SOB ON EXERTION. LUNG SOUNDS DIMINISHED ANTERIORLY, WHEEZING POSTERIORLY. O2 @2L ON PT. TELE IN PLACE. BOWEL SOUNDS ACTIVE X4. STRONG RADIAL, WEAK PEDAL PULSES. #20 LAC SL. FLUSHED AND PATENT. SITE APPEARS HEALTHY. PT HAS TRACE OF EDEMA TO BLE; ENCOURAGED ELEVATION. SKIN INTACT. PT DENIES ANY PAIN OR NEEDS. POC DISCUSSED. SAFETY PRECAUTIONS IN PLACE. URINAL AT BEDSIDE. CALL LIGHT IN REACH. WILL CONTINUE TO MONITOR.
[2018-11-22 09:58] VITALS: BP 131/75
[2018-11-22 10:58] VITALS: BP 139/75
--- NOTE | 2018-11-22 11:44 | NUR ---
PT SITTING ON SIDE OF BED RESTING. NO C/O PAIN OR NEEDS. O2 @2L ON PT. TELE IN PLACE. CALL LIGHT IN REACH. WILL CONTINUE TO MONITOR.
[2018-11-22] MEDS ORDERED: ZITHROMAX500 MG PO (12:51)
--- NOTE | 2018-11-22 12:58 | NUR ---
PT ON RA MO DISTRESS. NO COMPUTER ON WHEELS FOR SCANNING. PHYSICIANS USED FOR CHARTING
--- NOTE | 2018-11-22 14:03 | NUR ---
D/C INSTRUCTIONS DISCUSSED W/ PT.PT STATES UNDERSTANDING. TELE IN PLACE. IV REMOVED. CATHETER INTACT. PT AWAITING HIS RIDE HOME.
--- NOTE | 2018-11-22 14:06 | NUR ---
Discharge instructions given. Patient verbalizes understanding of same. Discharged in stable condition via Ambulatory to Home with family. All belongings sent with pt.
== END 2018-11-22 14:06 | disposition home or self-care (01) | DRG 291 ==
LOC: ED 18:33 → ED-I 20:50 → ED 21:13 → MS2 21:14
PROVIDERS: Emergency Medicine; Internal Medicine Nephrology; ADMIT Internal Medicine; ATTEND Internal Medicine Nephrology
DX: I13.0 Hypertensive heart and chronic kidney disease with heart failure and stage 1 through stage 4 chronic kidney disease, or unspecified chronic kidney disease (principal); I50.23 Acute on chronic systolic (congestive) heart failure; J18.9 Pneumonia, unspecified organism; J44.1 Chronic obstructive pulmonary disease with (acute) exacerbation; N39.0 Urinary tract infection, site not specified; Z68.42 Body mass index [BMI] 45.0-49.9, adult; N17.9 Acute kidney failure, unspecified; J44.0 Chronic obstructive pulmonary disease with (acute) lower respiratory infection; I16.0 Hypertensive urgency; I25.5 Ischemic cardiomyopathy; I25.10 Atherosclerotic heart disease of native coronary artery without angina pectoris; E66.01 Morbid (severe) obesity due to excess calories; E78.5 Hyperlipidemia, unspecified; D63.1 Anemia in chronic kidney disease; E11.22 Type 2 diabetes mellitus with diabetic chronic kidney disease; E87.5 Hyperkalemia; N18.3 Chronic kidney disease, stage 3 (moderate); T50.0X5A Adverse effect of mineralocorticoids and their antagonists, initial encounter; T46.5X5A Adverse effect of other antihypertensive drugs, initial encounter; Z95.810 Presence of automatic (implantable) cardiac defibrillator; Z99.81 Dependence on supplemental oxygen; Z95.5 Presence of coronary angioplasty implant and graft; Z86.73 Personal history of transient ischemic attack (TIA), and cerebral infarction without residual deficits; Z79.4 Long term (current) use of insulin

== ENCOUNTER 2018-11-28 18:42 | Emergency (ER) | payer OTHER ==
[~2018-11-28] VITALS: Ht 170.2 cm; Wt 150.0 kg
[~2018-11-28 18:42] MED LIST changes: +MIRTAZAPINE15 MG PO; +SPIRONOLACTONE25 MG PO
[2018-11-28 19:33] LABS: HEMATOCRIT 40.8 % (39.0-50.0); HEMOGLOBIN 12.3 g/dl (14.0-18.0); IMMATURE GRANULOCYTES 0.7 % (0.0-5.0); MEAN CELL VOLUME 94.7 fL CALC (80.0-100.0); MEAN CORPUSCULAR HGB 28.5 pG CALC (26.0-32.0); MEAN CORPUSCULAR HGB CONC 30.1 g/L CALC (32.0-36.0); NEUT# 7.08 thou/uL (1.82-7.42); RED BLOOD COUNT 4.31 mill/uL (4.70-6.10); RED CELL DISTRI WIDTH 18.5 % (11.5-15.5)
[2018-11-28 19:40] LABS: ACT PARTIAL THROMBO TIME 23.2 SECONDS (20.0-32.5); D-DIMER 0.49 mg/L (0.19-0.60); INTERNATIONAL NORMALIZED RATIO 0.9 RATIO (0.7-1.3); PROTHROMBIN TIME 9.8 SECONDS (9.0-12.5)
[2018-11-28 19:42] LABS: ALBUMIN 3.8 g/dL (3.2-5.0); ALKALINE PHOSPHATASE 90 u/l (38-126); AMYLASE 48 u/l (30-110); ANION GAP 9 (6-22 (CALC)); BUN 17 mg/dL (9-20); BUN/CREATININE RATIO 16 (12-20 (CALC)); CARBON DIOXIDE 31 mmol/l (22-30); CHLORIDE 106 mmol/l (95-108); GFR > 60 ML/MIN (>=60 (CALC)); GFR FOR AFR.AMER. > 60 ML/MIN (>=60 (CALC)); LIPASE 89 u/l (23-300); POTASSIUM 4.7 mmol/l (3.5-5.1); SGOT/AST 52 u/l (17-59); SODIUM 142 mmol/l (137-146); TOTAL PROTEIN 6.4 g/dL (6.3-8.2)
[2018-11-28 19:43] LABS: BILIRUBIN, TOTAL 0.9 mg/dL (0.0-1.4)
[2018-11-28 19:52] LABS: MYOGLOBIN 71 ng/mL (0 - 121)
[2018-11-29] MEDS ORDERED: TORADOL PO (01:58)
[2018-11-29] MEDS ORDERED: METO25TAB PO (01:58)
[2018-11-29 02:00] VITALS: BP 113/70
== END 2018-11-29 02:05 | disposition home or self-care (01) ==
LOC: ED 18:42
PROVIDERS: Family Medicine
DX: R07.89 Other chest pain (principal); I13.0 Hypertensive heart and chronic kidney disease with heart failure and stage 1 through stage 4 chronic kidney disease, or unspecified chronic kidney disease; N18.3 Chronic kidney disease, stage 3 (moderate); I50.9 Heart failure, unspecified; J44.9 Chronic obstructive pulmonary disease, unspecified; I25.5 Ischemic cardiomyopathy; Z95.810 Presence of automatic (implantable) cardiac defibrillator; Z95.5 Presence of coronary angioplasty implant and graft

== ENCOUNTER 2018-12-06 06:40 | Emergency (ER) | payer OTHER ==
[~2018-12-06] VITALS: Ht 170.2 cm; Wt 126.0 kg
[~2018-12-06 06:40] MED LIST changes: +METO25TAB PO; +TORADOL PO
[2018-12-06] MEDS ORDERED: FLEXERIL PO (07:14)
[2018-12-06] MEDS ORDERED: ULTRAM50 M1 PO (07:14)
[2018-12-06 07:17] VITALS: BP 124/87
== END 2018-12-06 07:32 | disposition home or self-care (01) ==
LOC: ED 06:40
DX: G89.29 Other chronic pain (principal); M54.5 Low back pain; Z76.0 Encounter for issue of repeat prescription

== ENCOUNTER 2018-12-20 04:58 | Emergency (ER) | payer OTHER ==
[~2018-12-20] VITALS: Ht 170.2 cm; Wt 132.0 kg
[2018-12-20 05:35] LABS: HEMATOCRIT 44.9 % (39.0-50.0); HEMOGLOBIN 13.7 g/dl (14.0-18.0); IMMATURE GRANULOCYTES 0.4 % (0.0-5.0); MEAN CELL VOLUME 94.1 fL CALC (80.0-100.0); MEAN CORPUSCULAR HGB 28.7 pG CALC (26.0-32.0); MEAN CORPUSCULAR HGB CONC 30.5 g/L CALC (32.0-36.0); NEUT# 4.28 thou/uL (1.82-7.42); RED BLOOD COUNT 4.77 mill/uL (4.70-6.10)
[2018-12-20 05:49] LABS: ALBUMIN 4.5 g/dL (3.2-5.0); ALKALINE PHOSPHATASE 94 u/l (38-126); ANION GAP 15 (6-22 (CALC)); BILIRUBIN, TOTAL 0.9 mg/dL (0.0-1.4); BUN 15 mg/dL (9-20); BUN/CREATININE RATIO 15 (12-20 (CALC)); CARBON DIOXIDE 30 mmol/l (22-30); CHLORIDE 102 mmol/l (95-108); GFR > 60 ML/MIN (>=60 (CALC)); GFR FOR AFR.AMER. > 60 ML/MIN (>=60 (CALC)); SGOT/AST 39 u/l (17-59); SODIUM 143 mmol/l (137-146); TOTAL PROTEIN 7.5 g/dL (6.3-8.2)
[2018-12-20 08:20] VITALS: BP 153/94
== END 2018-12-20 08:20 | disposition home or self-care (01) ==
LOC: ED 04:58
PROVIDERS: Emergency Medicine
DX: S96.812A Strain of other specified muscles and tendons at ankle and foot level, left foot, initial encounter (principal); I50.9 Heart failure, unspecified; I13.0 Hypertensive heart and chronic kidney disease with heart failure and stage 1 through stage 4 chronic kidney disease, or unspecified chronic kidney disease; N18.3 Chronic kidney disease, stage 3 (moderate); J44.9 Chronic obstructive pulmonary disease, unspecified; I25.5 Ischemic cardiomyopathy; X58.XXXA Exposure to other specified factors, initial encounter; Z95.5 Presence of coronary angioplasty implant and graft; Z95.810 Presence of automatic (implantable) cardiac defibrillator; M79.605 Pain in left leg

== ENCOUNTER 2019-02-19 21:32 | Emergency (ER) | payer OTHER ==
[~2019-02-19] VITALS: Ht 170.2 cm; Wt 138.6 kg
[2019-02-19 22:04] LABS: HEMATOCRIT 45.5 % (39.0-50.0); HEMOGLOBIN 13.9 g/dl (14.0-18.0); IMMATURE GRANULOCYTES 0.3 % (0.0-5.0); MEAN CELL VOLUME 93.8 fL CALC (80.0-100.0); MEAN CORPUSCULAR HGB 28.7 pG CALC (26.0-32.0); MEAN CORPUSCULAR HGB CONC 30.5 g/L CALC (32.0-36.0); NEUT# 6.51 thou/uL (1.82-7.42); RED BLOOD COUNT 4.85 mill/uL (4.70-6.10); RED CELL DISTRI WIDTH 18.6 % (11.5-15.5)
[2019-02-19 22:16] LABS: ALBUMIN 4.2 g/dL (3.2-5.0); ALKALINE PHOSPHATASE 83 u/l (38-126); AMYLASE 70 u/l (30-110); ANION GAP 13 (6-22 (CALC)); BILIRUBIN, TOTAL 1.1 mg/dL (0.0-1.4); BUN 16 mg/dL (9-20); BUN/CREATININE RATIO 13 (12-20 (CALC)); CARBON DIOXIDE 30 mmol/l (22-30); CHLORIDE 103 mmol/l (95-108); CREATININE 1.2 mg/dL (0.7-1.3); GFR > 60 ML/MIN (>=60 (CALC)); GFR FOR AFR.AMER. > 60 ML/MIN (>=60 (CALC)); LIPASE 65 u/l (23-300); POTASSIUM 4.8 mmol/l (3.5-5.1); SGOT/AST 67 u/l (17-59); SODIUM 141 mmol/l (137-146)
[2019-02-19 22:28] LABS: MYOGLOBIN 104 ng/mL (0 - 121)
[2019-02-19] MEDS ORDERED: ADVAIR DISKU IN (22:29)
[2019-02-19] MEDS ORDERED: CARVEDILOL3.125 MG PO (22:30)
[2019-02-19] MEDS ORDERED: CLONIDINE0.3 MG/21 (22:32)
[2019-02-19] MEDS ORDERED: CYCLOBENZAPR10 MG PO (22:33)
[2019-02-19] MEDS ORDERED: OXY1 (22:34)
[2019-02-19 22:54] LABS: URINE BILIRUBIN - DIPSTICK NEGATIVE (NEGATIVE); URINE BLOOD DIPSTICK TRACE-INTACT (NEGATIVE); URINE COLOR YELLOW; URINE GLUCOSE - DIPSTICK NEGATIVE (NEGATIVE); URINE KETONE NEGATIVE (NEGATIVE); URINE LEUK ESTERASE NEGATIVE (NEGATIVE); URINE NITRITE - DIPSTICK NEGATIVE (Negative); URINE PH 5.5 (4.5-8.0); URINE PROTEIN - DIPSTICK 100 mg/dL (NEG-TRACE); URINE SPECIFIC GRAVITY 1.025; URINE UROBILINOGEN - DIPSTICK 0.2 E.U./dL (0.2)
[2019-02-19 23:09] LABS: URINE BACTERIA RARE hpf; URINE RBC 0-2 RBC/hpf (0-5); URINE SQUAMOUS EPITHELIAL CELL FEW EPI/hpf (0-FEW); URINE WBC 0-2 WBC/hpf (0-5)
[2019-02-20 00:08] VITALS: BP 158/88
== END 2019-02-20 00:08 | disposition home or self-care (01) ==
LOC: ED 21:32
PROVIDERS: Family Medicine
DX: E87.79 Other fluid overload (principal); R06.02 Shortness of breath; R07.9 Chest pain, unspecified; R00.0 Tachycardia, unspecified; R05 Cough; R33.9 Retention of urine, unspecified; I12.9 Hypertensive chronic kidney disease with stage 1 through stage 4 chronic kidney disease, or unspecified chronic kidney disease; N18.3 Chronic kidney disease, stage 3 (moderate); Z95.5 Presence of coronary angioplasty implant and graft

== ENCOUNTER 2019-03-28 02:08 | Inpatient (IN) | payer MEDICAID ==
[2019-03-28] VITALS (9 sets, daily range): BP systolic 109–164; BP diastolic 61–107
[~2019-03-28] VITALS: Ht 170.2 cm; Wt 140.2 kg
[~2019-03-28 02:08] MED LIST changes: +ADVAIR DISKU IN; +CLONIDINE0.3 MG/21; +CYCLOBENZAPR10 MG PO; +OXY1
--- NOTE | 2019-03-28 02:27 | NUR ---
BY WC TO ROOM
[2019-03-28 02:39] LABS: HEMATOCRIT 42.6 % (39.0-50.0); HEMOGLOBIN 12.9 g/dl (14.0-18.0); IMMATURE GRANULOCYTES 0.2 % (0.0-5.0); MEAN CELL VOLUME 93.6 fL CALC (80.0-100.0); MEAN CORPUSCULAR HGB 28.4 pG CALC (26.0-32.0); MEAN CORPUSCULAR HGB CONC 30.3 g/L CALC (32.0-36.0); NEUT# 4.88 thou/uL (1.82-7.42); RED BLOOD COUNT 4.55 mill/uL (4.70-6.10); RED CELL DISTRI WIDTH 17.4 % (11.5-15.5)
[2019-03-28] MEDS ORDERED: CLONIDINE0.2 MG PO (02:40)
[2019-03-28 02:48] LABS: ALBUMIN 3.9 g/dL (3.2-5.0); ALKALINE PHOSPHATASE 75 u/l (38-126); ANION GAP 11 (6-22 (CALC)); BILIRUBIN, TOTAL 0.7 mg/dL (0.0-1.4); BUN 17 mg/dL (9-20); BUN/CREATININE RATIO 14 (12-20 (CALC)); CARBON DIOXIDE 32 mmol/l (22-30); CHLORIDE 103 mmol/l (95-108); CREATININE 1.2 mg/dL (0.7-1.3); GFR > 60 ML/MIN (>=60 (CALC)); GFR FOR AFR.AMER. > 60 ML/MIN (>=60 (CALC)); POTASSIUM 4.2 mmol/l (3.5-5.1); SGOT/AST 31 u/l (17-59); SODIUM 142 mmol/l (137-146); TOTAL PROTEIN 6.9 g/dL (6.3-8.2)
[2019-03-28 03:01] LABS: MYOGLOBIN 92 ng/mL (0 - 121)
--- NOTE | 2019-03-28 03:35 | NUR ---
PT IS W/D NO C/O PAIN NOR SOB HE STATES HE IS 30% BETTER
[2019-03-28 03:40] LABS: URINE BILIRUBIN - DIPSTICK NEGATIVE (NEGATIVE); URINE BLOOD DIPSTICK NEGATIVE (NEGATIVE); URINE COLOR YELLOW; URINE GLUCOSE - DIPSTICK NEGATIVE (NEGATIVE); URINE KETONE NEGATIVE (NEGATIVE); URINE LEUK ESTERASE NEGATIVE (NEGATIVE); URINE PROTEIN - DIPSTICK 100 mg/dL (NEG-TRACE); URINE SPECIFIC GRAVITY 1.015; URINE UROBILINOGEN - DIPSTICK 0.2 E.U./dL (0.2)
[2019-03-28 03:47] LABS: URINE NITRITE - DIPSTICK NEGATIVE (Negative)
[2019-03-28 03:50] LABS: URINE RBC 0-2 RBC/hpf (0-5); URINE SQUAMOUS EPITHELIAL CELL RARE EPI/hpf (0-FEW); URINE WBC 0-2 WBC/hpf (0-5)
--- NOTE | 2019-03-28 04:34 | NUR ---
W/D SKIN NO COUGH NO CONGESTION NO CP.HOB ELEV THROUGHOUT ER STAY AT 45DEGREES NO WHEEZING HAS VOIDED 1400CC YELLOW URINE THIS ER STAY
--- NOTE | 2019-03-28 05:05 | NUR ---
PATIENT ARRIVED AT 0505 VIA STRETCHER.REPORT GIVEN BY JOSÉ RN. RESP LABORED AND SHALLOW, 2L O2 VIA NC. ABD FIRM AND DISTENTED. BILATERAL LOWER EXTREMITIY EDEMA, +3. PLAN OF CARE DISCUSSED. FALL PRECATUIONS IN PLACE. PATIENT IS ALERT AND ORIENTED. ORIENTED TO ROOM, BED, AND CALL LIGHT. ASSESSMENT COMPLETE AT THIS TIME.PATIENT INFORMED TO CALL WT ANY QUESTIONS OR CONCERNS.
--- NOTE | 2019-03-28 05:05 | NUR ---
PT IS A/OX3 W/D SKIN CLEAR JUAN MONZON BILAT NO COUGH NO RODNEY NO CP PHONE REPORT TO NURSE TRISTAN IN ICU
--- NOTE | 2019-03-28 05:10 | NUR ---
PT TRANSPORTED TO ICU VIA STRETCHER O2 AND CARD MONITOR IN IMPROVED STABLE CONDITION
[2019-03-28 06:13] LABS: HEMATOCRIT 43.5 % (39.0-50.0); HEMOGLOBIN 12.8 g/dl (14.0-18.0); IMMATURE GRANULOCYTES 0.4 % (0.0-5.0); MEAN CORPUSCULAR HGB 27.9 pG CALC (26.0-32.0); MEAN CORPUSCULAR HGB CONC 29.4 g/L CALC (32.0-36.0); NEUT# 5.25 thou/uL (1.82-7.42); RED BLOOD COUNT 4.58 mill/uL (4.70-6.10); RED CELL DISTRI WIDTH 17.2 % (11.5-15.5)
[2019-03-28 06:28] LABS: ANION GAP 11 (6-22 (CALC)); BUN 17 mg/dL (9-20); BUN/CREATININE RATIO 14 (12-20 (CALC)); CARBON DIOXIDE 34 mmol/l (22-30); CHLORIDE 101 mmol/l (95-108); CREATININE 1.3 mg/dL (0.7-1.3); GFR 59 ML/MIN (>=60 (CALC)); GFR FOR AFR.AMER. > 60 ML/MIN (>=60 (CALC)); POTASSIUM 4.2 mmol/l (3.5-5.1); SODIUM 142 mmol/l (137-146)
--- NOTE | 2019-03-28 08:15 | NUR ---
REPORT RECIEVED FROM GIOVANNA TRISTAN. PT RESTING IN BED, SHALLOW BREATHING AND SNORING NOTED. PT AWAKENS TO STERNAL CHEST RUB. ASSESSMENT COMPLETED. OXYGEN IN PLACE AT 2L. SOB ON EXERTION NOTED WHEN OUT OF BED. BREAKFAST TRAY REMAINS AT BEDSIDE. PT MEDICATED WITH LASIX IV. WILL CONTINUE TO MONITOR. CALL LIGHT IN REACH.
--- NOTE | 2019-03-28 13:09 | NUR ---
DR BORJA AT BEDSIDE FOR ASSESSMENT AND POC. PT NOTIFIED TO CONTACT FAMILY TO BRING IN CPAP MACHINE FROM HOME. PT VERBALIZES UNDERSTANDING. CALL LIGHT IN REACH.
--- NOTE | 2019-03-28 13:30 | NUR ---
ASSISTED PT UP TO RECLINER CHAIR. PT SET UP FOR PARTIAL BATH AT THIS TIME. TOWELS, WASHCLOTHS, AND NEW GOWN PROVIDED. LINENS CHANGED. WILL CONTINUE TO MONITOR. CALL LIGHT IN REACH.
--- NOTE | 2019-03-28 14:00 | NUR ---
PT NOTIFIED R.T. STAFF THAT HE IS UNABLE TO BRING IN CPAP MACHINE FROM HOME. R.T. WILL SETUP BIPAP AT BEDTIME. PT VERBALIZES UNDERSTANDING. CALL LIGHT IN REACH.
--- NOTE | 2019-03-28 16:00 | NUR ---
PT RESTING IN RECLINER CHAIR WITH EYES CLOSED. PT REMAINS WITH SHALLOW BREATHS BUT NO SOB NOTED. WILL CONTINUE TO MONITOR. CALL LIGHT IN REACH.
--- NOTE | 2019-03-28 19:00 | NUR ---
RECEIVED REPORT FROM AM NURSE. PATIENT SITTING IN RECLINER. PATIENT WITH NO SIGNS OF DISTRESS WILL CONTINUE TO MONITOR.
--- NOTE | 2019-03-28 20:30 | NUR ---
PATIENT BACK IN BED. PATIENT IS ALERT AND ORIENTED X3. NASAL CANNULA. PATIENT WITH NO SIGNS OF PAIN OR DISCOMFORT. VITALS STABLE. ASSESSMENT COMPLETED. PATIENT VOIDED IN URINAL. WILL CONTINUE TO MONITOR PATIENT.
--- NOTE | 2019-03-28 22:00 | NUR ---
PATIENT IN BED RESTING. WINE AND SPIRITS CLERK CALLED TO PLACE PATIENT ON BIPAP. NO OTHER REQUEST AT THIS TIME. VITALS STABLE WILL CONTINUE TO MONITOR.
--- NOTE | 2019-03-28 23:30 | NUR ---
PATIENT HAD COUGHING EPISODE. REQUESTED BIPAP MASK TO BE REMOVED. STATES IT NEEDS TO GET ADJUSTED. [employer] TECHNICAL LEAD SENIOR DEVELOPER NOTIFIED.
[2019-03-29] VITALS: BP 104/64
[2019-03-29 02:00] VITALS: BP 93/57
--- NOTE | 2019-03-29 02:00 | NUR ---
PATIENT MOVED TO CHAIR. PATIENT CURRENTLY SLEEPING IN CHAIR. NO SIGNS OF DISTRESS. WILL CONTINUE TO MONITOR PATIENT
[2019-03-29 04:00] VITALS: BP 95/54
--- NOTE | 2019-03-29 04:00 | NUR ---
PATIENT REMAINS IN CHAIR. PATIENT CONTINUES TO SAT WELL ON NASAL CANNULA. PATIENT VITALS STABLE. NO COMPLAINTS. WILL CONTINUE TO MONITOR PATIENT.
[2019-03-29 05:52] LABS: HEMATOCRIT 43.1 % (39.0-50.0); HEMOGLOBIN 12.6 g/dl (14.0-18.0); IMMATURE GRANULOCYTES 0.1 % (0.0-5.0); MEAN CELL VOLUME 95.8 fL CALC (80.0-100.0); MEAN CORPUSCULAR HGB CONC 29.2 g/L CALC (32.0-36.0); NEUT# 5.75 thou/uL (1.82-7.42); RED BLOOD COUNT 4.5 mill/uL (4.70-6.10)
[2019-03-29 06:00] VITALS: BP 104/71
--- NOTE | 2019-03-29 06:00 | NUR ---
PATIENT REMAINS IN CHAIR. PATIENT ON NASAL CANNULA. VITALS STABLE. NO SIGNS OF DISTRESS. WILL CONTINUE TO MONITOR.
[2019-03-29 06:03] LABS: ANION GAP 13 (6-22 (CALC)); BUN 19 mg/dL (9-20); BUN/CREATININE RATIO 14 (12-20 (CALC)); CARBON DIOXIDE 38 mmol/l (22-30); CHLORIDE 96 mmol/l (95-108); CREATININE 1.4 mg/dL (0.7-1.3); GFR 55 ML/MIN (>=60 (CALC)); GFR FOR AFR.AMER. > 60 ML/MIN (>=60 (CALC)); POTASSIUM 4.8 mmol/l (3.5-5.1); SODIUM 142 mmol/l (137-146)
--- NOTE | 2019-03-29 07:05 | NUR ---
PT REPORT RECIEVED FROM GIOVANNA SOTO. PT SLEEPING. NO S/S OF DISTRESS. CALL LIGHT IN REACH. WILL CONTINUE TO MONITOR.
[2019-03-29 08:00] VITALS: BP 97/82
--- NOTE | 2019-03-29 08:30 | NUR ---
PT A/O X3. RESP SHALLOW. LUNG DIMINISHED. O2 @3L ON PT. BOWEL SOUNDS ACTIVE X4. WEAK RADIAL/PEDAL PULSES. #20 RAC SL; REMOVED DUE TO LEAKING. +1 EDEMA TO BLE; ENCOURAGED ELEVATION. SKIN INTACT. PT DENIES ANY PAIN OR NEEDS. POC DISCUSSED. SAFETY PRECAUTIONS IN PLACE. CALL LIGHT IN REACH. WILL CONTINUE TO MONITOR.
[2019-03-29 09:11] VITALS: BP 97/82
--- NOTE | 2019-03-29 09:11 | NUR ---
PT BLOOD PRESSURE 97/82, PULSE 94. PT HAS SCHEDULE BP MEDS; NOTIFIED MD OF BLOOD PRESSURE. AM BP MED HELD PER MD. WILL CONTINUE TO MONITOR
[2019-03-29] MEDS ORDERED: CARVEDILOL3.125 MG PO (11:37)
--- NOTE | 2019-03-29 11:57 | NUR ---
D/C INSTRUCTIONS DISCUSSED W/ PT. PT STATES UNDERSTANDING. IV REMOVED THIS MORNING; CATHETER INTACT. PT DRESSED; WAITING TO BE TRANSPORTED DOWNSTAIRS.
--- NOTE | 2019-03-29 12:05 | NUR ---
Discharge instructions given. Patient verbalizes understanding of same. Discharged in stable condition via Wheelchair to Home with *Other. All belongings sent with pt.
== END 2019-03-29 12:05 | disposition home or self-care (01) | DRG 291 ==
LOC: ED 02:08 → ED-I 02:37 → ED 04:36 → ICU 04:37
PROVIDERS: Emergency Medicine; ADMIT Internal Medicine; ATTEND Internal Medicine
DX: I13.0 Hypertensive heart and chronic kidney disease with heart failure and stage 1 through stage 4 chronic kidney disease, or unspecified chronic kidney disease (principal); I50.43 Acute on chronic combined systolic (congestive) and diastolic (congestive) heart failure; J96.02 Acute respiratory failure with hypercapnia; N18.3 Chronic kidney disease, stage 3 (moderate); I16.0 Hypertensive urgency; I25.5 Ischemic cardiomyopathy; J44.9 Chronic obstructive pulmonary disease, unspecified; I25.10 Atherosclerotic heart disease of native coronary artery without angina pectoris; G47.33 Obstructive sleep apnea (adult) (pediatric); E78.5 Hyperlipidemia, unspecified; Z91.11 Patient's noncompliance with dietary regimen; Z91.14 Patient's other noncompliance with medication regimen; Z86.73 Personal history of transient ischemic attack (TIA), and cerebral infarction without residual deficits; Z95.810 Presence of automatic (implantable) cardiac defibrillator; Z95.5 Presence of coronary angioplasty implant and graft; Z91.19 Patient's noncompliance with other medical treatment and regimen

== ENCOUNTER 2019-05-07 06:59 | Emergency (ER) | payer OTHER ==
[~2019-05-07] VITALS: Ht 170.2 cm; Wt 140.0 kg
[~2019-05-07 06:59] MED LIST changes: +CLONIDINE0.2 MG PO
[2019-05-07 08:14] LABS: HEMATOCRIT 43.4 % (39.0-50.0); HEMOGLOBIN 13.2 g/dl (14.0-18.0); IMMATURE GRANULOCYTES 0.1 % (0.0-5.0); MEAN CELL VOLUME 92.5 fL CALC (80.0-100.0); MEAN CORPUSCULAR HGB 28.1 pG CALC (26.0-32.0); MEAN CORPUSCULAR HGB CONC 30.4 g/L CALC (32.0-36.0); NEUT# 4.39 thou/uL (1.82-7.42); RED BLOOD COUNT 4.69 mill/uL (4.70-6.10); RED CELL DISTRI WIDTH 17.9 % (11.5-15.5)
[2019-05-07 08:39] LABS: ALBUMIN 4.3 g/dL (3.2-5.0); ALKALINE PHOSPHATASE 78 u/l (38-126); BILIRUBIN, TOTAL 0.9 mg/dL (0.0-1.4); BUN 18 mg/dL (9-20); BUN/CREATININE RATIO 13 (12-20 (CALC)); CHLORIDE 103 mmol/l (95-108); CREATININE 1.4 mg/dL (0.7-1.3); GFR 55 ML/MIN (>=60 (CALC)); GFR FOR AFR.AMER. > 60 ML/MIN (>=60 (CALC)); LIPASE 132 u/l (23-300); POTASSIUM 4.7 mmol/l (3.5-5.1); SGOT/AST 42 u/l (17-59); SODIUM 140 mmol/l (137-146); TOTAL PROTEIN 7.4 g/dL (6.3-8.2)
[2019-05-07 08:43] LABS: ANION GAP 16 (6-22 (CALC)); CARBON DIOXIDE 26 mmol/l (22-30)
[2019-05-07 10:31] VITALS: BP 112/77
== END 2019-05-07 10:41 | disposition home or self-care (01) | DRG 552 ==
LOC: ED 06:59
PROVIDERS: Family Medicine
DX: M54.2 Cervicalgia (principal); M54.5 Low back pain; R07.89 Other chest pain; N18.3 Chronic kidney disease, stage 3 (moderate); I50.9 Heart failure, unspecified; J44.9 Chronic obstructive pulmonary disease, unspecified; I25.5 Ischemic cardiomyopathy; V40.5XXA Car driver injured in collision with pedestrian or animal in traffic accident, initial encounter; Z95.810 Presence of automatic (implantable) cardiac defibrillator; Z95.5 Presence of coronary angioplasty implant and graft

== ENCOUNTER 2019-06-18 19:23 | Inpatient (IN) | payer MEDICAID ==
[~2019-06-18] VITALS: Ht 170.2 cm; Wt 140.6 kg
[~2019-06-18 19:23] MED LIST changes: +PROTONIX40 M2 PO; +TESSALON PERLE100 MG PO
[2019-06-18 20:09] LABS: HEMATOCRIT 39.6 % (39.0-50.0); HEMOGLOBIN 11.7 g/dl (14.0-18.0); IMMATURE GRANULOCYTES 0.3 % (0.0-5.0); MEAN CELL VOLUME 92.1 fL CALC (80.0-100.0); MEAN CORPUSCULAR HGB 27.2 pG CALC (26.0-32.0); MEAN CORPUSCULAR HGB CONC 29.5 g/L CALC (32.0-36.0); NEUT# 4.31 thou/uL (1.82-7.42); RED BLOOD COUNT 4.3 mill/uL (4.70-6.10); RED CELL DISTRI WIDTH 18.3 % (11.5-15.5)
[2019-06-18 20:17] LABS: ALBUMIN 4.3 g/dL (3.2-5.0); BILIRUBIN, TOTAL 1.1 mg/dL (0.0-1.4); CREATININE 1.7 mg/dL (0.7-1.3); POTASSIUM 4.6 mmol/l (3.5-5.1); TOTAL PROTEIN 8.1 g/dL (6.3-8.2)
[2019-06-19 00:56] VITALS: BP 144/99
[2019-06-19 03:07] LABS: URINE BILIRUBIN - DIPSTICK NEGATIVE (NEGATIVE); URINE BLOOD DIPSTICK NEGATIVE (NEGATIVE); URINE COLOR YELLOW; URINE GLUCOSE - DIPSTICK NEGATIVE (NEGATIVE); URINE KETONE NEGATIVE (NEGATIVE); URINE LEUK ESTERASE NEGATIVE (NEGATIVE); URINE NITRITE - DIPSTICK NEGATIVE (Negative); URINE PH 5.5 (4.5-8.0); URINE PROTEIN - DIPSTICK 30 mg/dL (NEG-TRACE); URINE SPECIFIC GRAVITY 1.015; URINE UROBILINOGEN - DIPSTICK 0.2 E.U./dL (0.2)
[2019-06-19 03:13] LABS: BARBITURATES NEGATIVE (NEGATIVE); COCAINE NEGATIVE (NEGATIVE); METHADONE NEGATIVE (NEGATIVE); OXCYCODONE NEGATIVE (NEGATIVE); TETRAHYDROCANNABIONOL NEGATIVE (NEGATIVE); TRICYLIC ANTIDEPRESSANTS NEGATIVE (NEGATIVE); URINE BACTERIA RARE hpf; URINE EPITHELIAL CELLS FEW EPI/hpf (0-FEW)
[2019-06-19 04:00] VITALS: BP 148/87
[2019-06-19 08:29] VITALS: BP 130/90
[2019-06-19 11:00] VITALS: BP 162/94
[2019-06-19 14:45] VITALS: BP 147/94
[2019-06-19 16:07] LABS: HEMATOCRIT 41.6 % (39.0-50.0); HEMOGLOBIN 12.1 g/dl (14.0-18.0); IMMATURE GRANULOCYTES 0.6 % (0.0-5.0); MEAN CORPUSCULAR HGB 27.6 pG CALC (26.0-32.0); MEAN CORPUSCULAR HGB CONC 29.1 g/L CALC (32.0-36.0); NEUT# 3.61 thou/uL (1.82-7.42); RED BLOOD COUNT 4.38 mill/uL (4.70-6.10); RED CELL DISTRI WIDTH 18.6 % (11.5-15.5)
[2019-06-19 16:16] LABS: ANION GAP 15 (6-22 (CALC)); BUN 22 mg/dL (9-20); BUN/CREATININE RATIO 14 (12-20 (CALC)); CARBON DIOXIDE 30 mmol/l (22-30); CHLORIDE 98 mmol/l (95-108); CREATININE 1.5 mg/dL (0.7-1.3); GFR 50 ML/MIN (>=60 (CALC)); GFR FOR AFR.AMER. > 60 ML/MIN (>=60 (CALC)); POTASSIUM 4.6 mmol/l (3.5-5.1); SODIUM 138 mmol/l (137-146)
[2019-06-19 16:19] LABS: MAGNESIUM 1.6 mg/dL (1.6-2.3)
[2019-06-19 19:20] VITALS: BP 116/78
[2019-06-20 00:15] VITALS: BP 130/80
[2019-06-20 04:10] VITALS: BP 153/88
[2019-06-20 07:43] VITALS: BP 124/89
[2019-06-20 10:40] VITALS: BP 132/82
[2019-06-20 15:20] VITALS: BP 131/89
[2019-06-20 16:04] VITALS: BP 131/89
== END 2019-06-20 18:30 | disposition home or self-care (01) | DRG 292 ==
LOC: ED 19:23 → ED-I 22:06 → ED 22:32 → ICU 22:33 → MS2 22:33
PROVIDERS: Emergency Medicine; Nurse Practitioner Family; ADMIT Internal Medicine; ATTEND Internal Medicine
DX: I50.23 Acute on chronic systolic (congestive) heart failure (principal); Z68.42 Body mass index [BMI] 45.0-49.9, adult; I42.0 Dilated cardiomyopathy; R55 Syncope and collapse; I25.5 Ischemic cardiomyopathy; I25.10 Atherosclerotic heart disease of native coronary artery without angina pectoris; J44.9 Chronic obstructive pulmonary disease, unspecified; N18.3 Chronic kidney disease, stage 3 (moderate); E66.01 Morbid (severe) obesity due to excess calories; E78.5 Hyperlipidemia, unspecified; G47.33 Obstructive sleep apnea (adult) (pediatric); Z95.810 Presence of automatic (implantable) cardiac defibrillator; Z86.73 Personal history of transient ischemic attack (TIA), and cerebral infarction without residual deficits; Z95.5 Presence of coronary angioplasty implant and graft; Z99.81 Dependence on supplemental oxygen

== ENCOUNTER 2019-07-03 15:07 | Observation (INO) | payer MEDICAID ==
[~2019-07-03] VITALS: Ht 170.2 cm; Wt 144.0 kg
[2019-07-03 15:44] LABS: HEMATOCRIT 39.7 % (39.0-50.0); IMMATURE GRANULOCYTES 0.3 % (0.0-5.0); MEAN CELL VOLUME 90.4 fL CALC (80.0-100.0); MEAN CORPUSCULAR HGB 27.3 pG CALC (26.0-32.0); MEAN CORPUSCULAR HGB CONC 30.2 g/L CALC (32.0-36.0); NEUT# 3.93 thou/uL (1.82-7.42); RED BLOOD COUNT 4.39 mill/uL (4.70-6.10)
[2019-07-03 16:04] LABS: ACT PARTIAL THROMBO TIME 26.4 SECONDS (20.0-32.5); INTERNATIONAL NORMALIZED RATIO 1.2 RATIO (0.7-1.3); PROTHROMBIN TIME 12.6 SECONDS (9.0-12.5)
[2019-07-03 16:07] LABS: ALBUMIN 4.2 g/dL (3.2-5.0); ALKALINE PHOSPHATASE 71 u/l (38-126); ANION GAP 16 (6-22 (CALC)); BUN 23 mg/dL (9-20); BUN/CREATININE RATIO 15 (12-20 (CALC)); CARBON DIOXIDE 27 mmol/l (22-30); CHLORIDE 101 mmol/l (95-108); CREATININE 1.5 mg/dL (0.7-1.3); GFR 50 ML/MIN (>=60 (CALC)); GFR FOR AFR.AMER. > 60 ML/MIN (>=60 (CALC)); MAGNESIUM 1.6 mg/dL (1.6-2.3); POTASSIUM 4.9 mmol/l (3.5-5.1); SGOT/AST 41 u/l (17-59); SODIUM 139 mmol/l (137-146); TOTAL PROTEIN 7.8 g/dL (6.3-8.2)
[2019-07-03 16:08] LABS: BILIRUBIN, TOTAL 1.9 mg/dL (0.0-1.4)
[2019-07-03] MEDS ORDERED: LASIX 40 MG TAB40 MG PO (16:12)
[2019-07-03] MEDS ORDERED: ALBUTEROL SUL0.083 % IN (16:13)
[2019-07-03 16:44] LABS: URINE BILIRUBIN - DIPSTICK NEGATIVE (NEGATIVE); URINE BLOOD DIPSTICK NEGATIVE (NEGATIVE); URINE COLOR YELLOW; URINE GLUCOSE - DIPSTICK NEGATIVE (NEGATIVE); URINE KETONE NEGATIVE (NEGATIVE); URINE LEUK ESTERASE NEGATIVE (NEGATIVE); URINE NITRITE - DIPSTICK NEGATIVE (Negative); URINE PROTEIN - DIPSTICK 100 mg/dL (NEG-TRACE)
[2019-07-03 16:45] LABS: URINE SQUAMOUS EPITHELIAL CELL FEW EPI/hpf (0-FEW)
[2019-07-03 20:36] VITALS: BP 168/112
[2019-07-03 20:53] LABS: HEMATOCRIT 43.9 % (39.0-50.0); HEMOGLOBIN 12.7 g/dl (14.0-18.0); IMMATURE GRANULOCYTES 0.3 % (0.0-5.0); MEAN CELL VOLUME 91.8 fL CALC (80.0-100.0); MEAN CORPUSCULAR HGB 26.6 pG CALC (26.0-32.0); MEAN CORPUSCULAR HGB CONC 28.9 g/L CALC (32.0-36.0); NEUT# 6.1 thou/uL (1.82-7.42); RED BLOOD COUNT 4.78 mill/uL (4.70-6.10); RED CELL DISTRI WIDTH 18.1 % (11.5-15.5)
[2019-07-03 21:29] VITALS: BP 150/83
[2019-07-04] VITALS (8 sets, daily range): BP systolic 113–180; BP diastolic 66–112
[2019-07-04 05:53] LABS: HEMOGLOBIN 12.8 g/dl (14.0-18.0); IMMATURE GRANULOCYTES 0.7 % (0.0-5.0); MEAN CELL VOLUME 89.4 fL CALC (80.0-100.0); MEAN CORPUSCULAR HGB 27.2 pG CALC (26.0-32.0); MEAN CORPUSCULAR HGB CONC 30.5 g/L CALC (32.0-36.0); NEUT# 6.21 thou/uL (1.82-7.42); RED BLOOD COUNT 4.7 mill/uL (4.70-6.10); RED CELL DISTRI WIDTH 18.5 % (11.5-15.5)
[2019-07-04 06:10] LABS: ALBUMIN 4.2 g/dL (3.2-5.0); ALKALINE PHOSPHATASE 79 u/l (38-126); ANION GAP 17 (6-22 (CALC)); BILIRUBIN, TOTAL 1.4 mg/dL (0.0-1.4); BUN 24 mg/dL (9-20); BUN/CREATININE RATIO 16 (12-20 (CALC)); CARBON DIOXIDE 28 mmol/l (22-30); CHLORIDE 97 mmol/l (95-108); CREATININE 1.5 mg/dL (0.7-1.3); GFR 50 ML/MIN (>=60 (CALC)); GFR FOR AFR.AMER. > 60 ML/MIN (>=60 (CALC)); SGOT/AST 28 u/l (17-59); SODIUM 138 mmol/l (137-146); TOTAL PROTEIN 7.8 g/dL (6.3-8.2)
[2019-07-05] VITALS (8 sets, daily range): BP systolic 101–154; BP diastolic 66–86
[2019-07-05 05:26] LABS: HEMATOCRIT 41.5 % (39.0-50.0); HEMOGLOBIN 12.5 g/dl (14.0-18.0); IMMATURE GRANULOCYTES 0.4 % (0.0-5.0); MEAN CELL VOLUME 90.4 fL CALC (80.0-100.0); MEAN CORPUSCULAR HGB 27.2 pG CALC (26.0-32.0); MEAN CORPUSCULAR HGB CONC 30.1 g/L CALC (32.0-36.0); NEUT# 13.71 thou/uL (1.82-7.42); RED BLOOD COUNT 4.59 mill/uL (4.70-6.10); RED CELL DISTRI WIDTH 18.2 % (11.5-15.5)
[2019-07-05 05:51] LABS: BUN 31 mg/dL (9-20); BUN/CREATININE RATIO 21 (12-20 (CALC)); CARBON DIOXIDE 31 mmol/l (22-30); CHLORIDE 94 mmol/l (95-108); CREATININE 1.5 mg/dL (0.7-1.3); GFR 50 ML/MIN (>=60 (CALC)); GFR FOR AFR.AMER. > 60 ML/MIN (>=60 (CALC)); MAGNESIUM 1.8 mg/dL (1.6-2.3); SODIUM 136 mmol/l (137-146)
[2019-07-05 05:56] LABS: ANION GAP 16 (6-22 (CALC)); POTASSIUM 5.3 mmol/l (3.5-5.1)
[2019-07-06 03:45] VITALS: BP 138/58
[2019-07-06 04:26] LABS: ANION GAP 15 (6-22 (CALC)); BUN 35 mg/dL (9-20); BUN/CREATININE RATIO 24 (12-20 (CALC)); CARBON DIOXIDE 32 mmol/l (22-30); CHLORIDE 93 mmol/l (95-108); CREATININE 1.5 mg/dL (0.7-1.3); GFR 50 ML/MIN (>=60 (CALC)); GFR FOR AFR.AMER. > 60 ML/MIN (>=60 (CALC)); MAGNESIUM 1.8 mg/dL (1.6-2.3); POTASSIUM 4.9 mmol/l (3.5-5.1); SODIUM 136 mmol/l (137-146)
[2019-07-06 04:37] LABS: HEMATOCRIT 40.7 % (39.0-50.0); HEMOGLOBIN 12.3 g/dl (14.0-18.0); IMMATURE GRANULOCYTES 0.4 % (0.0-5.0); MEAN CELL VOLUME 90.6 fL CALC (80.0-100.0); MEAN CORPUSCULAR HGB 27.4 pG CALC (26.0-32.0); MEAN CORPUSCULAR HGB CONC 30.2 g/L CALC (32.0-36.0); NEUT# 14.01 thou/uL (1.82-7.42); RED BLOOD COUNT 4.49 mill/uL (4.70-6.10); RED CELL DISTRI WIDTH 18.1 % (11.5-15.5)
[2019-07-06 08:11] VITALS: BP 148/78
[2019-07-06 11:01] VITALS: BP 122/71
[2019-07-06] MEDS ORDERED: PREDNISONE10 MG PO (12:54)
== END 2019-07-06 13:58 | disposition home or self-care (01) ==
LOC: ED 15:07 → ED-I 16:10 → ED 16:10 → ED-I 16:57 → ED 17:07 → MS2 17:08
PROVIDERS: Nurse Practitioner Family; ADMIT Internal Medicine; ATTEND Internal Medicine
DX: I13.0 Hypertensive heart and chronic kidney disease with heart failure and stage 1 through stage 4 chronic kidney disease, or unspecified chronic kidney disease (principal); I50.43 Acute on chronic combined systolic (congestive) and diastolic (congestive) heart failure; J44.1 Chronic obstructive pulmonary disease with (acute) exacerbation; N18.3 Chronic kidney disease, stage 3 (moderate); I25.5 Ischemic cardiomyopathy; I42.0 Dilated cardiomyopathy; I25.10 Atherosclerotic heart disease of native coronary artery without angina pectoris; D63.1 Anemia in chronic kidney disease; G47.33 Obstructive sleep apnea (adult) (pediatric); Z95.810 Presence of automatic (implantable) cardiac defibrillator; Z95.5 Presence of coronary angioplasty implant and graft; Z86.73 Personal history of transient ischemic attack (TIA), and cerebral infarction without residual deficits; E66.01 Morbid (severe) obesity due to excess calories; Z68.42 Body mass index [BMI] 45.0-49.9, adult; Z91.11 Patient's noncompliance with dietary regimen; Z99.81 Dependence on supplemental oxygen
CPT/HCPCS: G0378; J1650

== ENCOUNTER 2019-07-17 22:09 | Observation (INO) | payer MEDICAID ==
[~2019-07-17] VITALS: Ht 170.2 cm; Wt 142.1 kg
[~2019-07-17 22:09] MED LIST changes: +ALBUTEROL SUL0.083 % IN
[2019-07-17 23:33] LABS: HEMATOCRIT 37.8 % (39.0-50.0); HEMOGLOBIN 11.6 g/dl (14.0-18.0); IMMATURE GRANULOCYTES 0.5 % (0.0-5.0); MEAN CELL VOLUME 89.6 fL CALC (80.0-100.0); MEAN CORPUSCULAR HGB 27.5 pG CALC (26.0-32.0); MEAN CORPUSCULAR HGB CONC 30.7 g/L CALC (32.0-36.0); NEUT# 6.94 thou/uL (1.82-7.42); RED BLOOD COUNT 4.22 mill/uL (4.70-6.10); RED CELL DISTRI WIDTH 19.8 % (11.5-15.5)
[2019-07-17 23:46] LABS: BILIRUBIN, TOTAL 1.4 mg/dL (0.0-1.4); CREATININE 1.7 mg/dL (0.7-1.3); POTASSIUM 4.1 mmol/l (3.5-5.1); TOTAL PROTEIN 7.3 g/dL (6.3-8.2)
[2019-07-18] VITALS (7 sets, daily range): BP systolic 132–158; BP diastolic 58–90
[2019-07-18 00:17] LABS: URINE BILIRUBIN - DIPSTICK NEGATIVE (NEGATIVE); URINE BLOOD DIPSTICK TRACE-INTACT (NEGATIVE); URINE COLOR YELLOW; URINE GLUCOSE - DIPSTICK NEGATIVE (NEGATIVE); URINE KETONE NEGATIVE (NEGATIVE); URINE LEUK ESTERASE NEGATIVE (NEGATIVE); URINE NITRITE - DIPSTICK NEGATIVE (Negative); URINE PROTEIN - DIPSTICK 100 mg/dL (NEG-TRACE); URINE SPECIFIC GRAVITY 1.025
[2019-07-18 00:25] LABS: URINE BACTERIA FEW hpf; URINE EPITHELIAL CELLS FEW EPI/hpf (0-FEW)
[2019-07-19 03:30] VITALS: BP 138/78
[2019-07-19 05:21] LABS: HEMATOCRIT 39.8 % (39.0-50.0); HEMOGLOBIN 11.9 g/dl (14.0-18.0); MEAN CELL VOLUME 91.5 fL CALC (80.0-100.0); MEAN CORPUSCULAR HGB 27.4 pG CALC (26.0-32.0); MEAN CORPUSCULAR HGB CONC 29.9 g/L CALC (32.0-36.0); RED BLOOD COUNT 4.35 mill/uL (4.70-6.10); RED CELL DISTRI WIDTH 19.5 % (11.5-15.5)
[2019-07-19 05:51] LABS: CREATININE 1.6 mg/dL (0.7-1.3); MAGNESIUM 1.4 mg/dL (1.6-2.3); POTASSIUM 4.4 mmol/l (3.5-5.1)
[2019-07-19 07:30] VITALS: BP 138/76
[2019-07-19 10:57] VITALS: BP 131/87
[2019-07-19 16:55] VITALS: BP 126/87
== END 2019-07-19 18:30 | disposition home or self-care (01) ==
LOC: ED 22:09 → ED-I 07-18 02:20 → ED 07-18 02:49 → ED-I 07-18 02:50 → MS2 07-18 02:50 → ED-I 07-18 02:51 → ICU 07-18 14:00 → MS2 07-18 14:20
PROVIDERS: Emergency Medicine; Nurse Practitioner Family; ADMIT Internal Medicine; ATTEND Internal Medicine
DX: I13.0 Hypertensive heart and chronic kidney disease with heart failure and stage 1 through stage 4 chronic kidney disease, or unspecified chronic kidney disease (principal); I50.43 Acute on chronic combined systolic (congestive) and diastolic (congestive) heart failure; N18.3 Chronic kidney disease, stage 3 (moderate); I25.10 Atherosclerotic heart disease of native coronary artery without angina pectoris; F17.200 Nicotine dependence, unspecified, uncomplicated; I25.5 Ischemic cardiomyopathy; I42.0 Dilated cardiomyopathy; E66.01 Morbid (severe) obesity due to excess calories; J44.9 Chronic obstructive pulmonary disease, unspecified; E78.5 Hyperlipidemia, unspecified; G47.30 Sleep apnea, unspecified; Z95.810 Presence of automatic (implantable) cardiac defibrillator; Z95.5 Presence of coronary angioplasty implant and graft; Z99.81 Dependence on supplemental oxygen; Z86.73 Personal history of transient ischemic attack (TIA), and cerebral infarction without residual deficits; Z68.42 Body mass index [BMI] 45.0-49.9, adult; Z91.19 Patient's noncompliance with other medical treatment and regimen
CPT/HCPCS: G0378

== ENCOUNTER 2019-07-28 01:05 | Inpatient (IN) | payer BC ==
[~2019-07-28] VITALS: Ht 170.2 cm; Wt 134.7 kg
[2019-07-28] VITALS (21 sets, daily range): BP systolic 120–206; BP diastolic 66–125
--- NOTE | 2019-07-28 01:05 | NUR ---
PT TO ROOM 9 BY EMS
[2019-07-28 01:37] LABS: HEMATOCRIT 39.9 % (39.0-50.0); IMMATURE GRANULOCYTES 0.4 % (0.0-5.0); MEAN CELL VOLUME 92.6 fL CALC (80.0-100.0); MEAN CORPUSCULAR HGB 27.8 pG CALC (26.0-32.0); MEAN CORPUSCULAR HGB CONC 30.1 g/L CALC (32.0-36.0); NEUT# 5.01 thou/uL (1.82-7.42); RED BLOOD COUNT 4.31 mill/uL (4.70-6.10)
--- NOTE | 2019-07-28 01:41 | NUR ---
BREATHING TREATMENT GIVEN. BREATHING TECH. FOR GOOD DEPOSITION TO THE LUNGS.
[2019-07-28 01:49] LABS: ALBUMIN 4.2 g/dL (3.2-5.0); ALKALINE PHOSPHATASE 88 u/l (38-126); BILIRUBIN, TOTAL 1.5 mg/dL (0.0-1.4); BUN 26 mg/dL (9-20); BUN/CREATININE RATIO 17 (12-20 (CALC)); CHLORIDE 93 mmol/l (95-108); CREATININE 1.5 mg/dL (0.7-1.3); GFR 50 ML/MIN (>=60 (CALC)); GFR FOR AFR.AMER. > 60 ML/MIN (>=60 (CALC)); POTASSIUM 3.9 mmol/l (3.5-5.1); SGOT/AST 43 u/l (17-59); SODIUM 138 mmol/l (137-146); TOTAL PROTEIN 7.5 g/dL (6.3-8.2)
[2019-07-28 01:58] LABS: ANION GAP 12 (6-22 (CALC)); CARBON DIOXIDE 37 mmol/l (22-30)
--- NOTE | 2019-07-28 02:00 | NUR ---
TREATMENT COMPLETED. PT UP TO BS TO VOID (400 CC'S) SAT ON 2 LPM NC DOWN TO 82 %. NOTIFIED. O2 INCREASED TO 4 LPM WHILE WAITING FOR RT.
--- NOTE | 2019-07-28 02:30 | NUR ---
PT PLACED ON BIPAP
--- NOTE | 2019-07-28 02:35 | NUR ---
MD DECIDED TO PLACE HIM ON BIPAP AFTER ABG RESULT.
--- NOTE | 2019-07-28 05:00 | NUR ---
SEE DOWNTIME NOTES.
--- NOTE | 2019-07-28 05:05 | NUR ---
REPORT TO ALONSO HEREDIA, ICU.
--- NOTE | 2019-07-28 05:22 | NUR ---
TO FLOOR VIA STRETCHER/O2 @ 2PM NC. WAS REMOVED FROM BIPAP BY RT TO TAKE TO FLOOR. PT SLEEPING. SATS HIGH 80'S.
--- NOTE | 2019-07-28 05:26 | NUR ---
PT ARRIVED TO UNIT VIA STRETCHER WITH ER STAFF; ALERT AND ORIENTED X 4; ON OXYGEN 2L VIA NC; REPORT FROM GIOVANNA MELLO STATES THAT RT DETERMINED PT'S RESPIRATORY STATUS WAS STABLE ENOUGH TO BE TRANSPORTED VIA NC. PT AMBULATED TO BED INDEPENDENTLY WITH STAND BY ASSIST; SOME SOB NOTED ON EXERTION. PT DENIES PAIN. ORIENTED TO ROOM AND CALL LIGHT SYSTEM. HYPERTENSIVE. PLAN OF CARE DISCUSSED. PT ENCOURAGED TO VERBALIZE CONCERNS. STATES UNDERSTANDING. SAFETY MEASURES IN PLACE. CALL LIGHT WITHIN REACH.
--- NOTE | 2019-07-28 05:50 | NUR ---
RT AT BEDSIDE TO CONNECT BIPAP.
--- NOTE | 2019-07-28 08:00 | NUR ---
PT IN SEMI BALDERAS POSITION; RESTING WITH EYES CLOSED; BIPAP IN PLACE; PT SR ON MONITOR; CALL SAMPSON WITHIN REACH; WILL CONTINUE TO MONITOR.
--- NOTE | 2019-07-28 09:00 | NUR ---
DR. CRAMER IN TO SEE PT; PLAN OF CARE DISCUSSED;
--- NOTE | 2019-07-28 09:34 | NUR ---
PT TAKEN OFF BIPAP AND PLACED ON 2L NC. SPO2 IS 96%. PT IS AWAKE AND ALERT.
--- NOTE | 2019-07-28 12:35 | NUR ---
PT RESTING WITH EYES CLOSED; AROUSED EASILY TO VERBAL STIMULI; NO COMPLAINTS OR CONCERNS VOICED; CALL SAMPSON WITHIN REACH; WILL CONTINUE TO MONITOR
--- NOTE | 2019-07-28 14:30 | NUR ---
FAMILY IN TO VISIT PT; NO COMPLAINTS VOICED; CALL SAMPSON WITHIN REACH; WILL CONTINUE TO MONITOR.
--- NOTE | 2019-07-28 16:01 | NUR ---
PT SITTING ON SIDE OF BED; REQUESTING SNACK PROVIDED; NO COMPLAINTS VOICED; CALL SAMPSON WITHIN REACH; WILL CONTINUE TO MONITOR.
--- NOTE | 2019-07-28 19:55 | NUR ---
PATIENT SITS ON SIDE OF BED. ON NC 2L/MIN. SOB WITH EXERTION. ALERT, ORIENTED X4. HEAD TOT OE NURSING ASSESSMENT PERFORMED. POC FOR TONIGHT DISCUSSED. RAC 20G IV INTACT SALINE LOCKED. DENIES PAIN. VOIDS IN URINAL. DID HAVE HIS SIGNIFICANT OTHER BRING HIM DINNER, WHICH I HAD EDUCTAED HIM ON HIS CARDIAC DIET. SELF REPSOITIONS. CALL LIGHT WITHIN REACH.
--- NOTE | 2019-07-28 21:25 | NUR ---
PATIENT ABLE TO TOLERATE BEDTIME PILLS. EDUCATED ON WATCHING HIS FLUID INTACKE FOR HIS CHF EXC. PATIENT UNDERSTANDS. HE HAD REQUESTED A CUP OF WATER AND A CUP OF COFFEE. CALL LIGHT WITHIN REACH.
[2019-07-29] VITALS (13 sets, daily range): BP systolic 107–148; BP diastolic 60–89
--- NOTE | 2019-07-29 01:44 | NUR ---
PT COUGHING, TOOK BIPAP OFF, NOW ON 2L/MIN NC, SATS 94%. SITS UP, REQUESTS ICE.
--- NOTE | 2019-07-29 01:57 | NUR ---
DR BORJA CALLED AND NOTIFIED OF PATIENT'S LABORED BREATHING AND GRUNTING, BP LOW WELL. NEW ORDERS RECEIVED.
--- NOTE | 2019-07-29 03:07 | NUR ---
PT REMINDED HE NEEDS TO BE PLACED BACK ON BIPAP, AGREES AND BIPAP BACK ON. NO ACUTE DISTRESS SHOWN. CALL LIGHT WITHIN REACH.
--- NOTE | 2019-07-29 05:49 | NUR ---
PT LAYS WITH HOB 30 DEGREES. ON BIPAP, O2 40%. NO ACUTE DISTRESS SHOWN. CALL LIGHT WITHIN REACH.
[2019-07-29 05:57] LABS: HEMATOCRIT 39.1 % (39.0-50.0); HEMOGLOBIN 11.8 g/dl (14.0-18.0); IMMATURE GRANULOCYTES 0.6 % (0.0-5.0); MEAN CELL VOLUME 93.8 fL CALC (80.0-100.0); MEAN CORPUSCULAR HGB 28.3 pG CALC (26.0-32.0); MEAN CORPUSCULAR HGB CONC 30.2 g/L CALC (32.0-36.0); NEUT# 11.35 thou/uL (1.82-7.42); RED BLOOD COUNT 4.17 mill/uL (4.70-6.10)
--- NOTE | 2019-07-29 06:10 | NUR ---
PT LAYS WITH HOB ABOUT 45 DEGREES. ON BIPAP. RESTS WITH EYES CLOSED. NO ACUTE DISTRESS SHOWN. CALL LIGHT WITHIN REACH.
[2019-07-29 06:12] LABS: CREATININE 1.6 mg/dL (0.7-1.3)
[2019-07-29 06:24] LABS: POTASSIUM 5.4 mmol/l (3.5-5.1)
--- NOTE | 2019-07-29 07:30 | NUR ---
PT ALERT AND ORIENTED, SITTING UP IN BED, OFFERS NO NEW COMPLAINTS, AM ASSESSMENT COMPLETED SEE INTERVENTIONS, SKIN WARM AND DRY, NO BREAKDOWN NOTED, BI PAP OFF THIS AM TOLERATED DURING THE NIGHT, OFF FOR SHORT PERIOD OF TIME PER REPORT, PT STATES HE WEARS IT AT HOME AND THAT HE IS "MOSTLY COMPLIANT" URINAL WITHIN REACH RELATED TO PLANNED/ORDERED DIURETIC, O2 ON AT 2L VIA NC. PT STATES THAT HE WEARS O2 AT HOME WELL. SAFETY MEASURES REINFORCED, AND CALL SAMPSON WITHIN REACH. WILL CONTINUE TO MONITOR.
--- NOTE | 2019-07-29 07:52 | NUR ---
BIPAP STANDBY. PLACED ON 2L NC.
--- NOTE | 2019-07-29 08:15 | NUR ---
SET UP ASSIST PROVIDED EARLIER FOR AM MEAL WITH GOOD PO INTAKE. STATES THAT HE WATCHES HIS FLUID INTAKE AT HOME. CALL SAMPSON WITHIN REACH, WILL CONTINUE TO MONITOR.
[2019-07-29] MEDS ORDERED: NEBULIZER COMPRESSOR (08:28)
[2019-07-29] MEDS ORDERED: Levaquin PO (08:30)
[2019-07-29] MEDS ORDERED: PREDNISONE10 MG PO (08:30)
--- NOTE | 2019-07-29 08:53 | NUR ---
TO RADIOLOGY ON O2 FOR CXR 2V ORDERED
--- NOTE | 2019-07-29 09:05 | NUR ---
PT BACK FROM RADIOLOGY, TOLERATED WELL.
--- NOTE | 2019-07-29 10:10 | NUR ---
PT SITTING UP ON EDGE OF BED PLAYING ON TELEPHONE, OFFERS NO NEW COMPLAINTS, CALL SAMPSON WITHIN REACH. AWARE OF PLANNED D/C TODAY AFTER XRAY RESULTS REVIEWED BY
--- NOTE | 2019-07-29 11:30 | NUR ---
Set up assist provided for afternoon meal.
--- NOTE | 2019-07-29 12:15 | NUR ---
pt aware of planned D/C after ABT complete, call perez within reach.
--- NOTE | 2019-07-29 13:28 | NUR ---
IV ABT complete and pt tolerated well, aware of planned d/c, call perez within reach.
--- NOTE | 2019-07-29 13:44 | NUR ---
Discharge instructions given. Patient verbalizes understanding of same. Discharged in stable condition via Wheelchair to Home with family. All belongings sent with pt. LEFT WITH D/C INSTRUCTIONS AND SCRIPTS IN HAND.
== END 2019-07-29 13:45 | disposition home or self-care (01) | DRG 291 ==
LOC: ED 01:05 → ED-I 02:20 → ED 02:33 → ICU 02:34 → ED-I 02:34 → ICU 05:26
PROVIDERS: ADMIT Internal Medicine; ATTEND Internal Medicine
PROC: 5A09457 Assistance with Respiratory Ventilation, 24-96 Consecutive Hours, Continuous Positive Airway Pressure (ICD-10-PCS; principal; 2019-07-28)
DX: I13.0 Hypertensive heart and chronic kidney disease with heart failure and stage 1 through stage 4 chronic kidney disease, or unspecified chronic kidney disease (principal); I50.43 Acute on chronic combined systolic (congestive) and diastolic (congestive) heart failure; J96.22 Acute and chronic respiratory failure with hypercapnia; Z68.42 Body mass index [BMI] 45.0-49.9, adult; I16.0 Hypertensive urgency; N18.3 Chronic kidney disease, stage 3 (moderate); J44.9 Chronic obstructive pulmonary disease, unspecified; I25.10 Atherosclerotic heart disease of native coronary artery without angina pectoris; I25.5 Ischemic cardiomyopathy; E66.01 Morbid (severe) obesity due to excess calories; G47.33 Obstructive sleep apnea (adult) (pediatric); E87.5 Hyperkalemia; T38.0X5A Adverse effect of glucocorticoids and synthetic analogues, initial encounter; Z95.5 Presence of coronary angioplasty implant and graft; Z86.73 Personal history of transient ischemic attack (TIA), and cerebral infarction without residual deficits; Z95.810 Presence of automatic (implantable) cardiac defibrillator

== ENCOUNTER 2019-08-25 | Emergency (ER) | payer BC ==
[~2019-08-25] MED LIST changes: +Levaquin PO
[2019-08-25 19:11] LABS: HEMATOCRIT 40.9 % (39.0-50.0); HEMOGLOBIN 12.4 g/dl (14.0-18.0); IMMATURE GRANULOCYTES 0.4 % (0.0-5.0); MEAN CORPUSCULAR HGB 28.5 pG CALC (26.0-32.0); MEAN CORPUSCULAR HGB CONC 30.3 g/L CALC (32.0-36.0); NEUT# 4.84 thou/uL (1.82-7.42); RED BLOOD COUNT 4.35 mill/uL (4.70-6.10); RED CELL DISTRI WIDTH 20.1 % (11.5-15.5)
[2019-08-25 19:30] LABS: BUN 14 mg/dL (9-20); BUN/CREATININE RATIO 13 (12-20 (CALC)); CHLORIDE 101 mmol/l (95-108); CREATININE 1.1 mg/dL (0.7-1.3); GFR > 60 ML/MIN (>=60 (CALC)); GFR FOR AFR.AMER. > 60 ML/MIN (>=60 (CALC)); SODIUM 138 mmol/l (137-146)
[2019-08-25 19:31] LABS: ANION GAP 15 (6-22 (CALC)); CARBON DIOXIDE 26 mmol/l (22-30)
== END 2019-08-25 21:46 | disposition home or self-care (01) | DRG 556 ==
PROVIDERS: Family Medicine
DX: M25.572 Pain in left ankle and joints of left foot (principal); I13.0 Hypertensive heart and chronic kidney disease with heart failure and stage 1 through stage 4 chronic kidney disease, or unspecified chronic kidney disease; I50.9 Heart failure, unspecified; N18.3 Chronic kidney disease, stage 3 (moderate); J44.9 Chronic obstructive pulmonary disease, unspecified; W10.9XXA Fall (on) (from) unspecified stairs and steps, initial encounter; Y92.009 Unspecified place in unspecified non-institutional (private) residence as the place of occurrence of the external cause; Z99.81 Dependence on supplemental oxygen; Z95.810 Presence of automatic (implantable) cardiac defibrillator; Z95.5 Presence of coronary angioplasty implant and graft
CPT/HCPCS: Q9967

== ENCOUNTER 2019-08-29 20:02 | Inpatient (IN) | payer BC ==
[~2019-08-29] VITALS: Ht 170.2 cm; Wt 137.3 kg
[2019-08-29 21:20] LABS: ALKALINE PHOSPHATASE 82 u/l (38-126); ANION GAP 13 (6-22 (CALC)); BUN 15 mg/dL (9-20); BUN/CREATININE RATIO 14 (12-20 (CALC)); CARBON DIOXIDE 28 mmol/l (22-30); CHLORIDE 102 mmol/l (95-108); GFR > 60 ML/MIN (>=60 (CALC)); GFR FOR AFR.AMER. > 60 ML/MIN (>=60 (CALC)); POTASSIUM 4.3 mmol/l (3.5-5.1); SGOT/AST 31 u/l (17-59); SODIUM 139 mmol/l (137-146); TOTAL PROTEIN 7.5 g/dL (6.3-8.2)
[2019-08-29 21:21] LABS: HEMATOCRIT 39.2 % (39.0-50.0); HEMOGLOBIN 11.9 g/dl (14.0-18.0); IMMATURE GRANULOCYTES 0.3 % (0.0-5.0); MEAN CELL VOLUME 93.3 fL CALC (80.0-100.0); MEAN CORPUSCULAR HGB 28.3 pG CALC (26.0-32.0); MEAN CORPUSCULAR HGB CONC 30.4 g/L CALC (32.0-36.0); NEUT# 5.12 thou/uL (1.82-7.42); RED BLOOD COUNT 4.2 mill/uL (4.70-6.10); RED CELL DISTRI WIDTH 20.3 % (11.5-15.5)
[2019-08-29 21:23] LABS: INTERNATIONAL NORMALIZED RATIO 1.1 RATIO (0.7-1.3); PROTHROMBIN TIME 11.2 SECONDS (9.0-12.5)
[2019-08-29 21:52] LABS: BARBITURATES NEGATIVE (NEGATIVE); COCAINE NEGATIVE (NEGATIVE); METHADONE NEGATIVE (NEGATIVE); OXCYCODONE NEGATIVE (NEGATIVE); TETRAHYDROCANNABIONOL NEGATIVE (NEGATIVE); TRICYLIC ANTIDEPRESSANTS NEGATIVE (NEGATIVE)
[2019-08-30 04:05] VITALS: BP 156/81
[2019-08-30 05:48] LABS: HEMATOCRIT 41.3 % (39.0-50.0); HEMOGLOBIN 12.4 g/dl (14.0-18.0); IMMATURE GRANULOCYTES 0.3 % (0.0-5.0); MEAN CELL VOLUME 94.1 fL CALC (80.0-100.0); MEAN CORPUSCULAR HGB 28.2 pG CALC (26.0-32.0); NEUT# 6.4 thou/uL (1.82-7.42); RED BLOOD COUNT 4.39 mill/uL (4.70-6.10); RED CELL DISTRI WIDTH 20.1 % (11.5-15.5)
[2019-08-30 06:29] LABS: BUN 14 mg/dL (9-20); BUN/CREATININE RATIO 14 (12-20 (CALC)); CARBON DIOXIDE 25 mmol/l (22-30); CHLORIDE 100 mmol/l (95-108); GFR > 60 ML/MIN (>=60 (CALC)); GFR FOR AFR.AMER. > 60 ML/MIN (>=60 (CALC)); MAGNESIUM 1.4 mg/dL (1.6-2.3); SODIUM 136 mmol/l (137-146)
[2019-08-30 06:44] LABS: ANION GAP 17 (6-22 (CALC))
[2019-08-30 06:45] LABS: POTASSIUM 5.8 mmol/l (3.5-5.1)
[2019-08-30 10:55] LABS: C-REACTIVE PROTEIN 2.1 mg/dL (0-0.9)
[2019-08-30 11:04] VITALS: BP 162/93
[2019-08-30 15:00] VITALS: BP 140/84
[2019-08-30 18:47] VITALS: BP 146/81
[2019-08-30 23:21] VITALS: BP 137/79
[2019-08-31 03:50] VITALS: BP 140/77
[2019-08-31 05:20] LABS: HEMATOCRIT 39.9 % (39.0-50.0); HEMOGLOBIN 12.1 g/dl (14.0-18.0); IMMATURE GRANULOCYTES 0.6 % (0.0-5.0); MEAN CELL VOLUME 94.1 fL CALC (80.0-100.0); MEAN CORPUSCULAR HGB 28.5 pG CALC (26.0-32.0); MEAN CORPUSCULAR HGB CONC 30.3 g/L CALC (32.0-36.0); NEUT# 14.35 thou/uL (1.82-7.42); RED BLOOD COUNT 4.24 mill/uL (4.70-6.10); RED CELL DISTRI WIDTH 20.1 % (11.5-15.5)
[2019-08-31 05:37] LABS: ANION GAP 14 (6-22 (CALC)); BUN 27 mg/dL (9-20); BUN/CREATININE RATIO 21 (12-20 (CALC)); CARBON DIOXIDE 30 mmol/l (22-30); CHLORIDE 98 mmol/l (95-108); CREATININE 1.3 mg/dL (0.7-1.3); GFR 59 ML/MIN (>=60 (CALC)); GFR FOR AFR.AMER. > 60 ML/MIN (>=60 (CALC)); MAGNESIUM 1.6 mg/dL (1.6-2.3); SODIUM 136 mmol/l (137-146)
[2019-08-31 05:47] LABS: POTASSIUM 5.7 mmol/l (3.5-5.1)
[2019-08-31 07:40] VITALS: BP 139/97
[2019-08-31 10:51] VITALS: BP 134/66
[2019-08-31 15:47] VITALS: BP 136/88
[2019-08-31 18:49] VITALS: BP 148/88
[2019-09-01 00:01] VITALS: BP 138/84
[2019-09-01 04:30] VITALS: BP 136/81
[2019-09-01 06:16] LABS: HEMATOCRIT 41.3 % (39.0-50.0); HEMOGLOBIN 12.2 g/dl (14.0-18.0); IMMATURE GRANULOCYTES 0.6 % (0.0-5.0); MEAN CELL VOLUME 94.9 fL CALC (80.0-100.0); MEAN CORPUSCULAR HGB CONC 29.5 g/L CALC (32.0-36.0); NEUT# 15.57 thou/uL (1.82-7.42); RED BLOOD COUNT 4.35 mill/uL (4.70-6.10); RED CELL DISTRI WIDTH 19.7 % (11.5-15.5)
[2019-09-01 06:26] LABS: ANION GAP 12 (6-22 (CALC)); BUN 36 mg/dL (9-20); BUN/CREATININE RATIO 25 (12-20 (CALC)); CARBON DIOXIDE 34 mmol/l (22-30); CHLORIDE 97 mmol/l (95-108); CREATININE 1.4 mg/dL (0.7-1.3); GFR 54 ML/MIN (>=60 (CALC)); GFR FOR AFR.AMER. > 60 ML/MIN (>=60 (CALC)); MAGNESIUM 1.8 mg/dL (1.6-2.3); POTASSIUM 4.8 mmol/l (3.5-5.1); SODIUM 138 mmol/l (137-146)
[2019-09-01 07:50] VITALS: BP 121/69
[2019-09-01] MEDS ORDERED: ASPIRIN CHEWABL81 MG PO (09:14)
[2019-09-01] MEDS ORDERED: ENTRESTO 24-261 TAB PO (09:17)
[2019-09-01] MEDS ORDERED: NEURONTIN300 MG PO (09:17)
[2019-09-01] MEDS ORDERED: APRESOLINE25 MG/TAB PO (09:19)
[2019-09-01] MEDS ORDERED: ISOSORBIDE MONO30 MG PO (09:20)
[2019-09-01] MEDS ORDERED: TOPROL XL25 M1 PO (09:21)
[2019-09-01] MEDS ORDERED: SINGULAIR10 MG PO (09:22)
[2019-09-01] MEDS ORDERED: TAMSULOSIN0.4 MG PO (09:24)
[2019-09-01 10:45] VITALS: BP 137/99
[2019-09-01 15:18] VITALS: BP 162/91
[2019-09-01] MEDS ORDERED: DOXYCYCLINE100 MG PO (15:54)
== END 2019-09-01 17:15 | disposition home or self-care (01) | DRG 291 ==
LOC: ED 20:02 → ED-I 20:23 → ED 20:23 → ED-I 08-30 00:11 → MS2 08-30 01:31
PROVIDERS: Emergency Medicine; Nurse Practitioner Family; ADMIT Internal Medicine; ATTEND Internal Medicine
DX: I13.0 Hypertensive heart and chronic kidney disease with heart failure and stage 1 through stage 4 chronic kidney disease, or unspecified chronic kidney disease (principal); J18.9 Pneumonia, unspecified organism; I50.43 Acute on chronic combined systolic (congestive) and diastolic (congestive) heart failure; J96.21 Acute and chronic respiratory failure with hypoxia; J44.1 Chronic obstructive pulmonary disease with (acute) exacerbation; J44.0 Chronic obstructive pulmonary disease with (acute) lower respiratory infection; Z68.42 Body mass index [BMI] 45.0-49.9, adult; I24.8 Other forms of acute ischemic heart disease; N18.3 Chronic kidney disease, stage 3 (moderate); I25.118 Atherosclerotic heart disease of native coronary artery with other forms of angina pectoris; I42.0 Dilated cardiomyopathy; I25.5 Ischemic cardiomyopathy; E87.5 Hyperkalemia; E66.01 Morbid (severe) obesity due to excess calories; E78.5 Hyperlipidemia, unspecified; G47.33 Obstructive sleep apnea (adult) (pediatric); I25.2 Old myocardial infarction; Z91.19 Patient's noncompliance with other medical treatment and regimen; Z99.81 Dependence on supplemental oxygen; Z86.73 Personal history of transient ischemic attack (TIA), and cerebral infarction without residual deficits; Z95.810 Presence of automatic (implantable) cardiac defibrillator; Z95.5 Presence of coronary angioplasty implant and graft
CPT/HCPCS: Q9967

== ENCOUNTER 2019-09-06 | Emergency (ER) | payer BC ==
[~2019-09-06] MED LIST changes: +APRESOLINE25 MG/TAB PO; +ASPIRIN CHEWABL81 MG PO; +DOXYCYCLINE100 MG PO; +ENTRESTO 24-261 TAB PO; +ISOSORBIDE MONO30 MG PO; +NEURONTIN300 MG PO; +SINGULAIR10 MG PO; +TAMSULOSIN0.4 MG PO; +TOPROL XL25 M1 PO
[2019-09-06] MEDS ORDERED: STERAPRED DS10 MG PO (22:14)
[2019-09-06] MEDS ORDERED: ZYLOPRIM300 MG PO (22:14)
== END 2019-09-06 22:50 | disposition home or self-care (01) | DRG 554 ==
DX: M10.071 Idiopathic gout, right ankle and foot (principal); I13.0 Hypertensive heart and chronic kidney disease with heart failure and stage 1 through stage 4 chronic kidney disease, or unspecified chronic kidney disease; I50.9 Heart failure, unspecified; N18.3 Chronic kidney disease, stage 3 (moderate); J44.9 Chronic obstructive pulmonary disease, unspecified; I25.5 Ischemic cardiomyopathy; E66.01 Morbid (severe) obesity due to excess calories; Z95.5 Presence of coronary angioplasty implant and graft; Z95.0 Presence of cardiac pacemaker

== ENCOUNTER 2019-10-18 00:28 | Observation (INO) | payer BC ==
[~2019-10-18] VITALS: Ht 170.2 cm; Wt 140.9 kg
[~2019-10-18 00:28] MED LIST changes: +STERAPRED DS10 MG PO; +ZYLOPRIM300 MG PO
--- NOTE | 2019-10-18 00:30 | NUR ---
PATIENT TO ROOM 9 VIA EMS STRETCHER. PATIENT C/O MID STERNAL CHEST PAIN ONLY WHEN HE COUGHS. STATES PAIN STARTED 2 DAYS AGO. TOOK 4 ASA WITH EMS, DECLINED THE NTG. DENIES ANY CHEST PAIN AT PRESENT. PATIENT UNDRESSED INTO A GOWN. PLACED ON MONITOR. TRIAGE COMPLETED AT BEDSIDE.
[2019-10-18 00:47] LABS: HEMATOCRIT 43.2 % (39.0-50.0); IMMATURE GRANULOCYTES 0.2 % (0.0-5.0); MEAN CELL VOLUME 94.5 fL CALC (80.0-100.0); MEAN CORPUSCULAR HGB 28.4 pG CALC (26.0-32.0); MEAN CORPUSCULAR HGB CONC 30.1 g/dL CAL (32.0-36.0); NEUT# 5.9 thou/uL (1.82-7.42); RED BLOOD COUNT 4.57 mill/uL (4.70-6.10); RED CELL DISTRI WIDTH 19.4 % (11.5-15.5)
[2019-10-18 00:59] LABS: ALBUMIN 4.4 g/dL (3.2-5.0); ALKALINE PHOSPHATASE 72 u/l (38-126); AMYLASE 65 u/l (30-110); BILIRUBIN, TOTAL 1.1 mg/dL (0.0-1.4); BUN 15 mg/dL (9-20); BUN/CREATININE RATIO 12 (12-20 (CALC)); CARBON DIOXIDE 28 mmol/l (22-30); CHLORIDE 102 mmol/l (95-108); CREATININE 1.3 mg/dL (0.7-1.3); GFR 59 ML/MIN (>=60 (CALC)); GFR FOR AFR.AMER. > 60 ML/MIN (>=60 (CALC)); LIPASE 49 u/l (23-300); SGOT/AST 39 u/l (17-59); SODIUM 140 mmol/l (137-146); TOTAL PROTEIN 7.8 g/dL (6.3-8.2)
[2019-10-18 01:01] LABS: ANION GAP 14 (6-22 (CALC)); POTASSIUM 3.8 mmol/l (3.5-5.1)
[2019-10-18 01:11] LABS: MYOGLOBIN 96 ng/mL (0 - 121)
--- NOTE | 2019-10-18 01:25 | NUR ---
PT MEDICATED WITH PO LOPRESSOR PER DR SPEAR ORDER. PT TOLERATED ADMINISTRATION WELL. RESTING ON STRETCHER WITH O2 IN PLACE @ 2L VIA NC. ADVISED OF CONTINUED WAIT FOR RESULTS. VERBALIZED UNDERSTANDING. DENIES ANY NEEDS. CALL LIGHT WITHIN REACH.
--- NOTE | 2019-10-18 01:43 | NUR ---
REPORT GIVEN TO RUSS HEREDIA ON MEDSURGE, REQUESTED ADDITIONAL 30 MIN WAIT TIME BEFORE TRANSPORT
--- NOTE | 2019-10-18 02:10 | NUR ---
PT INDIRECT ADMIT TO MED SURG FOR OBSERVATION RELATED TO C/O CHEST PAIN. COMUNICATION HAND OFF REPORT RECEIVED FROM ALEX CRAWFORD. PT ABLE TO AMBULATE TO BED. PT IS ABLE TO MAKE NEEDS KNOWN. PT DOES NOT MAKE EYE CONTACT. PT ASKED FOR TENSION WORKER FOR HIS PHONE. TENSION WORKER FOUND FOR PT'S PHONE. PT OREINTED TO ROOM, CALL LIGHT; BED CONTROL AND TV CONTROL. PT DENIES PAIN AT THIS TIME. BED IN LOWEST POSITION, CALL LIGHT WITHIN EASY REACH; BED SIDE TABLE WITHIN EASY REACH. GROUP HOME PARAPROFESSIONAL WILL CONTINUE TO MONITOR
--- NOTE | 2019-10-18 02:12 | NUR ---
PATIENT UNABLE TO COMPLETE MED REC WITH RN. PHARMACY CONSULT PLACED FOR ASSISTANCE
--- NOTE | 2019-10-18 02:13 | NUR ---
PATIENT TO FLOOR VIA WHEELCHAIR. ON O2 , OMAIRA HEREDIA.
[2019-10-18 02:18] VITALS: BP 137/95
--- NOTE | 2019-10-18 03:30 | NUR ---
PT REFUSED HIS LOVENOX. PT STATES I DO NOT NEED IT. PT ALSO REFUSED BYRON HOSE SOCKS. EDUCATION PROVIDED TO PT ON DRUG THERAPY AND COMPLICATION OF NOT TAKING THE LOVENOX. PT STILL REFUSES THE LEVONOX. DR RACHEL NOTIFIED. NO NEW ORDERS AT THIS TIME. FIRE EXTINGUISHER REPAIRER WILL CONTINUE TO MONITOR
[2019-10-18] MEDS ORDERED: PREGABALIN50 MG PO (09:18)
[2019-10-18] MEDS ORDERED: ENTRESTO 49-511 TAB PO (09:18)
[2019-10-18] MEDS ORDERED: ISOSORB MONO30 MG PO (09:19)
[2019-10-18] MEDS ORDERED: METHOCARBAMOL500 MG PO (09:19)
[2019-10-18] MEDS ORDERED: TOPROL XL PO (09:20)
[2019-10-18] MEDS ORDERED: BUMETANIDE2 MG PO (09:21)
[2019-10-18] MEDS ORDERED: CLONIDINE0.2 MG PO (09:21)
[2019-10-18] MEDS ORDERED: APRESOLINE50 MG PO (09:21)
[2019-10-18] MEDS ORDERED: LIPITOR80 M1 PO (09:22)
[2019-10-18] MEDS ORDERED: ALDACTONE25 MG PO (09:22)
[2019-10-18] MEDS ORDERED: TAMSULOSIN HCL0.4 MG PO (09:23)
[2019-10-18] MEDS ORDERED: ADVAIR DISK1 PO (09:23)
[2019-10-18] MEDS ORDERED: GABAPENTIN300 M2 PO (09:24)
[2019-10-18] MEDS ORDERED: ALLOPURINOL300 MG PO (09:24)
[2019-10-18] MEDS ORDERED: CYMBALTA30 MG PO (09:24)
[2019-10-18 11:05] VITALS: BP 142/91
== END 2019-10-18 15:57 | disposition home or self-care (01) | DRG 305 ==
LOC: ED 00:28 → ED-I 01:25 → ED 01:37 → MS2 01:38
PROVIDERS: Family Medicine; ADMIT Internal Medicine; ATTEND Internal Medicine
DX: I16.0 Hypertensive urgency (principal); Z68.42 Body mass index [BMI] 45.0-49.9, adult; I13.0 Hypertensive heart and chronic kidney disease with heart failure and stage 1 through stage 4 chronic kidney disease, or unspecified chronic kidney disease; I50.9 Heart failure, unspecified; N18.3 Chronic kidney disease, stage 3 (moderate); I25.10 Atherosclerotic heart disease of native coronary artery without angina pectoris; E66.01 Morbid (severe) obesity due to excess calories; J44.9 Chronic obstructive pulmonary disease, unspecified; I25.5 Ischemic cardiomyopathy; G47.33 Obstructive sleep apnea (adult) (pediatric); K21.9 Gastro-esophageal reflux disease without esophagitis; E78.5 Hyperlipidemia, unspecified; Z95.5 Presence of coronary angioplasty implant and graft; Z86.73 Personal history of transient ischemic attack (TIA), and cerebral infarction without residual deficits; Z99.81 Dependence on supplemental oxygen; Z95.810 Presence of automatic (implantable) cardiac defibrillator
CPT/HCPCS: G0378; J1650

== ENCOUNTER 2019-12-18 11:21 | Emergency (ER) | payer MEDICARE, BC ==
[~2019-12-18 11:21] MED LIST changes: +ADVAIR DISK1 PO; +ALLOPURINOL300 MG PO; +APRESOLINE50 MG PO; +CYMBALTA30 MG PO; +ENTRESTO 49-511 TAB PO; +LIPITOR80 M1 PO; +METHOCARBAMOL500 MG PO; +PREGABALIN50 MG PO; +TAMSULOSIN HCL0.4 MG PO; +TOPROL XL PO
[2019-12-18 11:44] LABS: HEMOGLOBIN 10.8 g/dl (14.0-18.0); IMMATURE GRANULOCYTES 1.1 % (0.0-5.0); MEAN CELL VOLUME 93.8 fL CALC (80.0-100.0); MEAN CORPUSCULAR HGB 28.1 pG CALC (26.0-32.0); NEUT# 4.44 thou/uL (1.82-7.42); RED BLOOD COUNT 3.84 mill/uL (4.70-6.10); RED CELL DISTRI WIDTH 21.5 % (11.5-15.5)
[2019-12-18 11:56] LABS: ALBUMIN 4.4 g/dL (3.2-5.0); ALKALINE PHOSPHATASE 102 u/l (38-126); AMYLASE 64 u/l (30-110); BUN 32 mg/dL (9-20); BUN/CREATININE RATIO 21 (12-20 (CALC)); CARBON DIOXIDE 30 mmol/l (22-30); CHLORIDE 96 mmol/l (95-108); CPK 104 u/l (52-200); CREATININE 1.5 mg/dL (0.7-1.3); ETHYL ALCOHOL 11 mg/dl (0-30); GFR 50 ML/MIN (>=60 (CALC)); GFR FOR AFR.AMER. > 60 ML/MIN (>=60 (CALC)); LIPASE 63 u/l (23-300); SGOT/AST 53 u/l (17-59); SODIUM 137 mmol/l (137-146); TOTAL PROTEIN 8.5 g/dL (6.3-8.2)
[2019-12-18 11:57] LABS: ANION GAP 16 (6-22 (CALC)); BILIRUBIN, TOTAL 1.6 mg/dL (0.0-1.4); MAGNESIUM 1.3 mg/dL (1.6-2.3); POTASSIUM 5.1 mmol/l (3.5-5.1)
[2019-12-18 12:00] LABS: ACT PARTIAL THROMBO TIME 26.1 SECONDS (20.0-32.5); INTERNATIONAL NORMALIZED RATIO 1.1 RATIO (0.7-1.3); PROTHROMBIN TIME 11.9 SECONDS (9.0-12.5)
[2019-12-18] MEDS ORDERED: METOPROLOL SUCC50 MG PO (12:49)
[2019-12-18] MEDS ORDERED: DICLOFENAC SODIUM1 % EX (12:50)
[2019-12-18] MEDS ORDERED: ISOSORBIDE MONO30 MG PO (12:51)
[2019-12-18] MEDS ORDERED: MONTELUKAST SOD10 MG PO (12:52)
[2019-12-18] MEDS ORDERED: LEVETIRACETAM500 MG PO (12:52)
[2019-12-18] MEDS ORDERED: ENTRESTO 24-261 TAB PO (12:54)
[2019-12-18] MEDS ORDERED: ATORVASTATIN CA80 MG PO (12:56)
[2019-12-18] MEDS ORDERED: LYRICA50 MG PO (12:58)
[2019-12-18] MEDS ORDERED: NEURONTIN300 MG PO (12:59)
[2019-12-18] MEDS ORDERED: ZYLOPRIM300 MG PO (13:00)
[2019-12-18 13:41] VITALS: BP 121/84
[2019-12-18 14:58] LABS: BARBITURATES NEGATIVE (NEGATIVE); COCAINE NEGATIVE (NEGATIVE); METHADONE NEGATIVE (NEGATIVE); OXCYCODONE NEGATIVE (NEGATIVE); TETRAHYDROCANNABIONOL NEGATIVE (NEGATIVE); TRICYLIC ANTIDEPRESSANTS NEGATIVE (NEGATIVE); URINE BILIRUBIN - DIPSTICK NEGATIVE (NEGATIVE); URINE BLOOD DIPSTICK NEGATIVE (NEGATIVE); URINE COLOR YELLOW; URINE GLUCOSE - DIPSTICK NEGATIVE (NEGATIVE); URINE KETONE 15 mg/dL (NEGATIVE); URINE LEUK ESTERASE TRACE (NEGATIVE); URINE NITRITE - DIPSTICK NEGATIVE (Negative); URINE PROTEIN - DIPSTICK NEGATIVE (NEG-TRACE); URINE SPECIFIC GRAVITY 1.025; URINE UROBILINOGEN - DIPSTICK 0.2 E.U./dL (0.2)
== END 2019-12-18 14:00 | disposition home or self-care (01) | DRG 178 ==
LOC: ED 11:21
DX: U07.1 COVID-19 (principal); I13.0 Hypertensive heart and chronic kidney disease with heart failure and stage 1 through stage 4 chronic kidney disease, or unspecified chronic kidney disease; R53.1 Weakness; E83.42 Hypomagnesemia; I50.9 Heart failure, unspecified; N18.3 Chronic kidney disease, stage 3 (moderate); J44.9 Chronic obstructive pulmonary disease, unspecified; G47.30 Sleep apnea, unspecified; I25.5 Ischemic cardiomyopathy; E66.01 Morbid (severe) obesity due to excess calories; Z95.5 Presence of coronary angioplasty implant and graft; Z95.810 Presence of automatic (implantable) cardiac defibrillator

== ENCOUNTER 2019-12-23 03:33 | Inpatient (IN) | payer MEDICARE, BC ==
[2019-12-23] VITALS (19 sets, daily range): BP systolic 72–136; BP diastolic 38–69
[~2019-12-23 03:33] MED LIST changes: +ATORVASTATIN CA80 MG PO; +DICLOFENAC SODIUM1 % EX; +LEVETIRACETAM500 MG PO; +LYRICA50 MG PO; +METOPROLOL SUCC50 MG PO; +MONTELUKAST SOD10 MG PO
[2019-12-23 04:40] LABS: HEMATOCRIT 35.3 % (39.0-50.0); HEMOGLOBIN 10.3 g/dl (14.0-18.0); IMMATURE GRANULOCYTES 0.8 % (0.0-5.0); MEAN CELL VOLUME 96.2 fL CALC (80.0-100.0); MEAN CORPUSCULAR HGB 28.1 pG CALC (26.0-32.0); MEAN CORPUSCULAR HGB CONC 29.2 g/dL CAL (32.0-36.0); NEUT# 3.96 thou/uL (1.82-7.42); RED BLOOD COUNT 3.67 mill/uL (4.70-6.10); RED CELL DISTRI WIDTH 22.3 % (11.5-15.5)
[2019-12-23 05:49] LABS: URINE BLOOD DIPSTICK NEGATIVE (NEGATIVE); URINE COLOR YELLOW; URINE GLUCOSE - DIPSTICK NEGATIVE (NEGATIVE); URINE KETONE TRACE mg/dL (NEGATIVE); URINE NITRITE - DIPSTICK NEGATIVE (Negative); URINE PROTEIN - DIPSTICK >=300 mg/dL (NEG-TRACE); URINE SPECIFIC GRAVITY >=1.030
[2019-12-23 05:54] LABS: URINE BILIRUBIN - DIPSTICK MODERATE (NEGATIVE)
[2019-12-23 05:55] LABS: URINE LEUK ESTERASE NEGATIVE (NEGATIVE)
[2019-12-23 05:59] LABS: ALBUMIN 3.9 g/dL (3.2-5.0); BILIRUBIN, TOTAL 1.3 mg/dL (0.0-1.4); MAGNESIUM 1.6 mg/dL (1.6-2.3); TOTAL PROTEIN 7.4 g/dL (6.3-8.2); URINE BACTERIA MODERATE hpf; URINE EPITHELIAL CELLS MODERATE EPI/hpf (0-FEW)
[2019-12-23 06:05] LABS: CREATININE 2.6 mg/dL (0.7-1.3)
[2019-12-24] VITALS (16 sets, daily range): BP systolic 115–165; BP diastolic 57–95
[2019-12-24 11:27] LABS: CREATININE 1.8 mg/dL (0.7-1.3)
[2019-12-24 11:30] LABS: C-REACTIVE PROTEIN 2.2 mg/dL (0-0.9)
[2019-12-24 12:02] LABS: POTASSIUM 5.3 mmol/l (3.5-5.1)
[2019-12-25] VITALS (12 sets, daily range): BP systolic 137–183; BP diastolic 68–104
[2019-12-25 10:36] LABS: C. DIFFICILE TOXIN A&B NEGATIVE (NEGATIVE)
[2019-12-26] VITALS (21 sets, daily range): BP systolic 131–194; BP diastolic 64–116
[2019-12-26 05:31] LABS: HEMATOCRIT 37.8 % (39.0-50.0); HEMOGLOBIN 10.8 g/dl (14.0-18.0); IMMATURE GRANULOCYTES 0.9 % (0.0-5.0); MEAN CELL VOLUME 96.4 fL CALC (80.0-100.0); MEAN CORPUSCULAR HGB 27.6 pG CALC (26.0-32.0); MEAN CORPUSCULAR HGB CONC 28.6 g/dL CAL (32.0-36.0); NEUT# 6.66 thou/uL (1.82-7.42); RED BLOOD COUNT 3.92 mill/uL (4.70-6.10); RED CELL DISTRI WIDTH 21.5 % (11.5-15.5)
[2019-12-26 06:05] LABS: ALBUMIN 3.9 g/dL (3.2-5.0); ALKALINE PHOSPHATASE 115 u/l (38-126); ANION GAP 16 (6-22 (CALC)); BILIRUBIN, TOTAL 1.6 mg/dL (0.0-1.4); BUN 26 mg/dL (9-20); BUN/CREATININE RATIO 23 (12-20 (CALC)); C-REACTIVE PROTEIN 5.3 mg/dL (0-0.9); CARBON DIOXIDE 26 mmol/l (22-30); CHLORIDE 102 mmol/l (95-108); CREATININE 1.1 mg/dL (0.7-1.3); GFR > 60 ML/MIN (>=60 (CALC)); GFR FOR AFR.AMER. > 60 ML/MIN (>=60 (CALC)); SGOT/AST 42 u/l (17-59); SODIUM 138 mmol/l (137-146); TOTAL PROTEIN 7.5 g/dL (6.3-8.2)
[2019-12-26 06:32] LABS: POTASSIUM 5.8 mmol/l (3.5-5.1)
[2019-12-27] VITALS (21 sets, daily range): BP systolic 108–146; BP diastolic 57–85
[2019-12-27 09:41] LABS: BUN 26 mg/dL (9-20); BUN/CREATININE RATIO 24 (12-20 (CALC)); CARBON DIOXIDE 29 mmol/l (22-30); CHLORIDE 103 mmol/l (95-108); CREATININE 1.1 mg/dL (0.7-1.3); GFR > 60 ML/MIN (>=60 (CALC)); GFR FOR AFR.AMER. > 60 ML/MIN (>=60 (CALC)); MAGNESIUM 1.5 mg/dL (1.6-2.3); SODIUM 141 mmol/l (137-146)
[2019-12-27 09:44] LABS: ANION GAP 15 (6-22 (CALC)); POTASSIUM 5.7 mmol/l (3.5-5.1)
[2019-12-28] VITALS (17 sets, daily range): BP systolic 111–171; BP diastolic 61–90
[2019-12-28 06:46] LABS: HEMATOCRIT 37.3 % (39.0-50.0); HEMOGLOBIN 10.7 g/dl (14.0-18.0); IMMATURE GRANULOCYTES 0.6 % (0.0-5.0); MEAN CELL VOLUME 97.6 fL CALC (80.0-100.0); MEAN CORPUSCULAR HGB CONC 28.7 g/dL CAL (32.0-36.0); NEUT# 5.57 thou/uL (1.82-7.42); RED BLOOD COUNT 3.82 mill/uL (4.70-6.10); RED CELL DISTRI WIDTH 22.1 % (11.5-15.5)
[2019-12-28 07:07] LABS: ALBUMIN 3.3 g/dL (3.2-5.0); ALKALINE PHOSPHATASE 107 u/l (38-126); ANION GAP 13 (6-22 (CALC)); BILIRUBIN, TOTAL 1.7 mg/dL (0.0-1.4); BUN 29 mg/dL (9-20); BUN/CREATININE RATIO 27 (12-20 (CALC)); CARBON DIOXIDE 30 mmol/l (22-30); CHLORIDE 104 mmol/l (95-108); CREATININE 1.1 mg/dL (0.7-1.3); GFR > 60 ML/MIN (>=60 (CALC)); GFR FOR AFR.AMER. > 60 ML/MIN (>=60 (CALC)); POTASSIUM 5.1 mmol/l (3.5-5.1); SGOT/AST 37 u/l (17-59); SODIUM 141 mmol/l (137-146); TOTAL PROTEIN 6.6 g/dL (6.3-8.2)
[2019-12-28 07:28] LABS: C-REACTIVE PROTEIN 15.5 mg/dL (0-0.9)
== END 2019-12-28 21:00 | disposition expired | DRG 177 ==
LOC: ED 03:33 → ED-I 07:05 → ED 07:19 → ED-I 07:20 → MS2 07:36 → ICU 08:44 → MS2 12-25 13:48 → ICU 12-26 11:54
PROVIDERS: Emergency Medicine; ADMIT Internal Medicine; ATTEND Internal Medicine
PROC: 5A09357 Assistance with Respiratory Ventilation, Less than 24 Consecutive Hours, Continuous Positive Airway Pressure (ICD-10-PCS; principal; 2019-12-23)
PROC: 0T9B70Z Drainage of Bladder with Drainage Device, Via Natural or Artificial Opening (ICD-10-PCS; 2019-12-23)
PROC: 0BH17EZ Insertion of Endotracheal Airway into Trachea, Via Natural or Artificial Opening (ICD-10-PCS; 2019-12-28)
PROC: 06HY33Z Insertion of Infusion Device into Lower Vein, Percutaneous Approach (ICD-10-PCS; 2019-12-28)
PROC: 5A12012 Performance of Cardiac Output, Single, Manual (ICD-10-PCS; 2019-12-28)
DX: U07.1 COVID-19 (principal); J12.89 Other viral pneumonia; J96.22 Acute and chronic respiratory failure with hypercapnia; J96.21 Acute and chronic respiratory failure with hypoxia; J44.0 Chronic obstructive pulmonary disease with (acute) lower respiratory infection; Z68.42 Body mass index [BMI] 45.0-49.9, adult; I13.0 Hypertensive heart and chronic kidney disease with heart failure and stage 1 through stage 4 chronic kidney disease, or unspecified chronic kidney disease; I50.22 Chronic systolic (congestive) heart failure; N17.9 Acute kidney failure, unspecified; I42.0 Dilated cardiomyopathy; R04.2 Hemoptysis; G40.909 Epilepsy, unspecified, not intractable, without status epilepticus; I25.119 Atherosclerotic heart disease of native coronary artery with unspecified angina pectoris; N18.3 Chronic kidney disease, stage 3 (moderate); E66.01 Morbid (severe) obesity due to excess calories; R19.7 Diarrhea, unspecified; E87.5 Hyperkalemia; E78.5 Hyperlipidemia, unspecified; G47.33 Obstructive sleep apnea (adult) (pediatric); N40.0 Benign prostatic hyperplasia without lower urinary tract symptoms; I25.5 Ischemic cardiomyopathy; Z95.5 Presence of coronary angioplasty implant and graft; Z95.810 Presence of automatic (implantable) cardiac defibrillator; Z86.73 Personal history of transient ischemic attack (TIA), and cerebral infarction without residual deficits; Z99.81 Dependence on supplemental oxygen
CPT/HCPCS: J0282; J1650; J1953; J2060; J3475; Q3014